=== PATIENT | male | born 1935 | race Caucasian/White ===

== ENCOUNTER → 2016-07-24 | Day surgery (SDC) | payer OTHER ==
[~2016-07-24] VITALS: Ht 182.9 cm; Wt 81.2 kg
[~2016-07-24] MED LIST: ALBU17IN INH; AMOX500C PO; ASPI81CH32 PO; ASPI81TA85 PO; ASPIRIN 81 MG CHEW TABLET PO ONE; B-12100010 PO; B-12500T2 PO; BABY81CH OR; BUPIVACAINE/EPIN 0.25% 30 ML VIAL As Ordered ONE; BUPIVACAINE/EPIN 0.25% 30 ML VIAL XX ONE; CLAR5CHW OR; CLOP75TA2 PO; COMBAER6 INH; DIOV160T5 OR; ESMOLOL INJ 100MG/10ML VIAL As Ordered ONE; FINA5TAB2 PO; FISH1000 PO; FLUD1TA PO; FLUO-144 TOP; FLUO20CA9 PO; FLUO40CA PO; FURO20TA2 OR; GABA-279 PO; GLUC1000 OR; GLYCOPYRROLATE INJ 0.2 MG/ML 2 ML VIAL As Ordered ONE; HYDR-3781 PO; IBUP200C PO; ICAP1CAP PO; K-TA10TA2 PO; LEVALBUTEROL 1.25 MG/0.5 ML CONCENTRATE NEB NEB ONE; LIDO1OIN2 TOP; LIDO5DIS36 TD; LIDOCAINE 2% INJ 100 MG/5 ML SDV (FOR ANES.) As Ordered ONE; LOPR50TA OR; LORA10TA2 PO; LORA1SOL PO; LOSA25TA8 PO; LR 1,000 ML IV SCH; LUBROIN4 OU; METF1000 PO; MULTCAP PO; MULTIVIT PO; NATUSOL OU; NEOSTIGMINE 1MG/ML 5 ML SYRINGE (J2710) As Ordered ONE; NIAC500T OR; NIAC500T5 PO; NITR0.4S SL; NITR4TASL SL; NORV5TAB PO; ONDANSETRON 4MG/2ML VIAL (J2405) As Ordered ONE; ONDANSETRON 4MG/2ML VIAL (J2405) IV PRN; PEPT262S PO; PERCOCET 5MG/325MG TAB PO PRN; PHENYLephrine HCL 500 MCG/5 ML (100MCG/ML) SYRINGE (J2370) As Ordered ONE; PLAV75TA2 OR; PLAV75TA38 PO; PREDOPD OD; PROPOFOL 200 MG/20 ML VIAL As Ordered ONE; RANI1TAB6 PO; ROCURONIUM BROMIDE 50 MG/5 ML VIAL As Ordered ONE; SENN8.6C PO; SENN8.6T14 OR; SENN8.6T63 PO; SIMV40TA2 PO; SIMV80TA PO; SUDAFED PE PO; TEARSPF OU; TRAM50TA2 PO; VIT D 2000 PO; VITA-122 PO; VITA100T OR; VITA1CAP2 PO; [UNRECOGNIZED DRUG - CODE] XX; dexameTHASONE 4 MG/ML 1ML VIAL (J1100) As Ordered ONE; fentaNYL 100 MCG/2 ML INJECTION (J3010) As Ordered ONE; fentaNYL 100 MCG/2 ML INJECTION (J3010) IV PRN
[2016-07-24 16:50] VITALS: BP 171/79
--- NOTE | 2016-07-25 09:49 | RO ---
DATE OF PROCEDURE: 07/24/2016 PREOPERATIVE DIAGNOSIS: Incarcerated recurrent left inguinal hernia. POSTOPERATIVE DIAGNOSIS: Incarcerated recurrent left inguinal hernia. PROCEDURE: Laparoscopic incarcerated recurrent left inguinal hernia repair with mesh. SURGEON: Dr. Rojas DIRECTOR GEOTHERMAL OPERATIONS: Dr. Andrew ANESTHESIA: General. ESTIMATED BLOOD LOSS: 5 mL. COMPLICATIONS: None. INDICATIONS FOR PROCEDURE: The patient is an 81-year-old male who has had three previous hernia repairs in the left groin, presents with an incarcerated recurrent hernia. Recommendation is to proceed with laparoscopic, possible open repair. Risks and benefits of the procedure, not limited, but including bleeding, infection, hernia recurrence, damage to surrounding structures, need for further surgery were discussed in detail with the patient. Informed consent was obtained and procedure was planned. DESCRIPTION OF PROCEDURE: The patient was brought back to operating room 8. After sufficient sedation, the abdomen sterilely prepped and draped. A Clinton catheter was placed. Next, a time-out was done to confirm proper patient and proper procedure. Following that, a 2 cm infraumbilical incision was made. Incision was carried down the level of fascia. Fascia was opened just to the right of midline. Preperitoneal space was entered and a balloon dissector was placed. After balloon dissection, that was removed and replaced with a 10 mm balloon port. The preperitoneal space was then insufflated to 50 mmHg. Two 5 mm ports were placed in the midline in between the umbilicus and the pubic symphysis. Using a combination of blunt sharp dissection, a large direct incarcerated hernia was carefully reduced on the left direct sub space. Adhesions were taken down using a combination of sharp dissection and some cautery. Once the hernia was able to be reduced then there was also an indirect hernia. This hernia sac was carefully dissected free from the cord structures, both posteriorly and laterally. Once all the peritoneum had been reduced back, the Bard 3-D Max large mesh was rolled up and placed inside the preperitoneal space on the left side. The mesh was laid flat, tacked to the pubic symphysis at the midline using a Pro Tacker, unrolled laterally. The hernia sac was then placed on top of the mesh and held in place as the preperitoneal space was desufflated. Next, the port sites were removed. The fascia at the umbilical port site was closed using a [id number] #0 Vicryl suture. Skin incisions were closed #4-0 Vicryl subcuticular sutures. The abdomen was cleaned and dried. Steri-Strips, 4x4 and tape were applied, thus ending procedure.
== END | disposition home or self-care (01) ==
LOC: M SDC 11:01
PROVIDERS: ATTEND Surgery
DX: K40.31 Unilateral inguinal hernia, with obstruction, without gangrene, recurrent (principal); I10 Essential (primary) hypertension; I48.91 Unspecified atrial fibrillation; I25.10 Atherosclerotic heart disease of native coronary artery without angina pectoris; E11.9 Type 2 diabetes mellitus without complications; J44.9 Chronic obstructive pulmonary disease, unspecified; G47.30 Sleep apnea, unspecified; N28.9 Disorder of kidney and ureter, unspecified; E78.00 Pure hypercholesterolemia, unspecified; I25.2 Old myocardial infarction; F41.9 Anxiety disorder, unspecified; F32.9 Major depressive disorder, single episode, unspecified; I50.9 Heart failure, unspecified; M51.9 Unspecified thoracic, thoracolumbar and lumbosacral intervertebral disc disorder; G62.9 Polyneuropathy, unspecified; Z95.0 Presence of cardiac pacemaker; Z79.899 Other long term (current) drug therapy; Z79.82 Long term (current) use of aspirin; Z79.02 Long term (current) use of antithrombotics/antiplatelets; Z79.84 Long term (current) use of oral hypoglycemic drugs; Z87.891 Personal history of nicotine dependence; Z95.5 Presence of coronary angioplasty implant and graft
CPT/HCPCS: 49651; C1781; J0690; J1100; J2370; J2405; J2710; J3010

== ENCOUNTER → 2016-09-28 | Outpatient (REF) | payer OTHER ==
[~2016-09-28] MED LIST changes: -ASPIRIN 81 MG CHEW TABLET PO ONE; -BUPIVACAINE/EPIN 0.25% 30 ML VIAL As Ordered ONE; -BUPIVACAINE/EPIN 0.25% 30 ML VIAL XX ONE; -ESMOLOL INJ 100MG/10ML VIAL As Ordered ONE; -GLYCOPYRROLATE INJ 0.2 MG/ML 2 ML VIAL As Ordered ONE; -LEVALBUTEROL 1.25 MG/0.5 ML CONCENTRATE NEB NEB ONE; -LIDOCAINE 2% INJ 100 MG/5 ML SDV (FOR ANES.) As Ordered ONE; -LR 1,000 ML IV SCH; -NEOSTIGMINE 1MG/ML 5 ML SYRINGE (J2710) As Ordered ONE; -ONDANSETRON 4MG/2ML VIAL (J2405) As Ordered ONE; -ONDANSETRON 4MG/2ML VIAL (J2405) IV PRN; -PERCOCET 5MG/325MG TAB PO PRN; -PHENYLephrine HCL 500 MCG/5 ML (100MCG/ML) SYRINGE (J2370) As Ordered ONE; -PROPOFOL 200 MG/20 ML VIAL As Ordered ONE; -ROCURONIUM BROMIDE 50 MG/5 ML VIAL As Ordered ONE; -dexameTHASONE 4 MG/ML 1ML VIAL (J1100) As Ordered ONE; -fentaNYL 100 MCG/2 ML INJECTION (J3010) As Ordered ONE; -fentaNYL 100 MCG/2 ML INJECTION (J3010) IV PRN
== END ==
LOC: M SFHCLERA 14:47
PROVIDERS: ATTEND Nurse Practitioner Family
DX: R30.0 Dysuria (principal)
CPT/HCPCS: 81002; 87086; G0463

== ENCOUNTER 2016-10-23 09:27 | Emergency (ER) | payer OTHER ==
[~2016-10-23] VITALS: Ht 182.9 cm; Wt 80.7 kg
[2016-10-23] MEDS ORDERED: ATEN25TA PO (09:42)
[2016-10-23] MEDS ORDERED: HYDR-3713 PO (09:42)
[2016-10-23] MEDS ORDERED: APAP325T PO (09:42)
[2016-10-23] MEDS ORDERED: PERCOCET 5MG/325MG TAB PO ONE (10:30)
--- NOTE | 2016-10-23 11:10 | REP ---
CT HEAD WITHOUT CONTRAST: HISTORY: Trauma. COMPARISON: 05/30/2014. Areas of decreased attenuation are present in the periventricular and subcortical white matter. This represents small vessel ischemic disease. There is no intraparenchymal hemorrhage, mass or midline shift. The ventricular system and cortical sulci are dilated consistent with mild volume loss. There is no extracerebral collection. There is no fracture. The visualized sinuses are clear. IMPRESSION: 1. Small vessel ischemic disease. 2. Mild volume loss. Signed by Javier Damian MD 10/23/2016 11:35 A
[2016-10-23 11:42] VITALS: BP 143/80
--- NOTE | 2016-10-23 11:52 | REP ---
CT CERVICAL SPINE WITHOUT CONTRAST: HISTORY: Trauma. There is no acute fracture or subluxation. Disc bulges are present at the C2-3 and C3-4 levels. Disc bulges with associated osteophyte formation are present at the C4-5 through C6-7 levels. There is minimal narrowing of the spinal canal. Uncinate process and/or facet hypertrophy are present at the C2-3 through C7-T1 levels. These findings produce minimal to moderate narrowing of the normal foramina. The C4-5 through C7-T1 intervertebral discs are decreased in height. Vacuum phenomenon is present at the C4-5 and C5-6 levels. These findings are consistent with disc degeneration. IMPRESSION: There is no acute fracture or subluxation. There is cervical spondylosis at the C2-3 through C7-T1 levels. Signed by Javier Damian MD 10/23/2016 11:57 A
== END 2016-10-23 11:43 | disposition home or self-care (01) ==
LOC: M ED 10:43
DX: S00.93XA Contusion of unspecified part of head, initial encounter (principal); S10.93XA Contusion of unspecified part of neck, initial encounter; W19.XXXA Unspecified fall, initial encounter; Y92.89 Other specified places as the place of occurrence of the external cause; Y93.89 Activity, other specified; Y99.8 Other external cause status; R51 Headache; I10 Essential (primary) hypertension; E11.9 Type 2 diabetes mellitus without complications; J44.9 Chronic obstructive pulmonary disease, unspecified; I25.2 Old myocardial infarction; F43.10 Post-traumatic stress disorder, unspecified; E78.9 Disorder of lipoprotein metabolism, unspecified; Z95.5 Presence of coronary angioplasty implant and graft; Z87.442 Personal history of urinary calculi; Z79.899 Other long term (current) drug therapy; Z79.01 Long term (current) use of anticoagulants; Z79.84 Long term (current) use of oral hypoglycemic drugs; Z79.82 Long term (current) use of aspirin; Z79.891 Long term (current) use of opiate analgesic; Z85.828 Personal history of other malignant neoplasm of skin

== ENCOUNTER 2017-02-05 20:06 | Emergency (ER) | payer OTHER ==
[~2017-02-05] VITALS: Ht 182.9 cm; Wt 84.1 kg
[~2017-02-05 20:06] MED LIST changes: +APAP325T4 PO; +ATEN25TA PO; +FLUD0.1T PO; -FLUD1TA PO; +FLUO20CA19 PO; -FLUO20CA9 PO; +HYDR-3713 PO; -IBUP200C PO; +IBUP200C10 PO; -LIDO5DIS36 TD; +LIDO5DIS41 TD; -METF1000 PO; +METF10004 PO; +PLAV1TAB2 PO; -PLAV75TA38 PO; +TEAR1SOL3 OU; -TEARSPF OU
[2017-02-05] MEDS ORDERED: NORC10TA21 PO (20:26)
[2017-02-05] MEDS ORDERED: MORPHINE 4 MG/ML 1ML SYRINGE IV PRN (21:00)
--- NOTE | 2017-02-05 21:40 | REPUSA ---
CT of the head Clinical history: trauma. Comparison: 10/23/2016. Protocol: Multiple axial CT images obtained with 5 mm slice thickness were obtained through the head without administration of contrast. Findings: The ventricles and sulci are symmetric but prominent in size bilaterally. There are periven tricular areas of low attenuation throughout the deep white matter. There is no evidence of acute hem orrhage or infarct. There is no midline shift, mass effect, or extra-axial fluid collection. The osse ous structures are unremarkable. The visualized paranasal sinuses and mastoid air cells are clear. Impression: No acute hemorrhage or infarct. Findings are consistent with age-related atrophy and obstetrics nurse janelle small vessel ischemic disease.
--- NOTE | 2017-02-05 21:40 | REPUSA ---
CT of the cervical spine Clinical history: Pain. Technique: Multiple axial CT images were obtained through the cervical spine without administration o f contrast. Coronal and sagittal 3-D reconstructed images were also obtained. Comparison: None. Findings: The cervical vertebral bodies are in satisfactory positioning and alignment. No fractures or dislocat ions are demonstrated. The odontoid process is intact. Intervertebral disc spaces are moderately narr owed at C4/C5, C5/C6, and C6/C7. There is no evidence of facet subluxation. Mild facet degenerative c hanges are seen bilaterally. The neural foramen appear grossly patent. The cervical cranial junction is intact. The cervical spinal canal demonstrates normal caliber and contour without evidence of spin al stenosis. The surrounding soft tissues are within normal limits. Impression: No acute fracture or traumatic injury. Mild bilateral facet arthropathy. Multilevel degen erative disc disease from C4 through C7.
[2017-02-05 21:43] LABS: BASO % 0.9 % (0.0-1.0); EOS # 0.8 K/mm3 (0.0-0.50); EOS % 13.4 % (0.0-3.0); LARGE UNSTAINED CELL # 0.2 K/mm3 (0.0-0.4); LARGE UNSTAINED CELL % 3.1 % (0.0-4.0); LYMPH % 18.6 % (24.0-44.0); MEAN CORPUSCULAR HEMOGLOBIN 29.6 pg (27.0-33.0); MEAN CORPUSCULAR HGB CONC 33.1 g/dl (32.0-36.5); MEAN CORPUSCULAR VOLUME 89.5 fl (80.0-96.0); MONO # 0.4 K/mm3 (0.0-0.8); MONO % 7.1 % (0.0-5.0); NEUTROPHILS # 3.2 K/mm3 (1.8-7.7); NEUTROPHILS % 56.9 % (36.0-66.0); PLATELET COUNT, AUTOMATED 213 k/mm3 (150-450); RED CELL DISTRIBUTION WIDTH 13.8 % (11.5-14.5); WHITE BLOOD COUNT 5.6 K/mm3 (4.0-10.0)
[2017-02-05 21:50] LABS: INR 0.95
[2017-02-05 22:14] LABS: ALBUMIN 3.4 GM/DL (3.2-5.2); ALBUMIN/GLOBULIN RATIO 1.06 (1.00-1.93); ALKALINE PHOSPHATASE 62 U/L (45-117); ALT/SGPT 18 U/L (12-78); ANION GAP 9 MEQ/L (8-16); AST/SGOT 13 U/L (15-37); BILIRUBIN,DIRECT < 0.1 MG/DL (0.0-0.2); BILIRUBIN,TOTAL 0.2 MG/DL (0.2-1.0); BLOOD UREA NITROGEN 13 MG/DL (7-18); CALCIUM LEVEL 8.8 MG/DL (8.8-10.2); CARBON DIOXIDE LEVEL 26 MEQ/L (21-32); CHLORIDE LEVEL 105 MEQ/L (98-107); CREATININE FOR GFR 0.72 MG/DL (0.70-1.30); GLOMERULAR FILTRATION RATE > 60.0 (>35); GLUCOSE, FASTING 121 MG/DL (83-110); POTASSIUM SERUM 4.4 MEQ/L (3.5-5.1); SODIUM LEVEL 140 MEQ/L (136-145); TOTAL PROTEIN 6.6 GM/DL (6.4-8.2)
[2017-02-05] MEDS ORDERED: LIDO1OIN2 TOP (22:42)
[2017-02-05 23:09] VITALS: BP 172/92
--- NOTE | 2017-02-06 08:15 | ECGEPIP ---
Stationary ECG Study [facility] - ED Test Date: 2017-02-05 Pat Name: BRANDT ADLER Department: Room: - Gender: M Controller Instructor: bianca FRANKLINB: 1935 Requested By: GOSIA Tapia Order Number: [id number] Reading MD: Eve Cortez Measurements Intervals [place] Rate: 61 P: 217 WV: 153 QRS: -70 QRSD: 167 T: 72 QT: 463 QTc: 469 Interpretive Statements ELECTRONIC ATRIAL PACEMAKER ELECTRONIC VENTRICULAR PACEMAKER ABNORMAL RHYTHM ECG Electronically Signed On 02-06-2017 8:15:37 EDT by Eve Cortez
== END 2017-02-05 23:11 | disposition home or self-care (01) ==
LOC: M ED 20:06
DX: S16.1XXA Strain of muscle, fascia and tendon at neck level, initial encounter (principal); S00.03XA Contusion of scalp, initial encounter; W19.XXXA Unspecified fall, initial encounter; Y92.89 Other specified places as the place of occurrence of the external cause; Y93.89 Activity, other specified; Y99.8 Other external cause status; M50.30 Other cervical disc degeneration, unspecified cervical region; I50.9 Heart failure, unspecified; Z91.81 History of falling; J44.9 Chronic obstructive pulmonary disease, unspecified; I11.0 Hypertensive heart disease with heart failure; E11.9 Type 2 diabetes mellitus without complications; G47.30 Sleep apnea, unspecified; F33.9 Major depressive disorder, recurrent, unspecified; F41.9 Anxiety disorder, unspecified; F43.10 Post-traumatic stress disorder, unspecified; Z79.899 Other long term (current) drug therapy; Z79.84 Long term (current) use of oral hypoglycemic drugs; Z79.82 Long term (current) use of aspirin; Z95.5 Presence of coronary angioplasty implant and graft; Z95.0 Presence of cardiac pacemaker; I25.2 Old myocardial infarction; Z87.442 Personal history of urinary calculi

== ENCOUNTER 2017-06-04 01:45 | Inpatient (IN) | payer OTHER ==
[2017-06-04] MEDS: NS 500 ML IV (02:15)
[2017-06-04 02:33] LABS: BASO # 0.1 10^3/uL (0.0-0.2); BASO % 0.9 % (0.0-1.0); EOS # 0.5 10^3/uL (0.0-0.50); EOS % 6.4 % (0.0-3.0); HEMATOCRIT 39.8 % (42.0-52.0); HEMOGLOBIN 13.1 g/dl (14.0-18.0); IMMATURE GRANULOCYTE % 0.4 % (0-0); LYMPH # 1.3 10^3/uL (1.5-4.5); LYMPH % 16.8 % (24.0-44.0); MEAN CORPUSCULAR HEMOGLOBIN 29.6 pg (27.0-33.0); MEAN CORPUSCULAR HGB CONC 32.9 g/dl (32.0-36.5); MONO # 0.9 10^3/uL (0.0-0.8); MONO % 11.2 % (0.0-5.0); NEUTROPHILS % 64.3 % (36.0-66.0); PLATELET COUNT, AUTOMATED 232 10^3/uL (150-450); RED BLOOD COUNT 4.42 10^6/uL (4.30-6.10); RED CELL DISTRIBUTION WIDTH 13.7 % (11.5-14.5); WHITE BLOOD COUNT 7.8 10^3/uL (4.0-10.0)
[2017-06-04 02:53] LABS: ANION GAP 5 MEQ/L (8-16); BLOOD UREA NITROGEN 18 MG/DL (7-18); CALCIUM LEVEL 9.1 MG/DL (8.8-10.2); CARBON DIOXIDE LEVEL 28 MEQ/L (21-32); CHLORIDE LEVEL 109 MEQ/L (98-107); CREATININE FOR GFR 0.85 MG/DL (0.70-1.30); GLOMERULAR FILTRATION RATE > 60.0 (>35); GLUCOSE, FASTING 109 MG/DL (83-110); POTASSIUM SERUM 3.7 MEQ/L (3.5-5.1); SODIUM LEVEL 142 MEQ/L (136-145)
[2017-06-04] MEDS: dexameTHASONE 20 MG/5 ML VIAL (J1100) IV (03:15)
[2017-06-04] MEDS: IPRATROPIUM 0.5MG/ALBUTEROL 2.5MG INH SOL UD 3ML (DUONEB)(J7620) NEB ×4 (03:15→15:51)
[2017-06-04 03:24] LABS: ABG BASE EXCESS -1.2 (-2.0-2.0); ABG HCO3 24.2 MEQ/L (22.0-26.0); ABG O2 SATURATION 99.2 % (95.0-99.0); ABG PARTIAL PRESSURE CO2 43.5 mmHg (35.0-45.0); ABG STANDARD HCO3 23.5 MEQ/L (22.0-26.0); ABG TOTAL CO2 25.6 MEQ/L (23.0-31.0); ABG pH (ARTERIAL) 7.364 UNITS (7.350-7.450)
[2017-06-04 03:43] LABS: LACTIC ACID SEPSIS PROTOCOL 1.5 MMOL/L (0.4-2.0)
[2017-06-04] MEDS ORDERED: IPRATROPIUM 0.5MG/ALBUTEROL 2.5MG INH SOL UD 3ML (DUONEB)(J7620) NEB (05:15)
[2017-06-04] MEDS: LevoFLOXacin 750 MG TABLET PO (05:51)
[2017-06-04] MEDS: methylPREDNISolone INJ 125 MG/2 ML VIAL (J2930) IV ×3 (05:51→21:08)
[2017-06-04 06:53] LABS: HEMATOCRIT 37.3 % (42.0-52.0); HEMOGLOBIN 12.1 g/dl (14.0-18.0); MEAN CORPUSCULAR HEMOGLOBIN 29.2 pg (27.0-33.0); MEAN CORPUSCULAR HGB CONC 32.4 g/dl (32.0-36.5); MEAN CORPUSCULAR VOLUME 89.9 fl (80.0-96.0); PLATELET COUNT, AUTOMATED 216 10^3/uL (150-450); RED BLOOD COUNT 4.15 10^6/uL (4.30-6.10); RED CELL DISTRIBUTION WIDTH 13.6 % (11.5-14.5); WHITE BLOOD COUNT 12.1 10^3/uL (4.0-10.0)
[2017-06-04 07:20] LABS: ANION GAP 7 MEQ/L (8-16); BLOOD UREA NITROGEN 15 MG/DL (7-18); CALCIUM LEVEL 8.4 MG/DL (8.8-10.2); CARBON DIOXIDE LEVEL 26 MEQ/L (21-32); CHLORIDE LEVEL 107 MEQ/L (98-107); CREATININE FOR GFR 0.67 MG/DL (0.70-1.30); GLOMERULAR FILTRATION RATE > 60.0 (>35); GLUCOSE, FASTING 147 MG/DL (83-110); POTASSIUM SERUM 3.8 MEQ/L (3.5-5.1); SODIUM LEVEL 140 MEQ/L (136-145)
[2017-06-04] MEDS: ACETAMINOPHEN TAB 650MG DOSE (2X325MG) PO (09:02)
[2017-06-04] MEDS: FAMOTIDINE 20 MG TAB PO ×2 (11:17→21:08)
[2017-06-04] MEDS: POTASSIUM CHLORIDE 10 MEQ SR TABLET PO (11:18)
[2017-06-04] MEDS: APIXABAN 2.5 MG TAB (ELIQUIS) PO ×2 (11:18→21:08)
[2017-06-04] MEDS: POLYVINYL ALCOHOL OPHTH SOLN 15 ML(LIQUITEARS) OU ×3 (14:38→21:09)
[2017-06-04] MEDS: SENNA 8.6 MG TAB (SENOKOT) PO ×2 (14:39→21:08)
[2017-06-04] MEDS: OMEPRAZOLE 20 MG CAP PO (21:08)
[2017-06-04] MEDS: SIMVASTATIN 40 MG TAB PO (21:08)
[2017-06-04] MEDS: GABAPENTIN 300 MG CAP PO (21:09)
[2017-06-05] MEDS: methylPREDNISolone INJ 125 MG/2 ML VIAL (J2930) IV (05:41)
[2017-06-05] MEDS: LevoFLOXacin 750 MG TABLET PO (05:41)
[2017-06-05 06:40] LABS: HEMATOCRIT 36.7 % (42.0-52.0); MEAN CORPUSCULAR HGB CONC 32.7 g/dl (32.0-36.5); MEAN CORPUSCULAR VOLUME 88.6 fl (80.0-96.0); PLATELET COUNT, AUTOMATED 241 10^3/uL (150-450); RED BLOOD COUNT 4.14 10^6/uL (4.30-6.10); RED CELL DISTRIBUTION WIDTH 13.5 % (11.5-14.5); WHITE BLOOD COUNT 15.5 10^3/uL (4.0-10.0)
[2017-06-05 07:06] LABS: ANION GAP 7 MEQ/L (8-16); BLOOD UREA NITROGEN 15 MG/DL (7-18); CALCIUM LEVEL 9.2 MG/DL (8.8-10.2); CARBON DIOXIDE LEVEL 27 MEQ/L (21-32); CHLORIDE LEVEL 104 MEQ/L (98-107); CREATININE FOR GFR 0.71 MG/DL (0.70-1.30); GLOMERULAR FILTRATION RATE > 60.0 (>35); GLUCOSE, FASTING 193 MG/DL (83-110); POTASSIUM SERUM 3.9 MEQ/L (3.5-5.1); SODIUM LEVEL 138 MEQ/L (136-145)
[2017-06-05] MEDS: ASPIRIN 81 MG ENTERIC TAB PO (08:57)
[2017-06-05] MEDS: APIXABAN 2.5 MG TAB (ELIQUIS) PO (08:57)
[2017-06-05] MEDS: FINASTERIDE 5 MG TAB PO (08:57)
[2017-06-05] MEDS: FAMOTIDINE 20 MG TAB PO (08:57)
[2017-06-05] MEDS: SENNA 8.6 MG TAB (SENOKOT) PO (08:57)
[2017-06-05] MEDS: OMEPRAZOLE 20 MG CAP PO (08:57)
[2017-06-05] MEDS: FLUDROCORTISONE ACETATE 0.1 MG TAB PO (08:57)
[2017-06-05] MEDS: FLUoxetine 20 MG CAP PO (08:57)
[2017-06-05] MEDS: POLYVINYL ALCOHOL OPHTH SOLN 15 ML(LIQUITEARS) OU (08:58)
[2017-06-05] MEDS: ACETAMINOPHEN TAB 650MG DOSE (2X325MG) PO (08:58)
[2017-06-05] MEDS: PREVNAR 13 VACCINE SYRINGE (CPT CODE:90670) IM (10:35)
[2017-06-05] MEDS ORDERED: IPRATROPIUM 0.5MG/ALBUTEROL 2.5MG INH SOL UD 3ML (DUONEB)(J7620) NEB (16:00)
[2017-06-05] MEDS ORDERED: ATENOLOL 25 MG TAB PO (21:00)
== END 2017-06-05 11:05 | disposition home or self-care (01) | DRG 392 ==
LOC: M ED 01:45 → M ED INP 04:48 → M MS5PR 12:20
DX: K29.00 Acute gastritis without bleeding (principal); J44.9 Chronic obstructive pulmonary disease, unspecified; K21.9 Gastro-esophageal reflux disease without esophagitis; J98.01 Acute bronchospasm; F03.90 Unspecified dementia, unspecified severity, without behavioral disturbance, psychotic disturbance, mood disturbance, and anxiety; I25.10 Atherosclerotic heart disease of native coronary artery without angina pectoris; F32.9 Major depressive disorder, single episode, unspecified; E11.9 Type 2 diabetes mellitus without complications; E78.5 Hyperlipidemia, unspecified; I10 Essential (primary) hypertension; L03.032 Cellulitis of left toe; Z87.442 Personal history of urinary calculi; Z96.641 Presence of right artificial hip joint; Z79.82 Long term (current) use of aspirin; Z79.84 Long term (current) use of oral hypoglycemic drugs; Z79.899 Other long term (current) drug therapy; Z87.891 Personal history of nicotine dependence

== ENCOUNTER 2017-06-13 16:24 | Emergency (ER) | payer OTHER ==
[2017-06-13] MEDS: IPRATROPIUM 0.5MG/ALBUTEROL 2.5MG INH SOL UD 3ML (DUONEB)(J7620) NEB (17:40)
== END 2017-06-13 18:16 | disposition home or self-care (01) ==
LOC: M ED 16:24
DX: J44.1 Chronic obstructive pulmonary disease with (acute) exacerbation (principal); M20.5X1 Other deformities of toe(s) (acquired), right foot; Z79.899 Other long term (current) drug therapy; Z79.84 Long term (current) use of oral hypoglycemic drugs; Z79.82 Long term (current) use of aspirin; Z87.891 Personal history of nicotine dependence; Z95.0 Presence of cardiac pacemaker; Z95.5 Presence of coronary angioplasty implant and graft; Z98.890 Other specified postprocedural states
CPT/HCPCS: 71046

== ENCOUNTER 2017-09-17 19:02 | Emergency (ER) | payer OTHER ==
[2017-09-17] MEDS: NS 500 ML IV (19:45)
[2017-09-17] MEDS: ONDANSETRON 4MG/2ML VIAL (J2405) IV (19:45)
[2017-09-17] MEDS: MORPHINE 4 MG/ML 1ML VIAL/SYRINGE (J2270) IV (19:58)
[2017-09-17 20:07] LABS: BASO # 0.1 10^3/uL (0.0-0.2); BASO % 0.9 % (0.0-1.0); EOS # 0.7 10^3/uL (0.0-0.50); EOS % 9.6 % (0.0-3.0); HEMATOCRIT 35.2 % (42.0-52.0); HEMOGLOBIN 11.5 g/dl (13.5-17.5); IMMATURE GRANULOCYTE % 0.4 % (0-3.0); LYMPH # 1.3 10^3/uL (1.5-4.5); LYMPH % 17.4 % (24.0-44.0); MEAN CORPUSCULAR HGB CONC 32.7 g/dl (32.0-36.5); MEAN CORPUSCULAR VOLUME 88.9 fl (80.0-96.0); MONO # 0.7 10^3/uL (0.0-0.8); MONO % 9.4 % (0.0-5.0); NEUTROPHILS # 4.6 10^3/uL (1.8-7.7); NEUTROPHILS % 62.3 % (36.0-66.0); PLATELET COUNT, AUTOMATED 207 10^3/uL (150-450); RED BLOOD COUNT 3.96 10^6/uL (4.30-6.10); WHITE BLOOD COUNT 7.4 10^3/uL (4.0-10.0)
[2017-09-17 20:32] LABS: ALBUMIN 3.5 GM/DL (3.2-5.2); ALBUMIN/GLOBULIN RATIO 1.17 (1.00-1.93); ALKALINE PHOSPHATASE 49 U/L (45-117); ALT/SGPT 13 U/L (12-78); ANION GAP 10 MEQ/L (8-16); AST/SGOT 10 U/L (7-37); BILIRUBIN,TOTAL 0.2 MG/DL (0.2-1.0); BLOOD UREA NITROGEN 14 MG/DL (7-18); CALCIUM LEVEL 8.6 MG/DL (8.8-10.2); CARBON DIOXIDE LEVEL 25 MEQ/L (21-32); CHLORIDE LEVEL 106 MEQ/L (98-107); CREATININE FOR GFR 0.78 MG/DL (0.70-1.30); GLOMERULAR FILTRATION RATE > 60.0 (>35); GLUCOSE, FASTING 174 MG/DL (70-100); LIPASE 88 U/L (73-393); SODIUM LEVEL 141 MEQ/L (136-145); TOTAL PROTEIN 6.5 GM/DL (6.4-8.2)
[2017-09-17] MEDS ORDERED: ISOVUE-370 76% 100ML VIAL (Q9967) As Ordered (20:43)
[2017-09-17 20:57] LABS: AMORPHOUS SEDIMENT RFX SMALL (NEGATIVE); CALCIUM OXALATE CRYSTALS RFX SMALL; KETONE, URINE AUTO RFX NEGATIVE (NEGATIVE); LEUKOCYTE ESTERASE UR AUTO RFX NEGATIVE (NEGATIVE); MUCUS, URINE RFX SMALL (NEGATIVE); NITRITE, URINE AUTO RFX NEGATIVE (NEGATIVE); RBC, URINE AUTO RFX TNTC /HPF (0-3); SPECIFIC GRAVITY UR AUTO RFX 1.026 (1.002-1.035); SQUAM EPITHELIAL CELL UR AURFX 0 /HPF (0-6)
[2017-09-17 21:02] LABS: WBC, URINE AUTO RFX 13 /HPF (0-3)
[2017-09-17] MEDS: OXYCODONE/APAP 5MG/325MG(BULK FOR ED) 1 TABLET PO (22:40)
== END 2017-09-17 22:41 | disposition home or self-care (01) ==
LOC: M ED 19:02
DX: N30.01 Acute cystitis with hematuria (principal); N20.1 Calculus of ureter; Z95.0 Presence of cardiac pacemaker; R94.31 Abnormal electrocardiogram [ECG] [EKG]; I48.91 Unspecified atrial fibrillation; E11.9 Type 2 diabetes mellitus without complications; I50.9 Heart failure, unspecified; I25.2 Old myocardial infarction; I10 Essential (primary) hypertension; N40.1 Benign prostatic hyperplasia with lower urinary tract symptoms; J44.9 Chronic obstructive pulmonary disease, unspecified; Z86.718 Personal history of other venous thrombosis and embolism; K57.90 Diverticulosis of intestine, part unspecified, without perforation or abscess without bleeding; Z95.5 Presence of coronary angioplasty implant and graft; Z98.61 Coronary angioplasty status; Z87.891 Personal history of nicotine dependence; Z79.82 Long term (current) use of aspirin; Z79.84 Long term (current) use of oral hypoglycemic drugs; Z79.899 Other long term (current) drug therapy
CPT/HCPCS: J2270

== ENCOUNTER 2017-09-29 13:48 | Emergency (ER) | payer OTHER ==
[2017-09-29] MEDS: TETRACAINE 0.5% OPHTH SOLN 4ML OD (15:37)
== END 2017-09-29 16:24 | disposition home or self-care (01) ==
LOC: M ED 13:48
DX: H11.31 Conjunctival hemorrhage, right eye (principal); E11.9 Type 2 diabetes mellitus without complications; I10 Essential (primary) hypertension; J44.9 Chronic obstructive pulmonary disease, unspecified; I25.10 Atherosclerotic heart disease of native coronary artery without angina pectoris; E78.00 Pure hypercholesterolemia, unspecified; F41.9 Anxiety disorder, unspecified; F33.9 Major depressive disorder, recurrent, unspecified; F43.10 Post-traumatic stress disorder, unspecified; M19.90 Unspecified osteoarthritis, unspecified site; I25.2 Old myocardial infarction; Z79.899 Other long term (current) drug therapy; Z79.82 Long term (current) use of aspirin
CPT/HCPCS: 99283

== ENCOUNTER 2017-11-22 08:51 | Inpatient (IN) | payer OTHER ==
[2017-11-22] MEDS: SENNA 8.6 MG TAB (SENOKOT) PO ×2 (09:00→20:34)
[2017-11-22] MEDS: FLUDROCORTISONE ACETATE 0.1 MG TAB PO (09:00)
[2017-11-22 09:46] LABS: BASO # 0.1 10^3/uL (0.0-0.2); BASO % 0.3 % (0.0-1.0); EOS % 0.2 % (0.0-3.0); HEMATOCRIT 32.7 % (42.0-52.0); HEMOGLOBIN 11.2 g/dl (13.5-17.5); IMMATURE GRANULOCYTE % 0.7 % (0-3.0); LYMPH # 0.4 10^3/uL (1.5-4.5); MEAN CORPUSCULAR HEMOGLOBIN 29.6 pg (27.0-33.0); MEAN CORPUSCULAR HGB CONC 34.3 g/dl (32.0-36.5); MEAN CORPUSCULAR VOLUME 86.5 fl (80.0-96.0); MONO # 1.1 10^3/uL (0.0-0.8); MONO % 5.7 % (0.0-5.0); NEUTROPHILS # 17.3 10^3/uL (1.8-7.7); NEUTROPHILS % 91.1 % (36.0-66.0); PLATELET COUNT, AUTOMATED 210 10^3/uL (150-450); RED BLOOD COUNT 3.78 10^6/uL (4.30-6.10); RED CELL DISTRIBUTION WIDTH 13.3 % (11.5-14.5)
[2017-11-22 09:56] LABS: PROTHROMBIN TIME 14.4 SECONDS (12.4-14.5)
[2017-11-22 09:57] LABS: PARTIAL THROMBOPLASTIN TIME 35.5 SECONDS (26.8-37.9)
[2017-11-22 10:16] LABS: ALBUMIN 3.4 GM/DL (3.2-5.2); ALKALINE PHOSPHATASE 42 U/L (45-117); ALT/SGPT 15 U/L (12-78); ANION GAP 8 MEQ/L (8-16); AST/SGOT 10 U/L (7-37); BILIRUBIN,DIRECT 0.2 MG/DL (0.0-0.2); BILIRUBIN,TOTAL 0.5 MG/DL (0.2-1.0); BLOOD UREA NITROGEN 15 MG/DL (7-18); CALCIUM LEVEL 8.3 MG/DL (8.8-10.2); CARBON DIOXIDE LEVEL 27 MEQ/L (21-32); CHLORIDE LEVEL 103 MEQ/L (98-107); CPK CREATINE PHOSPHOKINASE 56 U/L (39-308); GLOMERULAR FILTRATION RATE > 60.0 (>35); GLUCOSE, FASTING 131 MG/DL (70-100); POTASSIUM SERUM 3.1 MEQ/L (3.5-5.1); SODIUM LEVEL 138 MEQ/L (136-145); TOTAL PROTEIN 6.8 GM/DL (6.4-8.2); TROPONIN I < 0.02 NG/ML (< 0.10)
[2017-11-22 10:21] LABS: MB/CK RELATIVE INDEX 1.78 (< OR =4)
[2017-11-22 10:32] LABS: KETONE, URINE AUTO RFX 1+ mg/dL (NEGATIVE); LEUKOCYTE ESTERASE UR AUTO RFX 1+ (NEGATIVE); MUCUS, URINE RFX SMALL (NEGATIVE); NITRITE, URINE AUTO RFX NEGATIVE (NEGATIVE); RBC, URINE AUTO RFX 12 /HPF (0-3); SPECIFIC GRAVITY UR AUTO RFX 1.019 (1.002-1.035); SQUAM EPITHELIAL CELL UR AURFX 0 /HPF (0-6); WBC, URINE AUTO RFX 33 /HPF (0-3)
[2017-11-22 10:35] LABS: LIPASE 57 U/L (73-393)
[2017-11-22] MEDS ORDERED: ISOVUE-370 76% 100ML VIAL (Q9967) As Ordered (11:21)
[2017-11-22] MEDS: POTASSIUM CHLORIDE 10 MEQ SR TABLET PO (11:49)
[2017-11-22] MEDS: cefTRIAXone SOD 1 GM in D5W MINI-BAG PLUS 50 ML IV (13:06)
[2017-11-22] MEDS ORDERED: ONDANSETRON 4MG/2ML VIAL (J2405) IV (13:30)
[2017-11-22] MEDS ORDERED: BISACODYL 10 MG SUPP PR (13:30)
[2017-11-22] MEDS ORDERED: DEXTROSE 50% 50 ML SYRINGE IV (13:30)
[2017-11-22] MEDS ORDERED: NITROGLYCERIN 0.4 MG SUBL TABLET SL (13:30)
[2017-11-22] MEDS ORDERED: GLUCAGON FOR INJ 1 MG VIAL (J1610) SC (13:30)
[2017-11-22] MEDS ORDERED: IPRATROPIUM 0.5MG/ALBUTEROL 2.5MG INH SOL UD 3ML (DUONEB)(J7620) INH (13:30)
[2017-11-22] MEDS ORDERED: GLUCOSE 4 GM CHEW TABLET PO (13:30)
[2017-11-22] MEDS ORDERED: BISACODYL 5 MG TAB PO (13:30)
[2017-11-22 17:25] LABS: BEDSIDE GLUCOSE 184 MG/DL (83-110)
[2017-11-22] MEDS: POTASSIUM CHL PWD 20 MEQ PACKET PO (17:30)
[2017-11-22] MEDS: FLUoxetine 20 MG CAP PO (17:31)
[2017-11-22] MEDS: FAMOTIDINE 20 MG TAB PO ×2 (17:31→20:34)
[2017-11-22] MEDS: FINASTERIDE 5 MG TAB PO (17:31)
[2017-11-22] MEDS: HumaLOG INSULIN (NovoLOG) PER UNIT SC (17:31)
[2017-11-22] MEDS: CYANOCOBALAMIN 500 MCG TAB PO (17:32)
[2017-11-22] MEDS: ASPIRIN 81 MG ENTERIC TAB PO (17:32)
[2017-11-22] MEDS: APIXABAN 2.5 MG TAB (ELIQUIS) PO ×2 (17:32→20:34)
[2017-11-22] MEDS: MULTIVITAMINS/MINERALS THERAP 1 TAB PO (17:32)
[2017-11-22] MEDS: DONEPEZIL 5 MG TAB PO (20:34)
[2017-11-22] MEDS: VITAMIN D 1,000 INTERNATIONAL UNITS TABLET PO (20:34)
[2017-11-22] MEDS: SIMVASTATIN 40 MG TAB PO (20:34)
[2017-11-22] MEDS: ACETAMINOPHEN 500 MG TAB PO (20:34)
[2017-11-22] MEDS: LORATADINE 10 MG TAB PO (20:34)
[2017-11-22] MEDS: ATENOLOL 25 MG TAB PO (20:35)
[2017-11-22 20:45] LABS: BEDSIDE GLUCOSE 111 MG/DL (83-110)
[2017-11-23 04:40] LABS: BASO # 0.1 10^3/uL (0.0-0.2); BASO % 0.4 % (0.0-1.0); EOS # 0.1 10^3/uL (0.0-0.50); EOS % 0.5 % (0.0-3.0); HEMATOCRIT 33.9 % (42.0-52.0); HEMOGLOBIN 11.3 g/dl (13.5-17.5); IMMATURE GRANULOCYTE % 0.6 % (0-3.0); LYMPH # 0.9 10^3/uL (1.5-4.5); LYMPH % 5.2 % (24.0-44.0); MEAN CORPUSCULAR HEMOGLOBIN 29.3 pg (27.0-33.0); MEAN CORPUSCULAR HGB CONC 33.3 g/dl (32.0-36.5); MEAN CORPUSCULAR VOLUME 87.8 fl (80.0-96.0); MONO # 1.5 10^3/uL (0.0-0.8); MONO % 8.3 % (0.0-5.0); NEUTROPHILS # 15.1 10^3/uL (1.8-7.7); PLATELET COUNT, AUTOMATED 205 10^3/uL (150-450); RED BLOOD COUNT 3.86 10^6/uL (4.30-6.10); RED CELL DISTRIBUTION WIDTH 13.7 % (11.5-14.5); WHITE BLOOD COUNT 17.7 10^3/uL (4.0-10.0)
[2017-11-23 05:03] LABS: ALBUMIN 3.2 GM/DL (3.2-5.2); ALBUMIN/GLOBULIN RATIO 0.94 (1.00-1.93); ALKALINE PHOSPHATASE 42 U/L (45-117); ALT/SGPT 15 U/L (12-78); ANION GAP 8 MEQ/L (8-16); AST/SGOT 12 U/L (7-37); BILIRUBIN,TOTAL 0.5 MG/DL (0.2-1.0); BLOOD UREA NITROGEN 13 MG/DL (7-18); CALCIUM LEVEL 8.6 MG/DL (8.8-10.2); CARBON DIOXIDE LEVEL 29 MEQ/L (21-32); CHLORIDE LEVEL 105 MEQ/L (98-107); CREATININE FOR GFR 0.66 MG/DL (0.70-1.30); GLOMERULAR FILTRATION RATE > 60.0 (>35); GLUCOSE, FASTING 115 MG/DL (70-100); MAGNESIUM LEVEL 1.4 MG/DL (1.8-2.4); POTASSIUM SERUM 3.3 MEQ/L (3.5-5.1); SODIUM LEVEL 142 MEQ/L (136-145); TOTAL PROTEIN 6.6 GM/DL (6.4-8.2)
[2017-11-23] MEDS: MAG SULF 1GM/100ML (MAG RUN) 1 GM in APPROPRIATE DILUENT 1 EA IV ×2 (06:38→08:05)
[2017-11-23] MEDS: HumaLOG INSULIN (NovoLOG) PER UNIT SC ×3 (08:05→17:18)
[2017-11-23] MEDS: FLUoxetine 20 MG CAP PO (08:06)
[2017-11-23] MEDS: FLUDROCORTISONE ACETATE 0.1 MG TAB PO (08:06)
[2017-11-23] MEDS: ASPIRIN 81 MG ENTERIC TAB PO (08:06)
[2017-11-23] MEDS: CYANOCOBALAMIN 500 MCG TAB PO (08:06)
[2017-11-23] MEDS: MULTIVITAMINS/MINERALS THERAP 1 TAB PO (08:06)
[2017-11-23] MEDS: FAMOTIDINE 20 MG TAB PO ×2 (08:06→21:47)
[2017-11-23] MEDS: SENNA 8.6 MG TAB (SENOKOT) PO ×2 (08:07→21:47)
[2017-11-23] MEDS: APIXABAN 2.5 MG TAB (ELIQUIS) PO ×2 (08:07→21:47)
[2017-11-23] MEDS: FINASTERIDE 5 MG TAB PO (08:07)
[2017-11-23] MEDS: TAMSULOSIN 0.4 MG CAP PO (09:34)
[2017-11-23] MEDS: POTASSIUM CHLORIDE 10 MEQ SR TABLET PO (09:35)
[2017-11-23 11:22] LABS: BEDSIDE GLUCOSE 153 MG/DL (83-110)
[2017-11-23] MEDS: cefTRIAXone SOD 1 GM in D5W MINI-BAG PLUS 50 ML IV (12:37)
[2017-11-23 16:52] LABS: BEDSIDE GLUCOSE 123 MG/DL (83-110)
[2017-11-23] MEDS: SIMVASTATIN 40 MG TAB PO (21:47)
[2017-11-23] MEDS: VITAMIN D 1,000 INTERNATIONAL UNITS TABLET PO (21:47)
[2017-11-23] MEDS: LORATADINE 10 MG TAB PO (21:47)
[2017-11-23] MEDS: DONEPEZIL 5 MG TAB PO (21:48)
[2017-11-23] MEDS: ATENOLOL 25 MG TAB PO (21:48)
[2017-11-24 05:14] LABS: BASO # 0.1 10^3/uL (0.0-0.2); BASO % 0.5 % (0.0-1.0); EOS # 0.4 10^3/uL (0.0-0.50); EOS % 3.7 % (0.0-3.0); HEMATOCRIT 32.6 % (42.0-52.0); HEMOGLOBIN 10.9 g/dl (13.5-17.5); IMMATURE GRANULOCYTE % 0.4 % (0-3.0); LYMPH % 8.3 % (24.0-44.0); MEAN CORPUSCULAR HEMOGLOBIN 29.4 pg (27.0-33.0); MEAN CORPUSCULAR HGB CONC 33.4 g/dl (32.0-36.5); MEAN CORPUSCULAR VOLUME 87.9 fl (80.0-96.0); MONO # 0.9 10^3/uL (0.0-0.8); NEUTROPHILS # 9.1 10^3/uL (1.8-7.7); NEUTROPHILS % 79.1 % (36.0-66.0); PLATELET COUNT, AUTOMATED 218 10^3/uL (150-450); RED BLOOD COUNT 3.71 10^6/uL (4.30-6.10); RED CELL DISTRIBUTION WIDTH 13.6 % (11.5-14.5); WHITE BLOOD COUNT 11.5 10^3/uL (4.0-10.0)
[2017-11-24 05:42] LABS: ALBUMIN/GLOBULIN RATIO 0.88 (1.00-1.93); ALKALINE PHOSPHATASE 42 U/L (45-117); ALT/SGPT 16 U/L (12-78); ANION GAP 7 MEQ/L (8-16); AST/SGOT 14 U/L (7-37); BILIRUBIN,TOTAL 0.4 MG/DL (0.2-1.0); BLOOD UREA NITROGEN 13 MG/DL (7-18); CALCIUM LEVEL 8.4 MG/DL (8.8-10.2); CARBON DIOXIDE LEVEL 29 MEQ/L (21-32); CHLORIDE LEVEL 105 MEQ/L (98-107); CREATININE FOR GFR 0.67 MG/DL (0.70-1.30); GLOMERULAR FILTRATION RATE > 60.0 (>35); GLUCOSE, FASTING 149 MG/DL (70-100); MAGNESIUM LEVEL 1.7 MG/DL (1.8-2.4); POTASSIUM SERUM 3.8 MEQ/L (3.5-5.1); SODIUM LEVEL 141 MEQ/L (136-145); TOTAL PROTEIN 6.4 GM/DL (6.4-8.2)
[2017-11-24] MEDS: MAG SULF 1GM/100ML (MAG RUN) 1 GM in APPROPRIATE DILUENT 1 EA IV (07:24)
[2017-11-24] MEDS: HumaLOG INSULIN (NovoLOG) PER UNIT SC ×3 (08:11→17:34)
[2017-11-24] MEDS: FLUoxetine 20 MG CAP PO (08:12)
[2017-11-24] MEDS: FINASTERIDE 5 MG TAB PO (08:12)
[2017-11-24] MEDS: SENNA 8.6 MG TAB (SENOKOT) PO ×2 (08:12→21:23)
[2017-11-24] MEDS: FAMOTIDINE 20 MG TAB PO ×2 (08:12→21:22)
[2017-11-24] MEDS: APIXABAN 2.5 MG TAB (ELIQUIS) PO ×2 (08:12→21:23)
[2017-11-24] MEDS: FLUDROCORTISONE ACETATE 0.1 MG TAB PO (08:13)
[2017-11-24] MEDS: ASPIRIN 81 MG ENTERIC TAB PO (08:13)
[2017-11-24] MEDS: MULTIVITAMINS/MINERALS THERAP 1 TAB PO (08:13)
[2017-11-24] MEDS: TAMSULOSIN 0.4 MG CAP PO (08:13)
[2017-11-24] MEDS: CYANOCOBALAMIN 500 MCG TAB PO (08:13)
[2017-11-24] MEDS: CIPROFLOXACIN 500 MG TAB PO ×2 (10:58→17:33)
[2017-11-24 11:30] LABS: BEDSIDE GLUCOSE 168 MG/DL (83-110)
[2017-11-24 16:58] LABS: BEDSIDE GLUCOSE 114 MG/DL (83-110)
[2017-11-24 20:25] LABS: BEDSIDE GLUCOSE 170 MG/DL (83-110)
[2017-11-24] MEDS: SIMVASTATIN 40 MG TAB PO (21:23)
[2017-11-24] MEDS: ATENOLOL 25 MG TAB PO (21:23)
[2017-11-24] MEDS: DONEPEZIL 5 MG TAB PO (21:23)
[2017-11-24] MEDS: VITAMIN D 1,000 INTERNATIONAL UNITS TABLET PO (21:23)
[2017-11-24] MEDS: PERCOCET 5MG/325MG TAB PO (21:24)
[2017-11-24] MEDS: LORATADINE 10 MG TAB PO (21:24)
[2017-11-25] MEDS: ACETAMINOPHEN 500 MG TAB PO (01:49)
[2017-11-25] MEDS: CIPROFLOXACIN 500 MG TAB PO (05:11)
[2017-11-25 06:49] LABS: HEMATOCRIT 31.8 % (42.0-52.0); HEMOGLOBIN 10.7 g/dl (13.5-17.5); MEAN CORPUSCULAR HEMOGLOBIN 29.2 pg (27.0-33.0); MEAN CORPUSCULAR HGB CONC 33.6 g/dl (32.0-36.5); MEAN CORPUSCULAR VOLUME 86.9 fl (80.0-96.0); PLATELET COUNT, AUTOMATED 219 10^3/uL (150-450); RED BLOOD COUNT 3.66 10^6/uL (4.30-6.10); RED CELL DISTRIBUTION WIDTH 13.4 % (11.5-14.5); WHITE BLOOD COUNT 6.8 10^3/uL (4.0-10.0)
[2017-11-25 06:50] LABS: BASO # 0.1 10^3/uL (0.0-0.2); BASO % 0.7 % (0.0-1.0); EOS # 0.6 10^3/uL (0.0-0.50); EOS % 8.4 % (0.0-3.0); IMMATURE GRANULOCYTE % 0.4 % (0-3.0); LYMPH # 1.1 10^3/uL (1.5-4.5); MONO # 0.7 10^3/uL (0.0-0.8); MONO % 10.1 % (0.0-5.0); NEUTROPHILS # 4.4 10^3/uL (1.8-7.7); NEUTROPHILS % 64.4 % (36.0-66.0)
[2017-11-25 07:10] LABS: ALBUMIN 2.9 GM/DL (3.2-5.2); ALBUMIN/GLOBULIN RATIO 0.91 (1.00-1.93); ALKALINE PHOSPHATASE 38 U/L (45-117); ALT/SGPT 17 U/L (12-78); ANION GAP 8 MEQ/L (8-16); AST/SGOT 12 U/L (7-37); BILIRUBIN,TOTAL 0.3 MG/DL (0.2-1.0); BLOOD UREA NITROGEN 12 MG/DL (7-18); CALCIUM LEVEL 8.1 MG/DL (8.8-10.2); CARBON DIOXIDE LEVEL 27 MEQ/L (21-32); CHLORIDE LEVEL 106 MEQ/L (98-107); CREATININE FOR GFR 0.66 MG/DL (0.70-1.30); GLOMERULAR FILTRATION RATE > 60.0 (>35); GLUCOSE, FASTING 122 MG/DL (70-100); MAGNESIUM LEVEL 1.6 MG/DL (1.8-2.4); POTASSIUM SERUM 3.3 MEQ/L (3.5-5.1); SODIUM LEVEL 141 MEQ/L (136-145); TOTAL PROTEIN 6.1 GM/DL (6.4-8.2)
[2017-11-25] MEDS: MAG SULF 1GM/100ML (MAG RUN) 1 GM in APPROPRIATE DILUENT 1 EA IV ×2 (08:29→09:43)
[2017-11-25] MEDS: CYANOCOBALAMIN 500 MCG TAB PO (08:30)
[2017-11-25] MEDS: MULTIVITAMINS/MINERALS THERAP 1 TAB PO (08:30)
[2017-11-25] MEDS: TAMSULOSIN 0.4 MG CAP PO (08:30)
[2017-11-25] MEDS: ASPIRIN 81 MG ENTERIC TAB PO (08:30)
[2017-11-25] MEDS: FLUoxetine 20 MG CAP PO (08:30)
[2017-11-25] MEDS: FLUDROCORTISONE ACETATE 0.1 MG TAB PO (08:30)
[2017-11-25] MEDS: HumaLOG INSULIN (NovoLOG) PER UNIT SC (08:30)
[2017-11-25] MEDS: APIXABAN 2.5 MG TAB (ELIQUIS) PO (08:31)
[2017-11-25] MEDS: POTASSIUM CHLORIDE 10 MEQ SR TABLET PO (08:31)
[2017-11-25] MEDS: FINASTERIDE 5 MG TAB PO (08:31)
[2017-11-25] MEDS: SENNA 8.6 MG TAB (SENOKOT) PO (08:31)
[2017-11-25] MEDS: FAMOTIDINE 20 MG TAB PO (08:31)
== END 2017-11-25 12:30 | disposition home or self-care (01) | DRG 690 ==
LOC: M MS5PR 11-24 16:01 → M ED 08:51 → M ED INP 13:17 → M ICU 17:11
DX: N39.0 Urinary tract infection, site not specified (principal); E27.40 Unspecified adrenocortical insufficiency; N13.30 Unspecified hydronephrosis; I25.10 Atherosclerotic heart disease of native coronary artery without angina pectoris; E11.9 Type 2 diabetes mellitus without complications; R00.1 Bradycardia, unspecified; N20.0 Calculus of kidney; F03.90 Unspecified dementia, unspecified severity, without behavioral disturbance, psychotic disturbance, mood disturbance, and anxiety; B96.89 Other specified bacterial agents as the cause of diseases classified elsewhere; E53.8 Deficiency of other specified B group vitamins; E55.9 Vitamin D deficiency, unspecified; I48.91 Unspecified atrial fibrillation; E87.6 Hypokalemia; F32.9 Major depressive disorder, single episode, unspecified; E78.5 Hyperlipidemia, unspecified; I10 Essential (primary) hypertension; Z95.0 Presence of cardiac pacemaker; Z95.1 Presence of aortocoronary bypass graft; Z87.891 Personal history of nicotine dependence; Z77.090 Contact with and (suspected) exposure to asbestos; Z79.82 Long term (current) use of aspirin; Z79.01 Long term (current) use of anticoagulants; Z79.84 Long term (current) use of oral hypoglycemic drugs; Z79.899 Other long term (current) drug therapy

== ENCOUNTER 2017-12-29 20:08 | Emergency (ER) | payer OTHER ==
[2017-12-29] MEDS: NS 1,000 ML IV (21:45)
== END 2017-12-30 06:36 | disposition short-term general hospital (02) ==
LOC: M ED 12-30 06:36
DX: T83.022A Displacement of nephrostomy catheter, initial encounter (principal); Y92.9 Unspecified place or not applicable; Y93.9 Activity, unspecified; I25.2 Old myocardial infarction; E11.9 Type 2 diabetes mellitus without complications; I10 Essential (primary) hypertension; Z87.442 Personal history of urinary calculi; Z86.73 Personal history of transient ischemic attack (TIA), and cerebral infarction without residual deficits; Z86.718 Personal history of other venous thrombosis and embolism; J44.9 Chronic obstructive pulmonary disease, unspecified; K21.9 Gastro-esophageal reflux disease without esophagitis; K57.30 Diverticulosis of large intestine without perforation or abscess without bleeding; N40.0 Benign prostatic hyperplasia without lower urinary tract symptoms; M54.9 Dorsalgia, unspecified; D64.9 Anemia, unspecified; F41.9 Anxiety disorder, unspecified; F32.9 Major depressive disorder, single episode, unspecified; F03.90 Unspecified dementia, unspecified severity, without behavioral disturbance, psychotic disturbance, mood disturbance, and anxiety; H40.9 Unspecified glaucoma; Z95.5 Presence of coronary angioplasty implant and graft; Z95.0 Presence of cardiac pacemaker; Z95.1 Presence of aortocoronary bypass graft; Z87.891 Personal history of nicotine dependence; Z79.82 Long term (current) use of aspirin; Z79.84 Long term (current) use of oral hypoglycemic drugs; Z79.899 Other long term (current) drug therapy
CPT/HCPCS: 99284

== ENCOUNTER 2018-01-22 07:45 | Emergency (ER) | payer OTHER ==
[2018-01-22] MEDS: NORCO, ANEXSIA 5/325MG TABLET (HYDROcodone/ACETAMINOPHEN) PO (09:18)
== END 2018-01-22 09:19 | disposition home or self-care (01) ==
LOC: M ED 07:45
DX: N20.0 Calculus of kidney (principal); Z93.6 Other artificial openings of urinary tract status; K56.7 Ileus, unspecified; I25.10 Atherosclerotic heart disease of native coronary artery without angina pectoris; F03.90 Unspecified dementia, unspecified severity, without behavioral disturbance, psychotic disturbance, mood disturbance, and anxiety; E11.9 Type 2 diabetes mellitus without complications; I11.9 Hypertensive heart disease without heart failure; F32.9 Major depressive disorder, single episode, unspecified; E78.5 Hyperlipidemia, unspecified; K92.2 Gastrointestinal hemorrhage, unspecified; Z87.440 Personal history of urinary (tract) infections; Z87.442 Personal history of urinary calculi; Z95.1 Presence of aortocoronary bypass graft; Z87.891 Personal history of nicotine dependence; Z79.899 Other long term (current) drug therapy; Z79.82 Long term (current) use of aspirin; Z79.84 Long term (current) use of oral hypoglycemic drugs
CPT/HCPCS: 99284

== ENCOUNTER 2018-02-27 15:16 | Emergency (ER) | payer OTHER ==
[2018-02-27 16:45] LABS: ANION GAP 6 MEQ/L (8-16); BLOOD UREA NITROGEN 16 MG/DL (7-18); CALCIUM LEVEL 8.8 MG/DL (8.8-10.2); CARBON DIOXIDE LEVEL 26 MEQ/L (21-32); CHLORIDE LEVEL 106 MEQ/L (98-107); CREATININE FOR GFR 0.78 MG/DL (0.70-1.30); GLOMERULAR FILTRATION RATE > 60.0 (>35); GLUCOSE, FASTING 156 MG/DL (70-100); POTASSIUM SERUM 4.8 MEQ/L (3.5-5.1); SODIUM LEVEL 138 MEQ/L (136-145)
[2018-02-27 17:46] LABS: KETONE, URINE AUTO RFX NEGATIVE (NEGATIVE); LEUKOCYTE ESTERASE UR AUTO RFX 3+ (NEGATIVE); NITRITE, URINE AUTO RFX NEGATIVE (NEGATIVE); RBC, URINE AUTO RFX 138 /HPF (0-3); SQUAM EPITHELIAL CELL UR AURFX 0 /HPF (0-6); WBC, URINE AUTO RFX TNTC /HPF (0-3); YEAST LIKE CELL URINE AUTO RFX SMALL
[2018-02-27 18:00] LABS: BASO # 0.1 10^3/uL (0.0-0.2); BASO % 0.5 % (0.0-1.0); EOS # 0.6 10^3/uL (0.0-0.50); EOS % 5.9 % (0.0-3.0); HEMATOCRIT 32.1 % (42.0-52.0); HEMOGLOBIN 9.9 g/dl (13.5-17.5); IMMATURE GRANULOCYTE % 0.5 % (0-3.0); MEAN CORPUSCULAR HEMOGLOBIN 26.7 pg (27.0-33.0); MEAN CORPUSCULAR HGB CONC 30.8 g/dl (32.0-36.5); MEAN CORPUSCULAR VOLUME 86.5 fl (80.0-96.0); MONO # 0.7 10^3/uL (0.0-0.8); MONO % 7.2 % (0.0-5.0); NEUTROPHILS # 7.4 10^3/uL (1.8-7.7); NEUTROPHILS % 75.9 % (36.0-66.0); PLATELET COUNT, AUTOMATED 284 10^3/uL (150-450); RED BLOOD COUNT 3.71 10^6/uL (4.30-6.10); RED CELL DISTRIBUTION WIDTH 15.4 % (11.5-14.5); WHITE BLOOD COUNT 9.7 10^3/uL (4.0-10.0)
[2018-02-27] MEDS: NITROFURANTOIN (MACROBID) 100 MG CAP PO (18:49)
== END 2018-02-27 18:50 | disposition home or self-care (01) ==
LOC: M ED 15:16
DX: N12 Tubulo-interstitial nephritis, not specified as acute or chronic (principal); E11.9 Type 2 diabetes mellitus without complications; I25.10 Atherosclerotic heart disease of native coronary artery without angina pectoris; I25.2 Old myocardial infarction; Z87.442 Personal history of urinary calculi; J44.9 Chronic obstructive pulmonary disease, unspecified; K21.9 Gastro-esophageal reflux disease without esophagitis; N40.0 Benign prostatic hyperplasia without lower urinary tract symptoms; Z86.73 Personal history of transient ischemic attack (TIA), and cerebral infarction without residual deficits; K57.92 Diverticulitis of intestine, part unspecified, without perforation or abscess without bleeding; Z95.1 Presence of aortocoronary bypass graft; Z93.6 Other artificial openings of urinary tract status; Z96.0 Presence of urogenital implants; Z79.899 Other long term (current) drug therapy; Z79.82 Long term (current) use of aspirin; Z79.84 Long term (current) use of oral hypoglycemic drugs
CPT/HCPCS: 76775

== ENCOUNTER 2018-06-22 13:58 | Inpatient (IN) | payer MEDICARE, OTHER ==
[~2018-06-22] VITALS: Ht 182.9 cm; Wt 80.9 kg
[~2018-06-22 13:58] MED LIST changes: +ACET-683 PO; +ALL10TAB28 PO; +AMLO5TAB6 PO; +ASPI81TAEC PO; +BACT400T PO; +BUSP10TA PO; +CEPH500T PO; +CIPR-249 PO; +DONETAB5 PO; +DONETAB6 PO; +ELIQ2.5T PO; +FLOM0.4C39 PO; +FLUTISP NARES; +GABA-1171 PO; -GABA-279 PO; +GABA-843 PO; +HYDR-3719 PO; -HYDR-3781 PO; +HYDR2.5T34 PO; -IBUP200C10 PO; +IBUP200C25 PO; +KEFL500C17 PO; +LIDO1CRE2 TOP; +LORA-243 PO; -LORA10TA2 PO; +LOSA25TA14 PO; -LOSA25TA8 PO; +MACR100C43 PO; +METF-808 PO; +NALOXONE INH; +NEUR100C PO; +NORC10TA21 PO; +PATIENT COMMENT; +PERC5TAB12 PO; +PYRI1TAB5 PO; +ROPI0.253 PO; +ROSU40TA3 PO; -SIMV80TA PO; +SIMV80TA13 PO; +VITMTA PO
[2018-06-22] MEDS ORDERED: ELIQ5TAB PO (14:27)
[2018-06-22 14:49] LABS: BASO # 0.1 10^3/uL (0.0-0.2); BASO % 0.8 % (0.0-1.0); EOS # 0.5 10^3/uL (0.0-0.50); EOS % 8.4 % (0.0-3.0); HEMATOCRIT 31.5 % (42.0-52.0); HEMOGLOBIN 9.8 g/dl (13.5-17.5); LYMPH # 1.5 10^3/uL (1.5-4.5); LYMPH % 24.3 % (24.0-44.0); MEAN CORPUSCULAR HEMOGLOBIN 24.7 pg (27.0-33.0); MEAN CORPUSCULAR HGB CONC 31.1 g/dl (32.0-36.5); MEAN CORPUSCULAR VOLUME 79.5 fl (80.0-96.0); MONO # 0.8 10^3/uL (0.0-0.8); MONO % 12.3 % (0.0-5.0); NEUTROPHILS # 3.4 10^3/uL (1.8-7.7); NEUTROPHILS % 53.9 % (36.0-66.0); PLATELET COUNT, AUTOMATED 201 10^3/uL (150-450); RED BLOOD COUNT 3.96 10^6/uL (4.30-6.10); WHITE BLOOD COUNT 6.3 10^3/uL (4.0-10.0)
[2018-06-22 15:00] LABS: INR 1.17
[2018-06-22 15:02] LABS: PARTIAL THROMBOPLASTIN TIME 47.2 SECONDS (25.4-37.6)
[2018-06-22 15:14] LABS: ALBUMIN 3.3 GM/DL (3.2-5.2); ALT/SGPT 16 U/L (12-78); BILIRUBIN,DIRECT 0.1 MG/DL (0.0-0.2); BILIRUBIN,TOTAL 0.2 MG/DL (0.2-1.0); BLOOD UREA NITROGEN 19 MG/DL (7-18); C REACTIVE PROTEIN QUANTITATIV < 0.30 MG/DL (0.00-0.30); CALCIUM LEVEL 8.4 MG/DL (8.8-10.2); CARBON DIOXIDE LEVEL 24 MEQ/L (21-32); CHLORIDE LEVEL 105 MEQ/L (98-107); CPK CREATINE PHOSPHOKINASE 58 U/L (39-308); CREATININE FOR GFR 0.89 MG/DL (0.70-1.30); GLOMERULAR FILTRATION RATE > 60.0 (>35); GLUCOSE, FASTING 124 MG/DL (70-100); MB/CK RELATIVE INDEX 2.41 (< OR =4); POTASSIUM SERUM 3.7 MEQ/L (3.5-5.1); SODIUM LEVEL 138 MEQ/L (136-145); TOTAL PROTEIN 6.6 GM/DL (6.4-8.2); TROPONIN I < 0.02 NG/ML (< 0.10)
--- NOTE | 2018-06-22 15:40 | REP ---
Chest one-view HISTORY: Chest pain Comparison: 11/22/2017 Parenchymal density is present in the right lower lobe consistent with scarring. The left lung is clear. The heart is normal in size. The pulmonary vasculature is normal in appearance. A cardiac pacemaker is present. Impression: No acute disease. Electronically Signed by Javier Damian MD 06/22/2018 03:31 P
[2018-06-22] MEDS ORDERED: NS 1,000 ML IV ONE (16:45)
[2018-06-22] MEDS ORDERED: ISOVUE-370 76% 100ML VIAL (Q9967) As Ordered ONE (17:06)
--- NOTE | 2018-06-22 17:56 | ECGEPIP ---
Stationary ECG Study [facility] - ED Test Date: 2018-06-22 Pat Name: BRANDT ADLER Department: Room: - Gender: M [employer] Professor: ROSALIND FRANKLINB: 1935 Requested By: Ba Shukla Order Number: [id number] Reading MD: Eve Cortez Measurements Intervals [place] Rate: 70 P: 255 [place]: 149 QRS: -82 QRSD: 181 T: 87 QT: 461 QTc: 499 Interpretive Statements ELECTRONIC ATRIAL PACEMAKER ELECTRONIC VENTRICULAR PACEMAKER ABNORMAL RHYTHM ECG Electronically Signed On 06-22-2018 17:55:48 EST by Eve Cortez
--- NOTE | 2018-06-22 17:57 | REP ---
CT ANGIO CHEST: HISTORY: Chest pain. CONTRAST: Isovue-370, 75 mL COMPARISON: 11/15/2014 There are no filling defects in the main, right and left pulmonary arteries or their branches. Patchy density is present in the right upper and lower lobe consistent with infiltrates. The left lung is clear. There is no pleural effusion. The heart is normal in size. There is mild dilatation of the ascending thoracic aorta measuring 4.2 cm. Atherosclerotic calcification is present in the thoracic aorta. Degenerative change is present in the spine. IMPRESSION: 1. There is no pulmonary embolism. 2. Right upper and lower lobe infiltrates. Electronically Signed by Javier Damian MD 06/22/2018 06:02 P
[2018-06-22] MEDS ORDERED: cefTRIAXone SOD 1 GM in D5W MINI-BAG PLUS 50 ML IV ONE (18:45)
[2018-06-22] MEDS ORDERED: AZITHROMYCIN INJ 500 MG, VIAL MATE ADAPTER 1 EACH in D5W 250 ML IV ONE (18:45)
[2018-06-22] MEDS ORDERED: ACETAMINOPHEN TAB 650MG DOSE (2X325MG) PO PRN (19:15)
[2018-06-22] MEDS ORDERED: IPRATROPIUM 0.5MG/ALBUTEROL 2.5MG INH SOL UD 3ML (DUONEB)(J7620) INH PRN (19:30)
[2018-06-22] MEDS ORDERED: CETIRIZINE (ZyrTEC) 10 MG TAB PO PRN (19:30)
--- NOTE | 2018-06-22 20:16 | HPE ---
DATE OF ADMISSION: 06/22/2018 PRIMARY CARE PROVIDER: [facility] ATTENDING PHYSICIAN: Dr. Pope CHIEF COMPLAINT: Coughing with chest pain for a couple of days. HISTORY OF PRESENT ILLNESS: The is [id number]-lnw white male with several chronic medical conditions listed below, came to the ER for evaluation of above complaints. History is provided by himself, however, he is a poor historian. Per the patient, the last couple of days he said he has been coughing with whitish sputum and also he developed chest pain which is located in his front chest. The worst pain is about 5/10 and radiated to his both neck and arm. He also has felt cold and chills, but no fever at home. In the ER, he had a chest x-ray as well as CT angiogram of his chest which demonstrated he has some infiltrate in his right lung. Medicine service called for pneumonia. REVIEW OF SYSTEMS: Denies fever, but positive chills. No headache. No blurry vision. No shortness of breath. Positive cough with whitish sputum. No nausea, no vomiting. No abdominal pain. No diarrhea. No tingling, numbness, weakness arms, lower extremities. All other systems reviewed but negative. PAST MEDICAL HISTORY: 1. Coronary artery disease, status post coronary artery bypass graft (CABG). 2. Symptomatic bradycardia, status post pacemaker placement. 3. Depression. 4. Dementia. 5. Type 2 diabetes. 6. Hypertension. 7. Dyslipidemia. 8. Questionable proximal atrial fibrillation, on Eliquis. PAST SURGICAL HISTORY: 1. Pacemaker placement in 2010. 2. Multiple hernia repair. 3. Tonsillectomy. 4. Right hip replacement. FAMILY HISTORY: His father from heart attack at age 62 and his brother from sudden at age 62. Mother has brain cancer and also has family history of diabetes. SOCIAL HISTORY: Remote tobacco use, but quit many years. No alcohol abuse. No history of drug abuse. He is living with his and his two adult kids and he is FULL CODE. ALLERGIES: No known drug allergies. MEDICATIONS: - Eliquis 5 mg by mouth twice a day - atenolol 25 mg by mouth daily - Aricept 10 mg by mouth daily - fluoxetine 60 mg by mouth daily - Pepcid 20 mg by mouth twice a day - finasteride 5 mg by mouth daily - fluticasone 0.1 mg by mouth daily - Neurontin 100 mg by mouth three times a day - Crestor 20 mg by mouth daily - Flomax 0.4 mg by mouth daily - amlodipine 5 mg by mouth daily - BuSpar 10 mg by mouth daily - Requip 0.25 mg by mouth p.m. PHYSICAL EXAMINATION: VITAL SIGNS: Temperature 98.3, heart rate 68, respiratory rate 20, blood pressure 150/75, oxygen saturation 96% on room air. GENERAL: He is awake, alert, oriented times three. He is not in acute distress. HEENT: Atraumatic. Pupils equal, round and reactive to light. No jaundice. Extraocular muscles intact. Ears, nose, and throat normal. Mouth: Mucous not dry. Neck: No JVD. No bruits. LUNGS: Clear. No wheezing, no crackles. HEART: S1, S2, regular. No murmur. ABDOMEN: Soft, positive bowel sounds, nontender. LOWER EXTREMITIES: No edema in bilateral lower extremities. SKIN: No rash. NEUROLOGICAL: Nonfocal. PSYCHOLOGICAL: No acute psychosis. DIAGNOSTICS AND LABS STUDIES: Include the following: CBC and differential: WBC 6.3, hemoglobin and hematocrit 9.8/31.5, platelets 201. Sodium 138, potassium 3.7, chloride 105, bicarbonate 24, BUN 19, creatinine 0.9, glucose 124. Troponin negative. Chest x-ray as well as CT of chest reviewed. IMPRESSION: 1. Community acquired pneumonia. 2. Type 2 diabetes. 3. Hypertension. 4. Dyslipidemia. 5. History of coronary artery disease. 6. Paroxysmal atrial fibrillation. PLAN: Patient will be admitted to medical-surgical floor. Will continue his home medications. Will start him on azithromycin and ceftriaxone for covering community acquired pneumonia. Dr. Pope will followup tomorrow. CRISS
[2018-06-22 22:45] VITALS: BP 167/83
[2018-06-22] MEDS: APIXABAN 5 MG TAB (ELIQUIS) PO SCH (23:11)
[2018-06-22] MEDS: rOPINIRole 0.25 MG TAB(REQUIP) PO SCH (23:12)
[2018-06-22] MEDS: ATENOLOL 25 MG TAB PO SCH (23:12)
[2018-06-22] MEDS: VITAMIN D 1,000 INTERNATIONAL UNITS TABLET PO SCH (23:12)
[2018-06-22] MEDS: FAMOTIDINE 20 MG TAB PO SCH (23:12)
[2018-06-22] MEDS: SENNA 8.6 MG TAB (SENOKOT) PO SCH (23:12)
[2018-06-22] MEDS: POTASSIUM CHLORIDE 10 MEQ SR TABLET PO SCH (23:13)
[2018-06-22] MEDS: GABAPENTIN 100 MG CAP PO SCH (23:13)
[2018-06-23 06:00] VITALS: BP 157/75
[2018-06-23 06:07] LABS: BASO # 0.1 10^3/uL (0.0-0.2); BASO % 0.9 % (0.0-1.0); EOS # 0.6 10^3/uL (0.0-0.50); EOS % 8.3 % (0.0-3.0); HEMATOCRIT 33.1 % (42.0-52.0); HEMOGLOBIN 10.5 g/dl (13.5-17.5); LYMPH # 1.3 10^3/uL (1.5-4.5); LYMPH % 18.3 % (24.0-44.0); MEAN CORPUSCULAR HEMOGLOBIN 24.9 pg (27.0-33.0); MEAN CORPUSCULAR HGB CONC 31.7 g/dl (32.0-36.5); MEAN CORPUSCULAR VOLUME 78.6 fl (80.0-96.0); MONO # 0.9 10^3/uL (0.0-0.8); NEUTROPHILS # 4.1 10^3/uL (1.8-7.7); NEUTROPHILS % 59.2 % (36.0-66.0); PLATELET COUNT, AUTOMATED 204 10^3/uL (150-450); RED BLOOD COUNT 4.21 10^6/uL (4.30-6.10)
[2018-06-23 06:33] LABS: BLOOD UREA NITROGEN 11 MG/DL (7-18); CALCIUM LEVEL 8.1 MG/DL (8.8-10.2); CARBON DIOXIDE LEVEL 27 MEQ/L (21-32); CHLORIDE LEVEL 104 MEQ/L (98-107); CREATININE FOR GFR 0.62 MG/DL (0.70-1.30); GLOMERULAR FILTRATION RATE > 60.0 (>35); GLUCOSE, FASTING 81 MG/DL (70-100); POTASSIUM SERUM 3.2 MEQ/L (3.5-5.1); SODIUM LEVEL 140 MEQ/L (136-145)
[2018-06-23] MEDS ORDERED: GLUCOSE 4 GM CHEW TABLET PO PRN (08:00)
[2018-06-23] MEDS ORDERED: DEXTROSE 50% 50 ML SYRINGE IV PRN (08:00)
[2018-06-23] MEDS ORDERED: GLUCAGON FOR INJ 1 MG VIAL (J1610) SC PRN (08:00)
--- NOTE | 2018-06-23 08:11 | IPNPDOC ---
Date Seen The patient was seen on 06/23/18. Progress Note SUBJECTIVE: Patient is a 89-vjuxo-xtt white male who was seen and examined this morning at bedside. He has a hard of hearing. He states he has no complaints this morning is feeling relatively well. He denies any shortness of breath chest pain, nausea, vomiting, diarrhea. OBJECTIVE PHYSICAL EXAMINATION: VITAL SIGNS: Please see below. PHYSICAL EXAMINATION: GENERAL: He is awake, alert, oriented times three. He is not in acute distress. HEENT: Atraumatic. Pupils equal, round and reactive to light. No jaundice. Extraocular muscles intact. Ears, nose, and throat normal. Mouth: Mucous not dry. No JVD, No bruits. LUNGS: Clear to auscultate in the upper lobes. Diminished breath sounds in the l ower lobes bilaterally. No wheezing, no crackles. HEART: S1, S2, regular. No murmur. ABDOMEN: Soft, positive bowel sounds, nontender. LOWER EXTREMITIES: No edema in bilateral lower extremities. SKIN: No rash. NEUROLOGICAL: Nonfocal. LABORATORY DATA, IMAGING STUDIES, MICROBIOLOGY: Please see below. DVT prophylaxis ordered?: Lovenox 40 mg SC ASSESSMENT AND PLAN: Patient is a 71-ircwt-sss white male PROBLEMS: 1. Community acquired pneumonia -CURB 65: 3 points. For confusion(patient has an underlying dementia but unsure to truly assess the severity and what is baseline), BUN at 19, and age greater than 65. -CTA: Right upper and lower lobe infiltrates. -Respiratory panel negative -Blood cultures 2 negative -No leukocytosis and afebrile -c/w azithromycin and ceftriaxone 2. Type 2 diabetes with peripheral neuropathy -Held home metformin 850 mg by mouth twice a day Insulin sliding scale -[id number] ordered -c/w gabapentin 100 mg 3. Hypertension. -c/w Norvasc 5 mg 4. Dyslipidemia. -c/w Crestor 20 mg 5. History of coronary artery disease. -c/w atenolol 25 mg 6. Paroxysmal atrial fibrillation. -c/w Eliquis 5 mg -rate controlled with atenolol 25 mg 7. Alzheimer's dementia -c/w Aricept 10 mg qhs, Requip 0.25 mg, Prozac 60 mg 8. Seasonal allergies -c/w cetirizine PRN plus Flonase nasal spray 9. BPH -c/w Flomax 0.4 mg plus finasteride 20 mg 10. Adrenal insufficiency? -c/w home Florinef 5mg Diet: Consistent carbohydrates +2 g sodium + low-cholesterol DVT prophylaxis: Lovenox 40 mg SC Disposition pending clinical improvement possible discharge in 24-48 hrs. VS, I&O, 24H, Soraya Vital Signs/I&O Vital Signs Date Time Temp Pulse Resp B/P (MAP) Pulse Ox O2 Delivery O2 Flow Rate FiO2 06/23/18 06:00 97.8 64 17 157/75 (102) 93 Room Air I&O- Last 24 Hours up to 6 AM 06/23/18 06:00 Intake Total 290 ml Output Total 725 ml Balance -435 ml Laboratory Data 24H LABS Laboratory Tests 2 06/22/18 14:36: Immature Granulocyte % (Auto) 0.3, White Blood Count 6.3, Red Blood Count 3.96L, Hemoglobin 9.8L, Hematocrit 31.5L, Mean Corpuscular Volume 79.5L, Mean Corpuscular Hemoglobin 24.7L, Mean Corpuscular Hemoglobin Concent 31.1L, Red Cell Distribution Width 18.6H, Platelet Count 201, Neutrophils (%) (Auto) 53.9, Lymphocytes (%) (Auto) 24.3, Monocytes (%) (Auto) 12.3H, Eosinophils (%) (Auto) 8.4H, Basophils (%) (Auto) 0.8, Neutrophils # (Auto) 3.4, Lymphocytes # (Auto) 1.5, Monocytes # (Auto) 0.8, Eosinophils # (Auto) 0.5, Basophils # (Auto) 0.1, Nucleated Red Blood Cells % (auto) 0.0, Prothrombin Time 15.0H, Prothromb Time International Ratio 1.17, Activated Partial Thromboplast Time 47.2H, Anion Gap 9, Glomerular Filtration Rate > 60.0, Calcium Level 8.4L, Aspartate Amino Transf (AST/SGOT) 12, Alanine Aminotransferase (ALT/SGPT) 16, Alkaline Phosphatase 48, Total Bilirubin 0.2, Direct Bilirubin 0.1, Total Creatine Kinase 58, Creatine Kinase MB 1.0, Creatine Kinase MB Relative Index 2.41, Troponin I < 0.02, C- Reactive Protein, Quantitative < 0.30, Total Protein 6.6, Albumin 3.3, Albumin/Globulin Ratio 1.00, Thyroid Stimulating Hormone (TSH) 1.920 06/23/18 05:27: Immature Granulocyte % (Auto) 0.3, White Blood Count 7.0, Red Blood Count 4.21L, Hemoglobin 10.5L, Hematocrit 33.1L, Mean Corpuscular Volume 78.6L, Mean Corpuscular Hemoglobin 24.9L, Mean Corpuscular Hemoglobin Concent 31.7L, Red Cell Distribution Width 18.8H, Platelet Count 204, Neutrophils (%) (Auto) 59.2, Lymphocytes (%) (Auto) 18.3L, Monocytes (%) (Auto) 13.0H, Eosinophils (%) (Auto) 8.3H, Basophils (%) (Auto) 0.9, Neutrophils # (Auto) 4.1, Lymphocytes # (Auto) 1.3L, Monocytes # (Auto) 0.9H, Eosinophils # (Auto) 0.6H, Basophils # (Auto) 0.1, Nucleated Red Blood Cells % (auto) 0.0, Anion Gap 9, Glomerular Filtration Rate > 60.0, Calcium Level 8.1L, Blood Urea Nitrogen 11, Creatinine 0.62L, Sodium Level 140, Potassium Level 3.2L, Chloride Level 104, Carbon Dioxide Level 27 CBC/BMP Laboratory Tests 06/22/18 14:36 Red Blood Count 3.96 L, Mean Corpuscular Volume 79.5 L, Mean Corpuscular Hemoglobin 24.7 L, Mean Corpuscular Hemoglobin Concent 31.1 L, Red Cell Distribution Width 18.6 H, Neutrophils (%) (Auto) 53.9, Lymphocytes (%) (Auto) 24.3, Monocytes (%) (Auto) 12.3 H, Eosinophils (%) (Auto) 8.4 H, Basophils (%) (Auto) 0.8, Neutrophils # (Auto) 3.4, Lymphocytes # (Auto) 1.5, Monocytes # (Auto) 0.8, Eosinophils # (Auto) 0.5, Basophils # (Auto) 0.1 06/23/18 05:27 Red Blood Count 4.21 L, Mean Corpuscular Volume 78.6 L, Mean Corpuscular Hemoglobin 24.9 L, Mean Corpuscular Hemoglobin Concent 31.7 L, Red Cell Distribution Width 18.8 H, Neutrophils (%) (Auto) 59.2, Lymphocytes (%) (Auto) 18.3 L, Monocytes (%) (Auto) 13.0 H, Eosinophils (%) (Auto) 8.3 H, Basophils (%) (Auto) 0.9, Neutrophils # (Auto) 4.1, Lymphocytes # (Auto) 1.3 L, Monocytes # (Auto) 0.9 H, Eosinophils # (Auto) 0.6 H, Basophils # (Auto) 0.1, Calcium Level 8.1 L Microbiology Microbiology 06/22/18 Blood Culture, Received Pending 06/22/18 Blood Culture, Received Pending 06/22/18 Respiratory Virus Panel (PCR) ([facility]) - Final, Complete GME ATTESTATION GME ATTESTATION My faculty preceptor for this patient encounter was physically present during the encounter and was fully available. All aspects of the patient interview, examination, medical decision making process, and medical care plan development were reviewed and approved by the faculty preceptor. The faculty preceptor is aware and concurs with the plan as stated in the body of this note and will attest to such by his/her cosignature. NORBERT FIELDS DO Jun 23, 2018 08:11
[2018-06-23] MEDS ORDERED: ENOXAPARIN 40 MG/0.4 ML SYRINGE (J1650) SC SCH (09:00)
[2018-06-23] MEDS ORDERED: PREVNAR 13 VACCINE SYRINGE (CPT CODE:90670) IM ONE (09:00)
[2018-06-23] MEDS ORDERED: HYDR-3719 PO (09:09)
[2018-06-23] MEDS: FLUoxetine 20 MG CAP PO SCH (09:25)
[2018-06-23] MEDS: MULTIVITAMINS/MINERALS THERAP 1 TAB PO SCH (09:25)
[2018-06-23] MEDS: FLUTICASONE PROP 0.05% NASAL SPRAY 16 GM (FLONASE) NARES SCH (09:25)
[2018-06-23] MEDS: APIXABAN 5 MG TAB (ELIQUIS) PO SCH ×2 (09:25→20:58)
[2018-06-23] MEDS: busPIRone 10 MG TAB PO SCH (09:25)
[2018-06-23] MEDS: FINASTERIDE 5 MG TAB PO SCH (09:25)
[2018-06-23] MEDS: POTASSIUM CHLORIDE 10 MEQ SR TABLET PO SCH ×2 (09:25→20:59)
[2018-06-23] MEDS: FAMOTIDINE 20 MG TAB PO SCH ×2 (09:25→20:58)
[2018-06-23] MEDS: FLUDROCORTISONE ACETATE 0.1 MG TAB PO SCH (09:26)
[2018-06-23] MEDS: SENNA 8.6 MG TAB (SENOKOT) PO SCH ×2 (09:26→20:58)
[2018-06-23] MEDS: ROSUVASTATIN 10 MG TAB (CRESTOR) PO SCH (09:26)
[2018-06-23] MEDS: amLODIPine 5 MG TAB PO SCH (09:26)
[2018-06-23] MEDS: TAMSULOSIN 0.4 MG CAP PO SCH (09:26)
[2018-06-23] MEDS: CYANOCOBALAMIN 500 MCG TAB PO SCH (09:26)
[2018-06-23] MEDS: GABAPENTIN 100 MG CAP PO SCH ×3 (09:26→20:58)
[2018-06-23] MEDS: AZITHROMYCIN 250 MG TAB PO SCH (09:27)
[2018-06-23] MEDS: cefTRIAXone SOD 1 GM in D5W MINI-BAG PLUS 50 ML IV SCH (09:30)
[2018-06-23] MEDS: NORCO, ANEXSIA 5/325MG TABLET (HYDROcodone/ACETAMINOPHEN) PO PRN ×2 (09:31→21:03)
[2018-06-23] MEDS ORDERED: POTASSIUM CHLORIDE 10 MEQ SR TABLET PO ONE (10:00)
[2018-06-23] MEDS: HumaLOG INSULIN (NovoLOG) PER UNIT SC SCH ×2 (12:18→17:30)
[2018-06-23 14:00] VITALS: BP 122/64
[2018-06-23] MEDS: rOPINIRole 0.25 MG TAB(REQUIP) PO SCH (20:58)
[2018-06-23] MEDS: ATENOLOL 25 MG TAB PO SCH (20:59)
[2018-06-23] MEDS: VITAMIN D 1,000 INTERNATIONAL UNITS TABLET PO SCH (20:59)
[2018-06-23] MEDS ORDERED: HumaLOG INSULIN (NovoLOG) PER UNIT SC SCH (21:00)
[2018-06-23] MEDS ORDERED: DONEPEZIL 5 MG TAB PO SCH (21:00)
[2018-06-23 22:00] VITALS: BP 160/77
[2018-06-24 06:00] VITALS: BP 156/88
[2018-06-24] MEDS ORDERED: POTASSIUM CHLORIDE 10 MEQ SR TABLET PO ONE (08:00)
[2018-06-24] MEDS ORDERED: CEFD1CAP8 PO (08:05)
[2018-06-24] MEDS ORDERED: AZIT-12 PO (08:05)
[2018-06-24 08:50] LABS: BLOOD UREA NITROGEN 14 MG/DL (7-18); CALCIUM LEVEL 8.7 MG/DL (8.8-10.2); CARBON DIOXIDE LEVEL 26 MEQ/L (21-32); CHLORIDE LEVEL 105 MEQ/L (98-107); GLOMERULAR FILTRATION RATE > 60.0 (>35); GLUCOSE, FASTING 104 MG/DL (70-100); POTASSIUM SERUM 4.2 MEQ/L (3.5-5.1); SODIUM LEVEL 138 MEQ/L (136-145)
[2018-06-24] MEDS: POTASSIUM CHLORIDE 10 MEQ SR TABLET PO SCH (10:01)
[2018-06-24] MEDS: cefTRIAXone SOD 1 GM in D5W MINI-BAG PLUS 50 ML IV SCH (10:01)
[2018-06-24] MEDS: GABAPENTIN 100 MG CAP PO SCH (10:02)
[2018-06-24] MEDS: APIXABAN 5 MG TAB (ELIQUIS) PO SCH (10:02)
[2018-06-24] MEDS: MULTIVITAMINS/MINERALS THERAP 1 TAB PO SCH (10:02)
[2018-06-24] MEDS: ROSUVASTATIN 10 MG TAB (CRESTOR) PO SCH (10:02)
[2018-06-24] MEDS: FLUoxetine 20 MG CAP PO SCH (10:02)
[2018-06-24] MEDS: FAMOTIDINE 20 MG TAB PO SCH (10:02)
[2018-06-24] MEDS: CYANOCOBALAMIN 500 MCG TAB PO SCH (10:02)
[2018-06-24] MEDS: busPIRone 10 MG TAB PO SCH (10:03)
[2018-06-24] MEDS: FLUDROCORTISONE ACETATE 0.1 MG TAB PO SCH (10:03)
[2018-06-24] MEDS: FINASTERIDE 5 MG TAB PO SCH (10:03)
[2018-06-24] MEDS: AZITHROMYCIN 250 MG TAB PO SCH (10:03)
[2018-06-24] MEDS: TAMSULOSIN 0.4 MG CAP PO SCH (10:03)
[2018-06-24] MEDS: SENNA 8.6 MG TAB (SENOKOT) PO SCH (10:04)
[2018-06-24] MEDS: HumaLOG INSULIN (NovoLOG) PER UNIT SC SCH (10:05)
[2018-06-24 10:07] VITALS: BP 155/72
[2018-06-24] MEDS: amLODIPine 5 MG TAB PO SCH (10:07)
[2018-06-24] MEDS: FLUTICASONE PROP 0.05% NASAL SPRAY 16 GM (FLONASE) NARES SCH (10:08)
--- NOTE | 2018-06-24 11:00 | DS.PDOC ---
Discharge Summary General Date of Admission Jun 22, 2018 at 19:11 Date of Discharge 06/24/18 Discharge Summary PCP: Joel Campos MD PROCEDURES PERFORMED DURING STAY: None. ADMITTING DIAGNOSES/DISCHARGE DIAGNOSES: 1. Community acquired pneumonia. 2. Type 2 diabetes. 3. Hypertension. 4. Dyslipidemia. 5. History of coronary artery disease. 6. Paroxysmal atrial fibrillation. COMPLICATIONS/CHIEF COMPLAINT: Pneumonia. HISTORY OF PRESENT ILLNESS/HOSPITAL COURSE: The is 80-th[age] white male with several chronic medical conditions listed below, came to the ER for evaluation of above complaints. History is provided by himself, however, he is a poor historian. Per the patient, the last couple of days he said he has been coughing with whitish sputum and also he developed chest pain which is located in his front chest. The worst pain is about 5/10 and radiated to his both neck and arm. He also has felt cold and chills, but no fever at home. In the ER, he had a chest x-ray as well as CT angiogram of his chest which demonstrated he has some infiltrate in his right lung. Medicine service called for pneumonia for he had a CURB 65 score OF 2-3. While admitted he was started on IV antibiotics and his symptoms improved. There were no complication during his stay and on the day of discharge he was stable to go home. DISCHARGE MEDICATIONS: Please see below. ALLERGIES: Please see below. PHYSICAL EXAMINATION ON DISCHARGE: VITAL SIGNS: Please see below. GENERAL: He is awake, alert, oriented times three. He is not in acute distress. HEENT: Atraumatic. Pupils equal, round and reactive to light. No jaundice. Extraocular muscles intact. Ears, nose, and throat normal. Mouth: Mucous not dry. No JVD, No bruits. LUNGS: Clear to auscultate in the upper lobes. Improved aeration in the lower lobes. No wheezing, no crackles. HEART: S1, S2, regular. No murmur. ABDOMEN: Soft, positive bowel sounds, nontender. LOWER EXTREMITIES: No edema in bilateral lower extremities. SKIN: No rash. NEUROLOGICAL: Nonfocal. LABORATORY DATA: Please see below. IMAGIN06/22/18 CXR - Impression: No acute disease. CTA IMPRESSION: 1. There is no pulmonary embolism. 2. Right upper and lower lobe infiltrates. PROGNOSIS: Fair ACTIVITY: As tolerated DIET: 2 g sodium diet plus low cholesterol +Consistent Carbohydrate DISPOSITION: Home DISCHARGE INSTRUCTIONS: 1. F.U with pcp in 7-10 days. 2. complete antibiotics as proscribed. 3. If symptoms return or worsen please call your pcp or return to the ER. DISCHARGE CONDITION:Stable. TIME SPENT ON DISCHARGE: Greater than 35 minutes. Vital Signs/I&Os Vital Signs Date Time Temp Pulse Resp B/P (MAP) Pulse Ox O2 Delivery O2 Flow Rate FiO2 06/24/18 06:00 98.7 61 20 156/88 (110) 95 Room Air I&O- Last 24 Hours up to 6 AM 06/24/18 06:00 Intake Total 2670 ml Output Total 1425 ml Balance 1245 ml Laboratory Data Labs 24H Laboratory Tests 2 06/23/18 11:33: Bedside Glucose (Misc Panel) 144H 06/23/18 17:08: Bedside Glucose (Misc Panel) 112H 06/23/18 20:52: Bedside Glucose (Misc Panel) 198H 06/24/18 06:26: Bedside Glucose (Misc Panel) 113H FSBS Laboratory Tests Test 06/23/18 11:33 06/23/18 17:08 06/23/18 20:52 06/24/18 06:26 Range/Units Bedside Glucose (Misc Panel) 144 112 198 113 83-110 MG/DL Microbiology Microbiology 06/22/18 Blood Culture - Preliminary, Resulted No growth after 24 hours . All specim... 06/22/18 Blood Culture - Preliminary, Resulted No growth after 24 hours . All specim... 06/22/18 Respiratory Virus Panel (PCR) (LIDIA) - Final, Complete Discharge Medications Scheduled (Icaps Areds 2) 1 Cap Cap, 1 CAP PO BID, (Reported) Amlodipine Besylate (Amlodipine Besylate) 5 Mg Tab, 5 MG PO DAILY, (Reported) Apixaban Base (Eliquis) 5 Mg Tab, 5 MG PO BID, (Reported) Atenolol (Atenolol) 25 Mg Tab, 25 MG PO QHS, (Reported) Azithromycin (Azithromycin) 250 Mg Tab, 250 MG PO DAILY Buspirone HCl (Buspirone HCl) 10 Mg Tab, 10 MG PO DAILY, (Reported) Cefdinir (Cefdinir) 300 Mg Cap, 1 CAP PO BID Cholecalciferol (Vitamin D3) 1,000 Unit Tab, 2,000 UNIT PO QHS, (Reported) Cyanocobalamin (B-12) 500 Mcg Tab, 1,000 MCG PO DAILY, (Reported) Dextran/Hydrox.prop.meth.cell (Tears Naturale PF 0.1-0.3 %) 1 Drop/Bottle Soln, 1 DROP OU QID, (Reported) Donepezil Hcl (Donepezil HCl) 10 Mg Tab, 10 MG PO QHS, (Reported) Finasteride (Finasteride) 5 Mg Tab, 5 MG PO DAILY, (Reported) Fludrocortisone Acetate (Fludrocortisone Acetate) 0.1 Mg Tab, 0.1 MG PO DAILY, (Reported) Fluoxetine Hcl (Fluoxetine HCl) 20 Mg Cap, 60 MG PO DAILY, (Reported) Fluticasone Propionate (Fluticasone Propionate) 50 Mcg/Act Spr, 2 SPRAY NARES DAILY, (Reported) Gabapentin (Neurontin) 100 Mg Cap, 100 MG PO TID, (Reported) Metformin Hydrochloride (Metformin Hydrochloride) 850 Mg Tab, 850 MG PO BID, (Reported) Multivitamins *[facility] STOCK[facility]* (Thera M Plus *[facility] STOCKED*) 1 Tab Tab, 1 TAB PO DAILY, (Reported) Potassium Chloride (K-Tab) 10 Meq Tab, 20 MEQ PO BID, (Reported) Ranitidine HCl (Ranitidine [address]) 150 Mg Tab, 1 TAB PO BID, (Reported) Ropinirole Hydrochloride (Ropinirole HCl) 0.25 Mg Tab, 0.25 MG PO QPM, (Reported) Rosuvastatin Calcium (Rosuvastatin Calcium) 40 Mg Tab, 20 MG PO DAILY, (Reported) Senna (Sennosides) 8.6 Mg Tab, 2 TAB PO BID, (Reported) Tamsulosin Hydrochloride (Flomax) 0.4 Mg Cap, 0.4 MG PO DAILY, (Reported) Scheduled PRN Acetaminophen/Hydrocodone (Hydrocodone/Acetaminophen 10-325 mg) 1 Tab Tab, 1 TAB PO BIDP PRN for PAIN, (Reported) Albuterol/Ipratropium (Combivent Respimat 20-100 Mcg/Act) 1 Aer Aer, 1 PUFF INH QID PRN for SHORTNESS OF BREATH, (Reported) Cetirizine HCl (All Day Allergy) 10 Mg Tab, 10 MG PO DAILY PRN for ALLERGY SYMPTOMS, (Reported) Nitroglycerin (Nitrostat) 0.4 Mg Subl, 0.4 MG SL NITRO PRN for CHEST PAIN, (Reported) Allergies Coded Allergies: No Known Drug Allergy (Verified Allergy, Unknown, 12/29/17) GME ATTESTATION GME ATTESTATION My faculty preceptor for this patient encounter was physically present during the encounter and was fully available. All aspects of the patient interview, examination, medical decision making process, and medical care plan development were reviewed and approved by the faculty preceptor. The faculty preceptor is aware and concurs with the plan as stated in the body of this note and will attest to such by his/her cosignature. NOREBRT FIELDS DO Jun 24, 2018 08:10
== END 2018-06-24 11:14 | disposition home or self-care (01) | DRG 195 ==
LOC: M ED 13:58 → EDBEDREQSVC 18:42 → M ED INP 19:11 → M MSPAV 22:45
PROVIDERS: ADMIT Internal Medicine; ATTEND Internal Medicine
DX: J18.9 Pneumonia, unspecified organism (principal); E11.9 Type 2 diabetes mellitus without complications; I10 Essential (primary) hypertension; E78.5 Hyperlipidemia, unspecified; I25.10 Atherosclerotic heart disease of native coronary artery without angina pectoris; I48.0 Paroxysmal atrial fibrillation; F03.90 Unspecified dementia, unspecified severity, without behavioral disturbance, psychotic disturbance, mood disturbance, and anxiety; F32.9 Major depressive disorder, single episode, unspecified; Z79.01 Long term (current) use of anticoagulants; Z79.899 Other long term (current) drug therapy; Z95.0 Presence of cardiac pacemaker; Z96.641 Presence of right artificial hip joint; Z95.1 Presence of aortocoronary bypass graft

== ENCOUNTER 2019-07-03 15:33 | Inpatient (IN) | payer OTHER, MEDICARE ==
[~2019-07-03] VITALS: Ht 185.4 cm; Wt 78.8 kg
[~2019-07-03 15:33] MED LIST changes: -ALL10TAB28 PO; +ALL10TAB29 PO; -ASPI81CH32 PO; +ASPI81CH33 PO; +AZIT-12 PO; +CEFD1CAP8 PO; +ELIQ5TAB PO; -LORA1SOL PO; +LORA5SOL12 PO; -METF-808 PO; +METF-954 PO; -NORC10TA21 PO; +NORC1TAB5 PO; +RANI-397 PO; -RANI1TAB6 PO; -ROSU40TA3 PO; +ROSU40TA4 PO; -SIMV40TA2 PO; +SIMV40TA20 PO; +VITA-183 PO; -VITA1CAP2 PO
[2019-07-03 16:19] LABS: BASO # 0.1 10^3/uL (0.0-0.2); BASO % 0.8 % (0.0-1.0); EOS # 0.6 10^3/uL (0.0-0.5); HEMATOCRIT 41.2 % (42.0-52.0); HEMOGLOBIN 13.3 g/dl (13.5-17.5); LYMPH # 1.2 10^3/uL (1.5-5.0); LYMPH % 16.5 % (24.0-44.0); MEAN CORPUSCULAR HEMOGLOBIN 30.6 pg (27.0-33.0); MEAN CORPUSCULAR HGB CONC 32.3 g/dl (32.0-36.5); MEAN CORPUSCULAR VOLUME 94.7 fl (80.0-96.0); MONO # 0.8 10^3/uL (0.0-0.8); MONO % 11.2 % (0.0-5.0); NEUTROPHILS # 4.6 10^3/uL (1.5-8.5); NEUTROPHILS % 62.7 % (36.0-66.0); PLATELET COUNT, AUTOMATED 222 10^3/uL (150-450); RED BLOOD COUNT 4.35 10^6/uL (4.30-6.10); WHITE BLOOD COUNT 7.4 10^3/uL (4.0-10.0)
[2019-07-03 16:45] LABS: ALT/SGPT 20 U/L (12-78); BLOOD UREA NITROGEN 13 MG/DL (7-18); CALCIUM LEVEL 8.9 MG/DL (8.8-10.2); CARBON DIOXIDE LEVEL 30 MEQ/L (21-32); CHLORIDE LEVEL 104 MEQ/L (98-107); CK-MB VALUE MASS 1.5 NG/ML (<3.6); CPK CREATINE PHOSPHOKINASE 62 U/L (39-308); GLOMERULAR FILTRATION RATE > 60.0 (>35); GLUCOSE, FASTING 139 MG/DL (70-100); MB/CK RELATIVE INDEX 2.42 (< OR =4); POTASSIUM SERUM 3.8 MEQ/L (3.5-5.1); SODIUM LEVEL 140 MEQ/L (136-145)
[2019-07-03 16:46] LABS: ALBUMIN 3.5 GM/DL (3.2-5.2); BILIRUBIN,DIRECT 0.1 MG/DL (0.0-0.2); BILIRUBIN,TOTAL 0.3 MG/DL (0.2-1.0); TOTAL PROTEIN 6.7 GM/DL (6.4-8.2); TROPONIN I < 0.02 NG/ML (< 0.10)
[2019-07-03] MEDS ORDERED: ICAP1CAP PO (17:04)
[2019-07-03] MEDS ORDERED: ACET-907 PO (17:04)
[2019-07-03] MEDS ORDERED: VITA-172 PO (17:04)
[2019-07-03] MEDS ORDERED: AKWA1OIN OU (17:04)
[2019-07-03] MEDS ORDERED: FERR325T16 PO (17:04)
[2019-07-03] MEDS ORDERED: ROPI0.5T32 PO (17:04)
[2019-07-03] MEDS ORDERED: ARTIDRO2 OU (17:04)
[2019-07-03] MEDS ORDERED: RA S8.6T3 PO (17:04)
[2019-07-03] MEDS ORDERED: ENSULIQ9 PO (17:04)
[2019-07-03] MEDS ORDERED: MIRA3350 PO (17:04)
[2019-07-03] MEDS ORDERED: DULO60CA35 PO (17:04)
[2019-07-03] MEDS ORDERED: HYDR-3713 PO (17:04)
[2019-07-03] MEDS ORDERED: AMLO10TA5 PO (17:04)
[2019-07-03] MEDS ORDERED: AMMO12CR7 TOP (17:04)
[2019-07-03] MEDS ORDERED: VITA100054 PO (17:04)
--- NOTE | 2019-07-03 17:11 | REP ---
Portable chest, 04:56 p.m., single AP view with the patient upright: Comparison is 06/19, 12/31/2018. There is an infiltrate in the right upper lobe. Lung garrido otherwise clear. Cardiac size normal. The wil, mediastinum, skeletal structures are unremarkable except for orthopedic anchor screws in the right humeral head. There is a triple lead pacemaker, unchanged. Impression: Right upper lobe infiltrate. Electronically Signed by Gonsalo Hinojosa MD 07/03/2019 05:02 P
[2019-07-03 17:14] LABS: INR 1.2; PROTHROMBIN TIME 14.9 SECONDS (11.8-14.0)
[2019-07-03 17:15] LABS: PARTIAL THROMBOPLASTIN TIME 45.8 SECONDS (25.0-38.4)
[2019-07-03] MEDS ORDERED: cefTRIAXone SOD 1 GM in D5W MINI-BAG PLUS 50 ML IV ONE (17:15)
[2019-07-03] MEDS ORDERED: AZITHROMYCIN INJ 500 MG, VIAL MATE ADAPTER 1 EACH in D5W 250 ML IV ONE (17:15)
[2019-07-03] MEDS ORDERED: NITROGLYCERIN 0.4 MG SUBL TABLET SL PRN (17:30)
[2019-07-03] MEDS ORDERED: CETIRIZINE (ZyrTEC) 10 MG TAB PO PRN (17:30)
[2019-07-03] MEDS ORDERED: ACETAMINOPHEN TAB 650MG DOSE (2X325MG) PO PRN (17:30)
[2019-07-03] MEDS ORDERED: LACTIC ACID 12% LOTION 225 GM BTL TOP PRN (17:30)
[2019-07-03] MEDS ORDERED: MIRALAX *UNIT DOSE* 17GM PACKET PO PRN (17:30)
[2019-07-03] MEDS ORDERED: IPRATROPIUM 0.5MG/ALBUTEROL 2.5MG INH SOL UD 3ML (DUONEB)(J7620) INH PRN (17:30)
[2019-07-03] MEDS ORDERED: SENNA 8.6 MG TAB (SENOKOT) PO PRN (17:30)
[2019-07-03] MEDS ORDERED: FLUTICASONE PROP 0.05% NASAL SPRAY 16 GM (FLONASE) NARES PRN (17:30)
[2019-07-03] MEDS ORDERED: POLYVINYL ALCOHOL OPHTH SOLN 15 ML(LIQUITEARS) OU PRN (17:30)
--- NOTE | 2019-07-03 17:30 | REP ---
CT brain without contrast: History: CVA. Comparison CT brain study November 22, 2017. CT findings: Preliminary digital supervisor finishing radiograph is unremarkable. Bone window settings demonstrate an intact bony calvarium. There is vascular calcification in the carotid siphons bilaterally and in the distal vertebral arteries. Visualized paranasal sinuses are clear. No intraorbital abnormalities appreciated. On soft tissue window settings, there is physiologic calcification of the basal ganglia bilaterally. Moderate generalized atrophy is present unchanged. There are moderate and periventricular white matter low density changes consistent with small vessel atherosclerotic disease. There is no change in these findings when compared with the prior study from November 22, 2017. There is no evidence of intracranial hemorrhage. No acute infarction is seen. No mass, extra-axial fluid collection, or midline shift is observed. Impression: Generalized atrophy and small vessel changes. Vascular calcification. No acute intracranial abnormality seen. Electronically Signed by Tushar Mckeon MD 07/03/2019 06:11 P
[2019-07-03] MEDS ORDERED: ISOVUE-370 76% 100ML VIAL (Q9967) As Ordered ONE (17:34)
--- NOTE | 2019-07-03 18:13 | REPVR ---
PROCEDURE INFORMATION: Exam: CT Angiography Neck With Contrast Exam date and time: 07/03/2019 5:23 PM Age: 84 years old Clinical indication: Weakness and other: Facial droop; Additional info: Facial droop weakness TECHNIQUE: Imaging protocol: Computed tomography angiography of the neck with intravenous contrast. 3D rendering: MIP and/or 3D reconstructed images were created by the technologist. Radiation optimization: All CT scans at this facility use at least one of these dose optimization techniques: automated exposure control; mA and/or kV adjustment per patient size (includes targeted exams where dose is matched to clinical indication); or iterative reconstruction. Contrast material: ISOVUE 370; Contrast volume: 100 ml; Contrast route: IV; COMPARISON: No relevant prior studies available. FINDINGS: VASCULATURE: Right common carotid artery: No significant stenosis. No dissection or occlusion. Right internal carotid artery: Atherosclerotic plaques involving the proximal extracranial right internal carotid artery without evidence of hemodynamically significant stenosis (0% stenosis by NASCET criteria). Right external carotid artery: No occlusion or significant stenosis. Right vertebral artery: No significant stenosis. No dissection or occlusion. Left common carotid artery: Mild stenosis of the mid left common carotid artery. Left internal carotid artery: Atherosclerotic plaques involving the proximal extracranial left internal carotid artery without evidence of hemodynamically significant stenosis (0% stenosis by NASCET criteria). Left external carotid artery: No occlusion or significant stenosis. Left vertebral artery: No significant stenosis. No dissection or occlusion. NECK: Bones/joints: Degenerative changes of the cervical spine. No acute fracture. Soft tissues: Unremarkable. IMPRESSION: 1. No occlusion or significant stenosis in the arteries of the neck. 2. Other chronic findings, as above. COMMENT: Reference per NASCET criteria for degree of stenosis: Mild: less than 50% stenosis. Moderate: 50-69% stenosis. Severe: 70-94% stenosis. Near occlusion: 95-99% stenosis. Electronically signed by: Bill Colin On 07/03/2019 18:12:34 PM
--- NOTE | 2019-07-03 18:16 | REPVR ---
PROCEDURE INFORMATION: Exam: CT Angiography Head With Contrast Exam date and time: 07/03/2019 5:21 PM Age: 84 years old Clinical indication: Weakness and other: Facial droop; Additional info: Facial droop R/O CVA TECHNIQUE: Imaging protocol: Computed tomography angiography of the head with intravenous contrast. 3D rendering: MIP and/or 3D reconstructed images were created by the technologist. Radiation optimization: All CT scans at this facility use at least one of these dose optimization techniques: automated exposure control; mA and/or kV adjustment per patient size (includes targeted exams where dose is matched to clinical indication); or iterative reconstruction. Contrast material: ISOVUE 370; Contrast volume: 100 ml; Contrast route: IV; COMPARISON: CT Head without contrast 07/03/2019 4:09 PM FINDINGS: Right internal carotid artery: Calcific atherosclerotic changes of the intracranial right internal carotid artery without evidence of hemodynamically significant stenosis. Right anterior cerebral artery: No occlusion or significant stenosis. No aneurysm. Right middle cerebral artery: Short segment mild to moderate stenosis of the origin of an anterior inferior right M2 division. Right MCA branches are otherwise patent. Right posterior cerebral artery: No occlusion or significant stenosis. No aneurysm. Right vertebral artery: No occlusion or significant stenosis. No aneurysm. Left internal carotid artery: Calcific atherosclerotic changes of the intracranial left internal carotid artery without evidence of hemodynamically significant stenosis. Left anterior cerebral artery: No occlusion or significant stenosis. No aneurysm. Left middle cerebral artery: No occlusion or significant stenosis. No aneurysm. Left posterior cerebral artery: No occlusion or significant stenosis. No aneurysm. Left vertebral artery: No occlusion or significant stenosis. No aneurysm. Basilar artery: No occlusion or significant stenosis. No aneurysm. IMPRESSION: 1. No intracranial arterial occlusion or severe stenosis. 2. Short segment mild to moderate stenosis of the origin of an anterior inferior right M2 division. Electronically signed by: Bill Colin On 07/03/2019 18:16:09 PM
--- NOTE | 2019-07-03 19:18 | ECGEPIP ---
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
[2019-07-03] MEDS: LACTOBACILLUS ACIDOPHILUS CAP (BACID) PO SCH ×2 (20:29→23:41)
[2019-07-03] MEDS: POTASSIUM CHLORIDE 10 MEQ SR TABLET PO SCH (20:30)
[2019-07-03] MEDS: APIXABAN 5 MG TAB (ELIQUIS) PO SCH (20:30)
--- NOTE | 2019-07-03 20:34 | HPE ---
DATE OF ADMISSION: 07/03/2019 PRIMARY CARE PHYSICIAN: [facility] in [place], [place] CHIEF COMPLAINT: Left-sided weakness, facial droop noticed by family around 1:00 to 1:25 p.m. HISTORY OF PRESENTING ILLNESS: This is an 84-year-old male with a history of sick sinus syndrome with atrial fibrillation (a fib) and symptomatic bradycardia, status post pacemaker placement, coronary artery disease, coronary artery bypass graft (CABG), history of gastrointestinal (GI) bleed, diabetes, hypertension, restless legs, hyperlipidemia, remote history of nephrolithiasis, presented to the emergency room with a several day history of decreased appetite, on and off dizziness from time to time, worse when he gets up immediately, with a nonproductive cough without fever but with chills and increasing shortness of breath. The patient was found to be normal this morning at 9:00 a.m. when he had some breakfast. Around 1:00 to 1:25 p.m. when the daughter came home, she noticed a slight facial droop on the right side, which resolved on arrival to the emergency room around 1:30. CT of the head was negative. Per the daughter, patient is compliant with his medications that he takes for atrial fibrillation and is on chronic Eliquis 5 mg twice a day. No bleeding noted on CT of the head. CT angio of the head NO ACUTE CVA_ since the MRI could not be performed due to pacemaker, was also negative for acute stroke. CTA of the neck was negative for severe stenosis. The patient was found to have a right upper lobe infiltrate on chest x-ray, given intravenous ceftriaxone and azithromycin by the emergency room. He did not have a documented fever and no white count. Hospitalist was called to admit for acute encephalopathy secondary to pneumonia, questionable facial droop at home which resolved in the hospital and confusion that has been going on for a few days. According to the daughter, who is providing most of the history, patient was incoherent. He was also complaining of feeling very tired and has been grabbing on to furniture as he walks along with his walker. He had one fall that he told his [place] nurse about, but has been okay since without any head trauma. According to the daughter, the patient does get dizzy at times. He does have a tube in the right ear and sees an Ear, Nose and Throat surgeon and complains of some nasal congestion and increasing serous drainage. No fever or any pain in the right ear. The patient had trouble getting up today and felt very dizzy and sleepy, wanted to lie down most of the day with decreased appetite for the past one week, according to the daughter, but has had no decrease in weight. Patient says, "I'll be fine" once he starts going to sleep. Today, the patient was noted to be gasping for air as he walked from his bedroom to the bathroom. He was laying on the couch most of the day. He was exposed to his who was treated for sinus infection a week ago with antibiotics. Patient otherwise denies any chest pain, pressure, tightness, palpitations, lightheadedness. He denies any nausea, vomiting, epigastric pain. Denies bright red blood per rectum, melena, or black tarry stools. Hospitalist was called to admit for community-acquired pneumonia in the right upper lobe. PAST MEDICAL HISTORY: Coronary artery disease, CABG, pneumonia, symptomatic bradycardia, atrial fibrillation, status post pacer placement, history of GI bleed, on chronic Eliquis for ?Afib, depression, type 2 diabetes, hyperlipidemia, hypertension, nephrolithiasis. PAST SURGICAL HISTORY: Pacemaker approximately 2010, right hip arthroplasty, right shoulder surgery, multiple hernia repairs, umbilical hernia about 7-8, most recent in 2016, right shoulder surgery, shrapnel in the left flank in 1950s in the [place]. FAMILY HISTORY: Father of coronary artery disease, myocardial infarction ([place]) at the age of 62. Brother of sudden age 62, unknown cause. Mother had a brain tumor. SOCIAL HISTORY: The patient lives at home with his . Two supportive daughters, one is a retired RN. Patient is a previous smoker, quit many years ago. No alcohol abuse. No history of drug abuse. He is a FULL CODE. ALLERGIES: No known drug allergies. HOME MEDICATIONS: - metformin 850 mg twice a day - donepezil 10 mg daily - duloxetine 60 mg daily - Ensure Plus one liquid by mouth twice a day - ropinirole 0.5 mg nightly - Icaps Areds one capsule by mouth twice a day - acetaminophen 650 mg four times a day as needed - Norvasc 5 mg daily - ammonium lactate topically twice a day for dry skin - Eliquis 5 mg twice a day - atenolol 25 mg daily - cetirizine 10 mg as needed - vitamin D3 1000 units nightly - B12 1000 mcg daily - ferrous gluconate 324 mg twice a day - finasteride 5 mg daily - fludrocortisone 0.1 mg by mouth daily - fluticasone two sprays nares daily as needed for allergies - hydrocodone-acetaminophen one tablet four times a day as needed - Combivent Respimat one puff four times a day as needed for shortness of breath. - artificial tears ointment 3.5 ointment one dose both eyes (OU) nightly - multivitamin one tablet daily - nitroglycerin 0.4 mg as needed every 5 minutes for chest pain - MiraLAX 17 grams three times a day as needed - artificial tears 15 mL one drop both eyes four times a day as needed - potassium 20 mEq twice a day - rosuvastatin 20 mg nightly - Senokot 8.6 mg by mouth three times a day as needed - Flomax 0.4 mg nightly REVIEW OF SYSTEMS: Per history of the present illness. Twelve-point system otherwise negative. PHYSICAL EXAMINATION: Temperature 98.1, pulse 64, respiratory rate 22, blood pressure 158/51, 96% on room air. Generally, patient is disoriented to time and states that it is 9. He says that he is at the [facility], says that it is wintertime. He is able to state his full name. The patient answers questions appropriately, very hard of hearing. No jugular venous distention (JVD), thyromegaly. Pupils are round and reactive, following commands. Face is symmetric. No residual facial drooping. Tongue is midline. No tongue fasciculations. No horizontal or vertical nystagmus. Extraocular muscles are intact. No pronator drift. Patient has motor function of 4/5 bilateral lower extremities, which the patient's daughter says is chronic. He has decreased sensation lower extremities, which she also says is chronic. Patient's penology teacher is 5/5 times two upper extremities. Gait was not tested. His speech is fluent. Lungs are clear to auscultation with fine crackles at the right upper lobe. Air entry is diminished in the right upper lobe, otherwise no wheezing or rales. Heart: S1, S2, sinus. Pacer noted left anterior chest. Abdomen is soft, nontender, nondistended. Extremities have no pitting edema, no cyanosis and no clubbing. LABORATORY DATA: White count 7.4, hemoglobin 13, hematocrit 41, platelet count 222. Sodium 140, potassium 3.8, chloride 104, bicarbonate 30, BUN 13, creatinine 0.7, glucose 139, calcium 8.9, total bilirubin 0.3, direct bilirubin 0.1, AST 13, ALT 20, alkaline phosphatase 54, total CK 62, MB fraction 1.5, troponin less than 0.02, total protein 6.7, albumin 3.5. TSH 1.92 in May 2018. Respiratory panel 07/03/2019 is negative. Chest x-ray: No acute disease. CT angio 06/22/2018: Right upper and lower lobe infiltrates. CT of the head 07/03/2019: Generalized atrophy, small vessel disease, vascular calcification. No acute intracranial abnormality. CT angio of the head and neck: No severe stenosis of the neck vessels. CTA shows no intracranial arterial occlusion or severe stenosis on the head. ASSESSMENT AND PLAN: This is an 84-year-old male with a history of pacer, symptomatic bradycardia, questionable paroxysmal atrial fibrillation, on chronic Eliquis, coronary artery disease, CABG, depression, dementia, type 2 diabetes, hypertension and dyslipidemia. Lives at home with his . Presents to the emergency room with several day history of increasing weakness, especially on the left side, as well as shortness of breath noted today. He complained of dizziness on and off from time to time. He has a dry cough and was found to have right upper and lower lobe infiltrate on CT of the chest, admitted for community-acquired pneumonia with some worsening disorientation. The patient initially was thought to have had a facial droop. CTA of the head, however, was negative and there was no facial drooping or focal neurologic findings on arrival to the emergency room. IMPRESSION: Acute metabolic encephalopathy, most likely secondary to pneumonia in the right upper and lower lobes. Patient will be treated for pneumonia with IV ceftriaxone and azithromycin 250 mg daily for 5 days and 7 days of IV ceftriaxone. Obtain urine Legionella, strep pneumonia antigen, obtain blood culture, sputum culture, if possible; however, the patient says that he has had a dry cough. UA is unremarkable. CT of the head shows no acute CVA. Facial drooping has resolved. ARU has been consulted. Community Acquired pneumonia in the right upper and lower lobes. Patient will be treated for pneumonia with IV ceftriaxone and azithromycin 250 mg daily for 5 days and 7 days of IV ceftriaxone obtain blood culture,urine strep ag, urine legionella ag, respiratory panel, mrsa pcr screen, sputum culture, if possible; however, the patient says that he has had a dry cough History of symptomatic bradycardia and questionable atrial fibrillation, on chronic Eliquis. Patient is compliant. INR is 1.2. CT angio of the head and neck have no significant stenosis, no intracranial occlusion noted, no CVA. At this time, the patient's dizziness is attributed to possible orthostasis chronic Florinef. He is also on Flomax, which could cause orthostatic hypotension. Therefore, we are obtaining orthostatics on arrival. Hypertension, uncontrolled. Patient may be resumed on his home medications of Norvasc and atenolol. May need to hold the Florinef if blood pressure remains uncontrolled. BPH. On Flomax, which can cause orthostasis. Monitor on this. Assisted ambulation only. Vitamin D deficiency contributing to patient's gait imbalance. Continue with supplementation 1000 units nightly. Chronic anemia. On Fergon 324 mg twice a day and bowel regimen to prevent constipation. B12 deficiency. Most likely contributing to his unsteady gait. Continue with supplementation. Dry eyes. Continue with ointment and artificial tears. Chronic pain and restless legs with chronic neuropathy. Continue home pain medications. DISPOSITION: Pending clinical improvement, 2-3 days, ARU screen. MTDD
[2019-07-03] MEDS: NORCO, ANEXSIA 5/325MG TABLET (HYDROcodone/ACETAMINOPHEN) PO PRN ×2 (20:35→21:32)
[2019-07-03] MEDS ORDERED: VITAMIN D 1,000 INTERNATIONAL UNITS TABLET PO SCH (21:00)
[2019-07-03] MEDS ORDERED: TAMSULOSIN 0.4 MG CAP PO SCH (21:00)
[2019-07-03] MEDS ORDERED: ROSUVASTATIN 10 MG TAB (CRESTOR) PO SCH (21:00)
[2019-07-03] MEDS ORDERED: LACRILUBE (AKWA TEARS) OPHTH OINT 3.5 GM OU SCH (21:00)
[2019-07-03 21:25] VITALS: BP 153/75
[2019-07-03] MEDS: FERROUS GLUCONATE 324 MG TAB PO SCH (23:41)
[2019-07-04 00:23] LABS: CK-MB VALUE MASS 1.5 NG/ML (<3.6); CPK CREATINE PHOSPHOKINASE 81 U/L (39-308); MB/CK RELATIVE INDEX 1.85 (< OR =4); TROPONIN I < 0.02 NG/ML (< 0.10)
[2019-07-04] MEDS: NORCO, ANEXSIA 5/325MG TABLET (HYDROcodone/ACETAMINOPHEN) PO PRN ×2 (03:18→11:01)
[2019-07-04 05:57] VITALS: BP_SYST 134; BP_SYST 142; BP_SYST 154; BP_DIAS 70; BP_DIAS 76; BP_DIAS 78
[2019-07-04 06:00] VITALS: BP 153/76
--- NOTE | 2019-07-04 08:20 | REP ---
Bilateral carotid artery duplex ultrasound: Peak flow velocity analysis: RIGHT LEFT ICA Peak flow velocity cm/sec the 87.5 cm/sec 569.7 cm/sec ICA Diastolic flow velocity cm/sec 16.5 cm/sec 12 point see cm/sec ICA/CCA Ratio 1.2 cm/sec 0.6 cm/sec ECA Peak flow velocity cm/sec 97.9 cm/sec 103 cm/sec CCA Peak flow velocity cm/sec 73.3 cm/sec 109. cm/sec There is mild atheromatous plaque in the common carotid artery extending into the bulb on the right. There is moderate atheromatous plaque in the common carotid artery extending into the bulb on the left. The peak flow velocities are normal. There is no stenosis on the right or the left. There is antegrade flow in the vertebral arteries bilaterally. Electronically Signed by Gonsalo Hinojosa MD 07/04/2019 08:11 A
[2019-07-04 08:51] VITALS: BP 161/79
[2019-07-04] MEDS: FERROUS GLUCONATE 324 MG TAB PO SCH (08:51)
[2019-07-04] MEDS: APIXABAN 5 MG TAB (ELIQUIS) PO SCH (08:51)
[2019-07-04] MEDS: POTASSIUM CHLORIDE 10 MEQ SR TABLET PO SCH (08:52)
[2019-07-04] MEDS: LACTOBACILLUS ACIDOPHILUS CAP (BACID) PO SCH ×2 (08:52→13:11)
[2019-07-04] MEDS ORDERED: atenoloL 25 MG TAB PO SCH (09:00)
[2019-07-04] MEDS ORDERED: amLODIPine 5 MG TAB PO SCH (09:00)
[2019-07-04] MEDS ORDERED: FINASTERIDE 5 MG TAB PO SCH (09:00)
[2019-07-04] MEDS ORDERED: FLUDROCORTISONE ACETATE 0.1 MG TAB PO SCH (09:00)
[2019-07-04] MEDS ORDERED: cefTRIAXone SOD 2 GM in D5W MINI-BAG PLUS 50 ML IV SCH (09:00)
[2019-07-04] MEDS ORDERED: AZITHROMYCIN 250 MG TAB PO SCH (09:00)
[2019-07-04] MEDS ORDERED: CYANOCOBALAMIN 500 MCG TAB PO SCH (09:00)
[2019-07-04] MEDS ORDERED: MULTIVITAMINS/MINERALS THERAP 1 TAB PO SCH (09:00)
[2019-07-04 09:15] LABS: BASO # 0.1 10^3/uL (0.0-0.2); EOS # 0.5 10^3/uL (0.0-0.5); EOS % 7.6 % (0.0-3.0); HEMATOCRIT 38.9 % (42.0-52.0); HEMOGLOBIN 12.9 g/dl (13.5-17.5); LYMPH # 1.1 10^3/uL (1.5-5.0); LYMPH % 16.1 % (24.0-44.0); MEAN CORPUSCULAR HEMOGLOBIN 31.3 pg (27.0-33.0); MEAN CORPUSCULAR HGB CONC 33.2 g/dl (32.0-36.5); MEAN CORPUSCULAR VOLUME 94.4 fl (80.0-96.0); MONO # 0.6 10^3/uL (0.0-0.8); MONO % 8.9 % (0.0-5.0); NEUTROPHILS # 4.7 10^3/uL (1.5-8.5); PLATELET COUNT, AUTOMATED 212 10^3/uL (150-450); RED BLOOD COUNT 4.12 10^6/uL (4.30-6.10); WHITE BLOOD COUNT 7.1 10^3/uL (4.0-10.0)
[2019-07-04 09:53] LABS: BLOOD UREA NITROGEN 13 MG/DL (7-18); CALCIUM LEVEL 8.8 MG/DL (8.8-10.2); CARBON DIOXIDE LEVEL 29 MEQ/L (21-32); CHLORIDE LEVEL 103 MEQ/L (98-107); CK-MB VALUE MASS 1.3 NG/ML (<3.6); CPK CREATINE PHOSPHOKINASE 66 U/L (39-308); CREATININE FOR GFR 0.73 MG/DL (0.70-1.30); GLOMERULAR FILTRATION RATE > 60.0 (>35); GLUCOSE, FASTING 260 MG/DL (70-100); MB/CK RELATIVE INDEX 1.97 (< OR =4); SODIUM LEVEL 139 MEQ/L (136-145); TROPONIN I 0.02 NG/ML (< 0.10)
[2019-07-04 10:00] VITALS: BP 168/68
[2019-07-04] MEDS ORDERED: CEFD300CAP PO (11:16)
[2019-07-04] MEDS ORDERED: AZIT-12 PO ×2 (11:16→14:53)
--- NOTE | 2019-07-04 12:05 | DSES ---
DATE OF ADMISSION: 07/03/2019 DATE OF DISCHARGE: PRIMARY DISCHARGE DIAGNOSES: 1. Right upper and lower lobe community acquired pneumonia. 2. Gait imbalance. 3. Chronic vertigo. 4. Atrial fibrillation with sick sinus syndrome and symptomatic bradycardia status post pacer placement. 5. Coronary artery disease (CAD), coronary artery bypass graft (CABG). 6. History of gastrointestinal (GI) bleed. 7. Diabetes. 8. Hypertension. 9.. Hypertension. 10. Restless legs. 11. Diabetic neuropathy. 12. Anemia of chronic disease. 13. Benign prostatic hypertrophy. 14. 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 15. Dyslipidemia. DISCHARGE MEDICATIONS: - cefdinir 300 mg twice a day - azithromycin 250 mg daily - acetaminophen 650 four times a day as needed - Norvasc 5 mg daily - ammonium lactate topically twice a day as needed for dry skin - Eliquis 5 mg twice a day - atenolol 25 mg daily - cetirizine 10 mg as needed - vitamin D 3000 units nightly - B12 1000 mcg daily - donepezil 10 mg daily - duloxetine 60 mg daily - ferrous gluconate 324 twice a day - finasteride 5 mg daily - fluticasone two sprays nares daily as needed - hydrocodone/ acetaminophen one tablet four times a day as needed - Combivent inhaled four times a day as needed - Ensure + 1 liquid twice a day - artifical tear ointment one dose OU nightly. - multivitamin one tablet daily - nitroglycerine 0.4 sublingually as needed for chest pain. - MiraLAX 17 gm three times a day as needed - artifical tears one drop OU four times a day as needed for dry eyes. - potassium chloride 20 mEq twice a day - ropinirole 0.5 nightly - rosuvastatin 20 mg nightly - Senokot 8.6 mg three times a day as needed - FloMag 0.4 nightly - ICaps one capsule twice a day HOSPITAL COURSE: This is an 84-year-old male who lives at home with his usually walks with a walker but for the past week has been increasingly weak, holding onto furniture as he gets around. He has also been noted to have increasing shortness of breath and a dry cough without documented fever but with some chills. Patient has been exposed to his who was treated for sinus infection about a week ago. Per the daughter, who checks up on him and his three times a day, patient had breakfast at 9:00 a.m. and looked normal. Then at noontime, when the daughter came, patient was complaining of feeling very sleepy and wanting to go back to bed and sleep some more. He was noted to have gait instability, and what the daughter thought, was a facial droop. Due to history of atrial fibrillation, patient had been on Eliquis before. Pacemaker placed for sick sinus syndrome and had been compliant with is Eliquis. Family brought him in due to concerns of a stroke. CT of the head was negative. CTA of the head and neck were negative for acute cerebrovascular accident (CVA). No significant stenosis of the vessels in the neck. Patient was found to have a community acquired pneumonia and was started on IV ceftriaxone and azithromycin. He did not have a fever on admission and had a normal white count. Blood cultures were obtained, still pending. Respiratory panel was negative. Patient was 96% on room air. Had significant improvement overnight with antibiotics and transitioned over to cefdinir and azithromycin. EKG was unremarkable. Patient was accepted by acute rehabilitation unit to continue antibiotics and physical therapy. PHYSICAL EXAMINATION: On discharge Temperature 97.8, pulse 66, respiratory rate 18, blood pressure 168/68, 96% on room air. Patient is awake, alert, oriented answering questions appropriately. He is able to speak in full sentences. No conversational dyspnea. No cyanosis. Trachea is midline. No jugular venous distention (JVD), thyromegaly, or cervical lymphadenopathy. Lungs diminished on the right with some crackles. Heart: S1, S2. Sinus rhythm.. Abdomen is soft, nontender, nondistended. Positive bowel sounds. Extremities: Trace edema. LABORATORY DATA: White count 7.1, hemoglobin 12, hematocrit 38, platelet count 212. Sodium 139, potassium 4, chloride 102, bicarbonate 29, BUN 13, creatinine 0.73, glucose 260, calcium 8.8. Troponin 0.02, total CK 66, MB fraction 1.3. Microbiology: Respiratory pane negative. Blood cultures pending. Chest x-ray 07/03/2019: Left lung is clear. Infiltrate on the right upper lobe. Triple-lead pacemaker. CTA of the head: No acute CVA. No intracranial, arterial occlusion or severe stenosis. Short segment mild to moderate stenosis of the origin of an anterior/inferior right M2 division. CTA of the neck: No occlusion or significant stenosis small arteries of the neck. Other chronic findings. Vascular ultrasound: Mild atheromatous plaque in the common carotid extending into the bowel on the right. Moderate atheromatous plaque in the common carotid extending into the bulb on the left. No stenosis on the right or left. Antegrade flow in the vertebral arteries bilaterally. Time spent on discharge 30 minutes. MTDD
[2019-07-04 14:15] VITALS: BP 125/68
[2019-07-04] MEDS ORDERED: CEFD1CAP8 PO (14:53)
== END 2019-07-04 15:50 | disposition home health service (06) | DRG 193 ==
LOC: EDBD 15:33 → M ED 15:33 → M ED INP 17:21 → ENRESERV 20:48 → M MSPAV 21:25
PROVIDERS: ADMIT General Practice; ATTEND General Practice
DX: J18.9 Pneumonia, unspecified organism (principal); G93.41 Metabolic encephalopathy; I49.5 Sick sinus syndrome; I25.10 Atherosclerotic heart disease of native coronary artery without angina pectoris; E11.40 Type 2 diabetes mellitus with diabetic neuropathy, unspecified; I10 Essential (primary) hypertension; D63.8 Anemia in other chronic diseases classified elsewhere; G25.81 Restless legs syndrome; E53.8 Deficiency of other specified B group vitamins; R26.81 Unsteadiness on feet; R42 Dizziness and giddiness; I48.91 Unspecified atrial fibrillation; I95.89 Other hypotension; H04.123 Dry eye syndrome of bilateral lacrimal glands; N40.0 Benign prostatic hyperplasia without lower urinary tract symptoms; E78.5 Hyperlipidemia, unspecified; H91.93 Unspecified hearing loss, bilateral; Z87.442 Personal history of urinary calculi; Z95.1 Presence of aortocoronary bypass graft; Z95.0 Presence of cardiac pacemaker; Z79.01 Long term (current) use of anticoagulants; Z96.641 Presence of right artificial hip joint; Z87.891 Personal history of nicotine dependence; Z79.84 Long term (current) use of oral hypoglycemic drugs; Z79.891 Long term (current) use of opiate analgesic; Z79.899 Other long term (current) drug therapy

== ENCOUNTER 2019-10-19 10:40 | Emergency (ER) | payer MEDICARE ==
[~2019-10-19] VITALS: Ht 182.9 cm; Wt 79.5 kg
[~2019-10-19 10:40] MED LIST changes: +ACET-907 PO; +AKWA1OIN OU; +AMLO10TA5 PO; +AMMO12CR7 TOP; +CEFD300CAP PO; +DULO60CA35 PO; +ENSULIQ9 PO; +FERR325T16 PO; -FLUO20CA19 PO; +FLUO20CA22 PO; +MIRA3350 PO; +POLYOPD OU; +RA S8.6T3 PO; +ROPI0.5T32 PO; +VITA-172 PO; +VITA100054 PO
[2019-10-19] MEDS ORDERED: ALFU10TA3 PO (11:14)
[2019-10-19] MEDS ORDERED: DICL1GEL3 TOP (11:14)
[2019-10-19] MEDS ORDERED: DULO1CAP6 PO (11:14)
[2019-10-19] MEDS ORDERED: METF500T13 PO (11:14)
[2019-10-19 13:22] VITALS: BP 148/88
--- NOTE | 2019-10-19 13:45 | REP ---
There is grade 3 Superior endplate compression deformity involving L1. There is no plain radiographic evidence of a retropulsed fragment. There is chronic degenerative disc space narrowing seen at every level with anterior lipping. Vertebral body alignment is within normal limits. Pedicles are intact bilaterally. There is no evidence of spondylolysis or spondylolisthesis. Degenerative facet joint changes are present at every level bilaterally, particularly of L4-5 and L5-S1. IMPRESSION: There is a grade 3 superior endplate compression fracture involving L1. There are no prior plain film examinations for comparison, however, review of an abdomen and pelvis CT, which was obtained 01/05/2018 did show the same type of fracture involving L1 described above. Acute injury upon chronic change cannot be ruled out by this plain film exam. If clinically relevant consider MRI for further evaluation. Other findings and chronic changes as described above. Electronically Signed by Jama Rodriguez DO 10/19/2019 04:49 P
--- NOTE | 2019-10-19 13:48 | REP ---
REASON: Trauma: There are no prior thoracic spine plain film examinations to review. Chronic changes are seen throughout the thoracic spine with disc space narrowing and anterior lipping at every level. Vertebral body height and alignment is within normal limits involving the thoracic spine. There is no plain radiographic evidence of acute thoracic spine fracture. The pedicles appear to be intact bilaterally. Partial syndesmophyte and syndesmophyte formation is seen along the right side of the thoracic spine. IMPRESSION: Chronic changes as described above. Electronically Signed by Jama Rodriguez DO 10/19/2019 04:50 P
--- NOTE | 2019-10-20 06:46 | ED PDOC ---
Post-Departure Follow-Up dr villanueva faxed formal report of ls spine film for fu Jamel Tran MD October 20, 2019 06:46
== END 2019-10-19 13:46 | disposition home or self-care (01) ==
LOC: M ED 10:40 → EDBD 10:40 → M ED 13:46
DX: S29.012A Strain of muscle and tendon of back wall of thorax, initial encounter (principal); Z91.81 History of falling; I25.10 Atherosclerotic heart disease of native coronary artery without angina pectoris; I48.91 Unspecified atrial fibrillation; I10 Essential (primary) hypertension; E11.9 Type 2 diabetes mellitus without complications; Z87.891 Personal history of nicotine dependence; Z79.01 Long term (current) use of anticoagulants; Y92.89 Other specified places as the place of occurrence of the external cause; Y93.9 Activity, unspecified

== ENCOUNTER → 2020-03-21 | Outpatient (REF) | payer OTHER ==
[~2020-03-21] MED LIST changes: +ALFU10TA3 PO; -ALL10TAB29 PO; -AMLO10TA5 PO; +AMLO1TAB24 PO; +AMLO1TAB25 PO; -AMLO5TAB6 PO; -ASPI81TA85 PO; +ASPI81TA86 PO; +CETI-24 PO; +DICL1GEL3 TOP; +DULO1CAP6 PO; +METF500T13 PO
[2020-03-21 18:19] LABS: APPEARANCE, URINE CLEAR (CLEAR); BACTERIA, URINE AUTO NEGATIVE (NEGATIVE); BILIRUBIN, URINE AUTO NEGATIVE (NEGATIVE); BLOOD, URINE BLOOD NEGATIVE (NEGATIVE); COLOR, URINE YELLOW (YELLOW); GLUCOSE, URINE (UA) AUTO 3+ mg/dL (NEGATIVE); KETONE, URINE AUTO TRACE mg/dL (NEGATIVE); LEUKOCYTE ESTERASE, URINE AUTO NEGATIVE (NEGATIVE); NITRITE, URINE AUTO NEGATIVE (NEGATIVE); PROTEIN, URINE AUTO NEGATIVE (NEGATIVE); RBC, URINE AUTO 0 /HPF (0-3); SPECIFIC GRAVITY URINE AUTO 1.024 (1.002-1.035); SQUAMOUS EPITHELIAL CELL UR AU 0 /HPF (0-6); UROBILINOGEN, URINE AUTO 0.2 mg/dL (0.0-2.0); WBC, URINE AUTO 1 /HPF (0-3)
== END ==
LOC: M SMT 17:20
PROVIDERS: ATTEND Nurse Practitioner Women's Health
DX: N40.0 Benign prostatic hyperplasia without lower urinary tract symptoms (principal)

== ENCOUNTER → 2020-05-29 | Outpatient (CLI) | payer SELFPAY | LOC: M LABSMTC 13:56 | PROVIDERS: ATTEND Pediatrics | DX: Z20.828 Contact with and (suspected) exposure to other viral communicable diseases (principal) ==

== ENCOUNTER 2020-07-24 16:53 | Inpatient (IN) | payer OTHER, MEDICARE ==
[~2020-07-24] VITALS: Ht 182.9 cm; Wt 82.7 kg
[~2020-07-24 16:53] MED LIST changes: +GABA-282 PO; -GABA-843 PO; -LORA5SOL12 PO; +LORA5SOL44 PO
--- NOTE | 2020-07-24 17:52 | REPVR ---
PROCEDURE INFORMATION: Exam: CT Head Without Contrast Exam date and time: 07/24/2020 5:21 PM Age: 85 years old Clinical indication: Injury or trauma; Fall; Blunt trauma (contusions or hematomas); Additional info: Trauma/fall TECHNIQUE: Imaging protocol: Computed tomography of the head without contrast. Radiation optimization: All CT scans at this facility use at least one of these dose optimization techniques: automated exposure control; mA and/or kV adjustment per patient size (includes targeted exams where dose is matched to clinical indication); or iterative reconstruction. COMPARISON: CT Head without contrast 07/03/2019 4:09 PM FINDINGS: Brain: Moderately advanced generalized cerebral atrophy. Moderately advanced patchy low-density within the periventricular white matter extending into the resendiz radiata and the centrum semiovale bilaterally. Calcifications within the basal ganglia bilaterally. No hemorrhage. No mass effect. Midline structures intact. Cerebral ventricles: No ventriculomegaly. Bones/joints: Unremarkable. No acute fracture. Paranasal sinuses: Visualized sinuses are unremarkable. No fluid levels. Mastoid air cells: Visualized mastoid air cells are well aerated. Soft tissues: Unremarkable. IMPRESSION: 1. No acute findings. 2. Moderately advanced cerebral atrophy and chronic microvascular ischemic change within the deep white matter Electronically signed by: Varsha Gage On 07/24/2020 17:52:50 PM
--- NOTE | 2020-07-24 17:59 | REPVR ---
PROCEDURE INFORMATION: Exam: CT Cervical Spine Without Contrast Exam date and time: 07/24/2020 5:21 PM Age: 85 years old Clinical indication: Injury or trauma; Fall; Blunt trauma; Additional info: Fall on thinners TECHNIQUE: Imaging protocol: Computed tomography images of the cervical spine without contrast. Radiation optimization: All CT scans at this facility use at least one of these dose optimization techniques: automated exposure control; mA and/or kV adjustment per patient size (includes targeted exams where dose is matched to clinical indication); or iterative reconstruction. COMPARISON: CT Spine,cervical w/o contrast 11/22/2017 9:28 AM FINDINGS: Tubes, catheters and devices: Pacemaker wires noted on the left. Vertebrae: No acute fracture. Reversal of normal cervical lordosis. Grade 1 spondylolisthesis at C3-C4 with 3.3 mm retrolisthesis C4 with respect to C3.. C2-C3: Small posterior disc bulge. No severe spinal canal stenosis. No significant neural foraminal narrowing. C3-C4: No significant disc protrusion. Mild uncovertebral hypertrophy. No severe spinal canal stenosis. No significant neural foraminal narrowing. C4-C5: Posterior disc osteophyte ridge.. Moderately advanced uncovertebral hypertrophy. No severe spinal canal stenosis. Mild neural foraminal narrowing. C5-C6: Posterior disc osteophyte ridge.. No severe spinal canal stenosis. Mild neural foraminal narrowing. C6-C7: Posterior disc osteophyte ridge.. No severe spinal canal stenosis. Mild neural foraminal narrowing. C7-T1: No significant disc protrusion. No severe spinal canal stenosis. No significant neural foraminal narrowing. Soft tissues: Unremarkable. Lungs: Lung apices are normal. IMPRESSION: 1. No acute findings. 2. Moderately advanced degenerative disc disease. Multilevel mild foraminal stenosis. No central stenosis. Electronically signed by: Varsha Gage On 07/24/2020 18:00:07 PM
[2020-07-24 18:01] LABS: BASO % 0.7 % (0.0-1.0); EOS # 0.3 10^3/uL (0.0-0.5); EOS % 5.5 % (0.0-3.0); HEMOGLOBIN 13.8 g/dl (13.5-17.5); LYMPH # 1.1 10^3/uL (1.5-5.0); MEAN CORPUSCULAR HEMOGLOBIN 30.6 pg (27.0-33.0); MEAN CORPUSCULAR HGB CONC 32.9 g/dl (32.0-36.5); MEAN CORPUSCULAR VOLUME 93.1 fl (80.0-96.0); MONO # 0.5 10^3/uL (0.0-0.8); MONO % 8.5 % (2.0-8.0); PLATELET COUNT, AUTOMATED 167 10^3/uL (150-450); RED BLOOD COUNT 4.51 10^6/uL (4.30-6.10)
[2020-07-24 18:26] LABS: BLOOD UREA NITROGEN 14 MG/DL (7-18); CALCIUM LEVEL 8.9 MG/DL (8.8-10.2); CARBON DIOXIDE LEVEL 30 MEQ/L (21-32); CHLORIDE LEVEL 103 MEQ/L (98-107); CREATININE FOR GFR 0.77 MG/DL (0.70-1.30); GLOMERULAR FILTRATION RATE > 60.0 (>35); GLUCOSE, FASTING 193 MG/DL (70-100); POTASSIUM SERUM 3.8 MEQ/L (3.5-5.1); SODIUM LEVEL 139 MEQ/L (136-145)
[2020-07-24] MEDS ORDERED: NS 1,000 ML IV SCH (18:45)
[2020-07-24] MEDS ORDERED: MECLIZINE 25 MG TABLET PO ONE (18:45)
--- NOTE | 2020-07-24 19:16 | REP ---
INDICATION: dizzy. COMPARISON: AP 07/03/2019, CT angio 06/22/2018. TECHNIQUE: AP portable chest FINDINGS: Multilead pacer again seen with 2 leads to the right ventricle and 1 to the right atrium the battery unit overlying the left upper chest unchanged. Some volume loss with the in the right hemithorax and elevation of the right diaphragm. There is some chronic atelectasis or patchy infiltrate along the superior aspect of the minor fissure with a very similar appearance to study from a year ago. Some basilar fibrotic changes are noted on the left. I do not see definite effusion or dense consolidation with air bronchograms. Left atrium is enlarged. The aorta is calcified and tortuous. Airway displaced towards the right by the ectatic calcified tortuous aorta. Bones show degenerative changes in the spine with 2 surgical anchors in the right humeral head. No free air under the diaphragm. IMPRESSION: 1. Some left atrial enlargement with borderline heart size. No gross effusion or noel edema. Tortuous calcified aorta as before with some ectasia. This displaces the trachea towards the right 2. Chronic patchy density above the right minor fissure in the right upper lobe suggesting some chronic atelectasis or infiltrate. This was seen on the previous chest x-ray and CT, 1 and 2 years ago respectively. No masslike characteristics on that previous CT, appearance quite similar today. Underlying fibrosis and COPD. Elevated diaphragm on the right side. <Electronically signed by Chavez Jackson > 07/24/201911
[2020-07-24] MEDS ORDERED: COMBAER6 INH (20:47)
[2020-07-24] MEDS ORDERED: D31000TA2 PO (20:47)
[2020-07-24] MEDS ORDERED: IPRA6SP NARES (20:47)
[2020-07-24] MEDS ORDERED: PX S0.65 NARES (20:47)
[2020-07-24] MEDS ORDERED: HYDR-3713 PO ×2 (20:47)
[2020-07-24] MEDS ORDERED: FLUD0.1T PO (20:47)
[2020-07-24] MEDS ORDERED: DONE10TA90 PO (20:47)
[2020-07-24] MEDS ORDERED: METF-838 PO (20:47)
[2020-07-24] MEDS ORDERED: DULO30CA47 PO (20:47)
[2020-07-24] MEDS ORDERED: FEXO-4 PO (20:47)
[2020-07-24] MEDS: LACRILUBE (AKWA TEARS) OPHTH OINT 3.5 GM OU SCH (21:00)
[2020-07-24] MEDS ORDERED: MAALOX 30 ML SUSP *UDC PO PRN (21:05)
[2020-07-24] MEDS ORDERED: MOM 30ML SUSPENSION UDC PO PRN (21:05)
[2020-07-24] MEDS ORDERED: ACETAMINOPHEN TAB 650MG DOSE (2X325MG) PO PRN (21:05)
[2020-07-24] MEDS ORDERED: ISOVUE-370 76% 100ML VIAL As Ordered ONE (21:07)
--- OUTSIDE RECORDS SUMMARY | 2020-07-24 21:13 | CCD ---
Author Author [facility] Organization [facility] Address Unknown Phone Unavailable Care Team Providers [facility] Specialist Name Role Phone Brennon Galindo MD Unavailable Unavailable Brennon Galindo MD Unavailable Unavailable Brennon Galindo MD Unavailable Unavailable Brennon Galindo MD Unavailable Unavailable Brennon Galindo MD Unavailable Unavailable Brennon Galindo MD Unavailable Unavailable Brennon Galindo MD Unavailable Unavailable Brennon Galindo MD Unavailable Unavailable Brennon Galindo MD Unavailable Unavailable Brennon Galindo MD Unavailable Unavailable Brennon Galindo MD Unavailable Unavailable Prospect, Brennon MD Unavailable Unavailable Prospect, Brennon MD Unavailable Unavailable Prospect, Brennon MD Unavailable Unavailable Prospect, Brennon MD Unavailable Unavailable Prospect, Brennon MD Unavailable Unavailable Prospect, Brennon MD Unavailable Unavailable Prospect, Brennon MD Unavailable Unavailable Prospect, Brennon MD Unavailable Unavailable Prospect, Brennon MD Unavailable Unavailable Prospect, Brennon MD Unavailable Unavailable Prospect, Brennon MD Unavailable Unavailable Prospect, Brennon MD Unavailable Unavailable Prospect, Brennon MD Unavailable Unavailable Prospect, Brennon MD Unavailable Unavailable Prospect, Brennon MD Unavailable Unavailable Prospect, Brennon MD Unavailable Unavailable Prospect, Brennon MD Unavailable Unavailable PEETS, K RADAMES MD Unavailable Unavailable PEETS, K RADAMES MD Unavailable Unavailable PEETS, K RADAMES MD Unavailable Unavailable PEETS, K RADAMES MD Unavailable Unavailable PEETS, K RADAMES MD Unavailable Unavailable PEETS, K RADAMES MD Unavailable Unavailable PEETS, K RADAMES MD Unavailable Unavailable PEETS, K RADAMES MD Unavailable Unavailable PEETS, K RADAMES MD Unavailable Unavailable PEETS, K RADAMES MD Unavailable Unavailable PEETS, K RADAMES MD Unavailable Unavailable PEETS, K RADAMES MD Unavailable Unavailable PEETS, K RADAMES MD Unavailable Unavailable PEETS, K RADAMES MD Unavailable Unavailable PEETS, K RADAMES MD Unavailable Unavailable PEETS, K RADAMES MD Unavailable Unavailable PEETS, K RADAMES MD Unavailable Unavailable PEETS, K RADAMES MD Unavailable Unavailable PEETS, K RADAMES MD Unavailable Unavailable PEETS, K RADAMES MD Unavailable Unavailable PEETS, K RADAMES MD Unavailable Unavailable PEETS, K RADAMES MD Unavailable Unavailable PEETS, K RADAMES MD Unavailable Unavailable PEETS, K RADAMES MD Unavailable Unavailable PEETS, K RADAMES MD Unavailable Unavailable PEETS, K RADAMES MD Unavailable Unavailable PEETS, K RADAMES MD Unavailable Unavailable PEETS, K RADAMES MD Unavailable Unavailable PEETS, K RADAMES MD Unavailable Unavailable Re-disclosure Warning The records that you are about to access may contain information from federally-assisted alcohol or drug abuse programs. If such information is present, then the following federally mandated warning applies: This information has been disclosed to you from records protected by federal confidentiality rules (42 CFR part 2). The federal rules prohibit you from making any further disclosure of this information unless further disclosure is expressly permitted by the written consent of the person to whom it pertains or as otherwise permitted by 42 CFR part 2. A general authorization for the release of medical or other information is NOT sufficient for this purpose. The Federal rules restrict any use of the information to criminally investigate or prosecute any alcohol or drug abuse patient.The records that you are about to access may contain highly sensitive health information, the redisclosure of which is protected by Article 27-F of the [facility] Public Health law. If you continue you may have access to information: Regarding HIV / AIDS; Provided by facilities licensed or operated by the [facility] Office of Mental Health; or Provided by the [facility] Office for People With Developmental Disabilities. If such information is present, then the following [facility] mandated warning applies: This information has been disclosed to you from confidential records which are protected by state law. State law prohibits you from making any further disclosure of this information without the specific written consent of the person to whom it pertains, or as otherwise permitted by law. Any unauthorized further disclosure in violation of state law may result in a fine or longterm sentence or both. A general authorization for the release of medical or other information is NOT sufficient authorization for further disc losure. Family History Family Member Name Family Member Gender Family Member Status Date o f Status Description Data Source(s) Unknown Female Problem MEDENT ([facility]) Encounters Encounter Providers Location Date Indications Data Source(s ) [place] [address] [facility] [address] 03/29/2020 12:00:00 AM EDT eCW1 ([facility]) [place] [address] [facility] [address] 03/21/2020 12:00:00 AM EDT eCW1 ([facility]) Outpatient Attender: Brennon Rudolph/Josie/James/Luz Elena hummel 02/26/2020 09:55:00 AM EDT MEDENT ([facility]) Outpatient Referrer: RADAMES DONALDSON MD 11/01/2019 05:12:00 AM EDT [facility] Outpatient Referrer: RADAMES DONALDSON MD 09/21/2019 11:55:00 AM EDT [facility] Outpatient Referrer: RADAMES DONALDSON MD 09/21/2019 11:54:00 AM EDT [facility] Outpatient Referrer: RADAMES DONALDSON MD 07/12/2019 01:08:00 PM EST [facility] Medications Medication Brand Name Start Date Product Form Dose Route Admi nistrative Instructions Pharmacy Instructions Status Indications Reaction Description Data Source(s) Sulfamethoxazole 800 MG / Trimethoprim 1 60 MG Oral Tablet [Bactrim] Bactrim DS 800-160 MG Bactrim DS 800-160 MG 03/21/2020 12:00:00 AM EDT 1.0 {table t} active Bactrim DS 800-160 MG eCW1 ( [facility]) Sulfamethoxazole 800 MG / Trimethoprim 1 60 MG Oral Tablet [Bactrim] Bactrim DS 800-160 MG Bactrim DS 800-160 MG 03/21/2020 12:00:00 AM EDT 1.0 {table t} active Bactrim DS 800-160 MG eCW1 ( [facility]) Insurance Providers Payer name Policy type / Coverage type Policy ID Covered libertarian ID Covered libertarian's relationship to bur[place]on Policy [place] Plan Information WELLCARE [id number] SP [id number] 'S ADMINISTRATION [id number] SP [id number] MEDICARE [id number] SP [id number] OPTUM [place] CCN [id number] SP [id number] SELF PAY ONLY [id number] SP [id number] MEDICARE [id number] SP [id number] VA CCN OPTUM [id number] SP [id number] OPTUM VA O [id number] S [id number] WELLCARE O [id number] S [id number] [facility] [id number] SP [id number] MEDICARE [id number] SP [id number] MEDICARE C [id number] S [id number] [place]/136E O [id number] S [id number] WELLCARE [id number] SP [id number] TODAYS OPTIONS [id number] SP [id number] TODAYS OPTIONS/FIJIAN O [id number] S [id number] [place] Choice Prog Vacaa Medigap Part B [id number] Self [id number] Today's Options Medicare Commercial [id number] Self [id number] 's Choice Prog Vacaa Medigap Part B Self Today's Options Medicare Commercial Self MEDICARE [id number] SP [id number] A MEDICARE BLUE PPO 306 [id number] SP [id number] [place]ET[place]ANS CHOICE PROGRAM - O/P [id number] 18 [id number] OTHER B [id number] Self [id number] AMER PROG TODAYS OPTIONS G [id number] Self [id number] 'S ADMINISTRATION [id number] SP [id number] EXCELLUS BCBS P [id number] S [id number] [place] [facility] P [id number] S [id number] MEDICARE BLUE PPO S [id number] S [id number] EXCELLUS BCBS MEDICARE [id number] Julieta [id number] [facility]/136E [id number] SP [id number] VETERANS ADMINISTRATION 2 [id number] 1 [id number] MEDICARE 4 [id number] 1 [id number] A MEDICARE [id number] SP [id number] A [id number] A Problems, Conditions, and Diagnoses Code Display Name Description Problem Type Effective Dates Data Source(s) N40.0 Lower urinary tract symptoms due to ramses gn prostatic hypertrophy BPH w/o urinary obs/LUTS Problem 03/21/2020 12:00:00 AM EDT eCW ([facility]) Surgeries/Procedures Procedure Description Date Indications Data Source(s) uro PVR (Post Voiding Residual) Bladder Scan 0 12:00:00 AM EDT eCW1 ([facility]) Tympanostomy, Local/Topical Anesthesia 03/04/2020 12:0 0:00 AM EDT MEDENT ([facility] ) Results ID Date Data Source [id number] 05/29/2020 12:00:00 AM EST [facility] Name Value Range Interpretation Code Description Data [place] rce(s) Supporting Document(s) SARS-CoV-2 (COVID-19) RNA [Presence] in Respiratory specimen by SELVIN with probe detection [facility] This lab was ordered by [facility] and reported by [employer] ID Date Data Source UA URINALYSIS 03/22/2020 07:21:14 AM EDT eCW1 ([facility]) Name Value Range Interpretation Code Description Data [place] rce(s) Supporting Document(s) UA URINALYSIS eCW1 ([facility]) ID Date Data Source URINE CULTURE 03/22/2020 02:15:35 AM EDT eCW1 ([facility]) Name Value Range Interpretation Code Description Data [place] rce(s) Supporting Document(s) Laboratory studies (set) URINE CULTU RE eCW1 ([facility]) Procedure Vital Signs ID Date Data Source UNK Name Value Range Interpretation Code Description Data Source(s) Body weight 81.648 kg 81.648 kg [facility] ([facility]) [place] body weight 178 [lb_av] 178 [lb_av] [facility] ([facility]) Body mass index (BMI) [Ratio] 24.4 kg/m2 24.4 k g/m2 [facility] ([facility]) Body weight 180.00 [lb_av] 180.00 [lb_av] [facility] ([facility]) Body height 72 [in_i] 72 [in_i] [facility] ([facility]) 6'0" Diastolic blood pressure 64 mm[Hg] 64 mm[Hg] eCW1 ([facility]) Systolic blood pressure 128 mm[Hg] 128 mm[Hg] e CW1 ([facility]) Body temperature 96.2 [degF] 96.2 [degF] W1 ( [facility]) Respiratory rate 18 /min 18 /min eCW1 ([facility]) Heart rate 62 /min 62 /min eCW1 ([facility]) Body mass index (BMI) [Ratio] 24.41 kg/m2 24.41 kg/m2 W1 ([facility]) Body height 72 [in_i] 72 [in_i] eCW1 ([facility]) Body weight 180 [lb_av] 180 [lb_av] eCW1 ([facility]) Diastolic blood pressure 70 mm[Hg] 70 mm[Hg] eCW1 ([facility]) Systolic blood pressure 136 mm[Hg] 136 mm[Hg] e CW1 ([facility]) Body temperature 96.3 [degF] 96.3 [degF] eCW1 ( [facility]) Respiratory rate 18 /min 18 /min eCW1 ([facility]) Heart rate 65 /min 65 /min eCW1 ([facility]) Body mass index (BMI) [Ratio] 24.41 kg/m2 24.41 kg/m2 eCW1 ([facility]) Body height 72 [in_i] 72 [in_i] eCW1 ([facility]) Body weight 180 [lb_av] 180 [lb_av] eCW1 ([facility]) Body weight 81.648 kg 81.648 kg MEDENT ([facility]) [place] body weight 178 [lb_av] 178 [lb_av] [facility] T ([facility]) Body mass index (BMI) [Ratio] 24.4 kg/m2 24.4 k g/m2 MEDENT ([facility]) Body weight 180.00 [lb_av] 180.00 [lb_av] [facility] T ([facility]) Body height 72 [in_i] 72 [in_i] MEDENT ([facility]) 6'0" Body weight 81.648 kg 81.648 kg [facility] ([facility]) [place] body weight 178 [lb_av] 178 [lb_av] MEDEN T ([facility]) Body mass index (BMI) [Ratio] 24.4 kg/m2 24.4 k g/m2 [facility] ([facility]) Body weight 180.00 [lb_av] 180.00 [lb_av] MEDEN T ([facility]) Body height 72 [in_i] 72 [in_i] MEDENT ([facility]) 6'0"
--- OUTSIDE RECORDS SUMMARY | 2020-07-24 21:13 | CCD ---
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 Name Role Phone Anna Jaime Unavailable PROBLEMS Type Condition ICD9-CM Code QIL26-NP Code Onset Dates Condition S tatus SNOMED Code Notes Problem Carbuncle and furuncle of trunk 680.2 Active 58854266 Problem BPH w/o urinary obs/LUTS N40.0 Active 0772555 [id number] ALLERGIES No Known Allergies ENCOUNTERS from 1935 to 2020-05-09 Encounter Location Date Provider Diagnosis [facility] [address] [facility] [address] [place] [address] Feb Anna Addison Enlarged prostate with lower urinary tra ct symptoms (LUTS) N40.1 and Frequency of micturition R35.0 IMMUNIZATIONS Vaccine Route Administration Date Status Influenza (6mo & up) Fluzone Unknown Jan 30, 2016 Adm inistered Influenza (6mo & up) Fluzone Unknown August 22, 2015 Oth ers SOCIAL HISTORY Sex Assigned At : Social History Observation Description Sex Assigned At Unknown Language: Question Answer Notes Languages spoken: [place] [facility]: Question Answer Notes [facility] No scientologist beliefs that would impact health care. Alcohol Screening: Question Answer Notes Did you have a drink containing alcohol in the past year? No Points 0 Interpretation Negative REASON FOR REFERRAL No Information VITAL SIGNS Weight 180 lbs Feb, Height 72 in Feb, BMI 24.41 kg/m2 Feb, Heart Rate 62 /min Feb, Respiratory Rate 18 /min Feb, Temperature 96.2 degrees Fahrenheit Feb, Oximetry 95 Feb, Blood pressure systolic 128 mm Hg Feb, Blood pressure diastolic 64 mm Hg Feb, MEDICATIONS Medication SIG (Take, Route, Frequency, Duration) Notes Start Da te End Date Status Multivitamin Men - Orally Not-Ta aleksandar Protonix 40 MG 1 tablet Orally Once a day for 30 day(s) Not-Taking Nitroglycerin 0.4 MG as directed Sublingual Active Potassium Chloride Active Diovan 160 MG 1 tablet Orally Once a day for 30 day(s) Not-Taking Finasteride 5 MG 1 tablet Orally Once a day for 30 day(s) Active Metformin HCl 500 MG 1 tablet with meals Orally Twice a day Not-Taking Lopressor HCT 50-25 MG 1 tablet Orally Once a day for 30 day(s) Not-Taking Ipratropium Garrett 0.06 % 2 sprays in each nostril Na shelly Three times a day for 4 day(s) Active Multivitamin Men - as directed Orally Active Nitrostat 0.4 MG 1 tablet under the tongue an d allow to dissolve as needed Sublingual every 0 hrs Not-Takjulio isidro Rosuvastatin Calcium 40 MG 1 tablet Orally Once a day for 30 day(s) Active Hydrocodone-Acetaminophen 5-325 MG 1 tablet as needed Orally every 6 hrs Active Aspirin 81MG 1 tablet Orally Once a day for 30 day(s) Not-Taking Bactrim DS 800-160 MG 1 tablet Orally _-1 hour prior to cystosoc py Feb, Active Diclofenac Sodium 1 % as directed Transdermal Not-Taking MiraLax 17 GM 1 packet mixed with 8 ounces of fluid Orally Once a day for 30 day(s) Active Fexofenadine HCl 180 MG 1 tablet Orally Once a day for 30 day(s) Active Ciprofloxacin HCl 500 MG 1 tablet Orally Twice a day for 7 day(s ) September, Not-Taking Senna 8.6 MG 2 tablets at bedtime as needed Orally Once a day for 3 0 day(s) Active Donepezil HCl 10 MG 1 tablet at bedtime Orally Once a day for 30 day( s) Active Ropinirole HCl 0.5 MG 1 tablet 1 to 3 hours before bedtime Orally Once a day for 30 day(s) Active Fludrocortisone Acetate 0.1 MG 1 tablet Orally Three times a Week for 30 day(s) Active Liners Active Eliquis 5 MG as directed Orally bid Active Alfuzosin HCl ER 10 MG 1 tablet immediately after t he same meal Orally Once a day for 30 day(s) Active Acetaminophen 325 MG 2 tablet as needed Orally bid PRN Active Ensure - as directed Orally Active Duloxetine HCl 30 MG 1 capsule Orally Once a day for 30 day(s) Active Cyanocobalamin 500 MCG 1 tablet Orally Once a day for 30 day(s) Active Atenolol 25 MG 1 tablet Orally Once a day for 30 day(s) Active Vitamin D3 25 MCG (1000 UT) 1 capsule Orally Once a day for 30 day(s) Active PROCEDURES No Information RESULTS No Results REASON FOR VISIT incontinence MEDICAL (GENERAL) HISTORY Type Description Date Medical History anemia Medical History heart disease Medical History BPH Medical History CHF Medical History Coronary angioplasty status Medical History Dementia Medical History low back pain Medical History mixed hyperlipidemia Medical History OLD SD Medical History A-Fib Medical History Pacemaker Medical History DM TYPE 2 Surgical History pacemaker placement Surgical History cysto 03/29/20 Hospitalization History neck issues Hospitalization History shoulder issues Goals Section No Information Health Concerns No Information MEDICAL EQUIPMENT No Information MENTAL STATUS No Information FUNCTIONAL STATUS No Information ASSESSMENTS Encounter Date Diagnosis Assessment Notes Treatment Notes Treatm ent Clinical Notes Feb, Enlarged prostate with lower urinary tract symptoms (LUTS) (ICD-10 - N40.1) Feb, Frequency of micturition (ICD-10 - R35.0) PLAN OF TREATMENT No Information Insurance Providers Payer Name Payer Address Payer Phone Insured Name Patient Relati onship to Insured Coverage Start Date Coverage End Date 'S ADMINSTRATION ([place]) NON VA CARE [address] [address] [facility] [id number] [place] [employer] self
--- NOTE | 2020-07-24 21:23 | HPEPDOC ---
[facility] Medical History & Physical Date of Admission Jul 24, 2020 Date of Service: Jul 24, 2020 Other Provider Alexa Landis Attending Physician: LIS BECKER MD History and Physical CHIEF COMPLAINT: Dizziness HISTORY OF PRESENT ILLNESS: Patient presented to the emergency department with a chief complaint of dizziness, nausea and a headache that began yesterday. He reports that he fell in the shower yesterday as well, unsure whether or not he lost consciousness. Patient is an 85-year-old man with a past medical history significant for CAD, S/P CABG and stent placement, due to fibrillation, S/P pacemaker, depression/PTSD, NIDDM, HLD, HTN, dementia, presented to the emergency department the evening of 07/24/20 complaining of approximately 24-hour history of left-sided head pain, dizziness and generalized weakness. Patient reports fadi t yesterday, while attempting to get into the shower, he hit the left side of his head on his shower door. Patient denies losing consciousness or falling. Reports since the incident, that he has been dizzy and somewhat unsteady on his feet. He states that this has improved somewhat throughout today remains present. Denies any emesis but does report being slightly nauseous. Upon presentation, patient was found to be afebrile, pulse of 68, respirations of 16, hypertensive a blood pressure 181/87 maintaining an oxygen saturation of 99%. CBC was within normal limits, H/H of 13.8/42. Chemistry was negative for any significant findings, BUN/creatinine of 14/0.77, GFR greater than 60. COVID- 19 negative. Chronic changes noted on head CT, no fracture or dislocation on CT scan of the patient's cervical spine. Chronic atelectasis on chest x-ray. Hospitalist closed team was contacted to admit the patient for further monitoring and evaluation. PAST MEDICAL HISTORY: Coronary artery disease, S/P CABG, stents 3 Symptomatic bradycardia Atrial fibrillation, S/P pacemaker History of GI bleed Depression/PTSD NIDDM Hyperlipidemia Hypertension History of Nephrolithiasis ALICE, noncompliant with CPAP BPH PAST SURGICAL HISTORY: Pacemaker, 2010 Primary arthroplasty Right shoulder surgery Multiple hernia repairs Umbilical hernia, last in 2017 Shrapnel in left flank in 1950s secondary to [place] SOCIAL HISTORY: Marital status: Resides in: Own home Children: 2 daughters, one of which is a retired RN Employment: Retired Tobacco use: Former smoker ETOH: Denies any alcohol use Illicit drug use: Denies any illicit drug use FAMILY HISTORY: Father: , coronary artery disease, [place] Mother: , Unknown brain tumor Siblings: Brother past of sudden at age 62 unknown cause ALLERGIES: Please see below. REVIEW OF SYSTEMS: Review of systems limited by patient's underlying dementia and difficulty hearing. CONSTITUTIONAL: Denies any recent fevers or chills, no changes in appetite or difficulty sleeping HEENT: Reports left sided head pain, particularly with palpation or patient hit his head on the shower door yesterday, 07/23/20. Denies any headache or vision changes. No ringing in his ears, changes in smell or taste. No difficulty swallowing. CARDIOVASCULAR: Patient reports intermittent chest pain, chronic and long- standing. He currently denies chest pain or pressure. Palpitations RESPIRATORY: Reports long-standing shortness of breath particularly with activity, denies any change in his respiratory status. No coughing or wheezing GASTROINTESTINAL: Patient tells me that he has not vomited, he has been slightly nauseous but that is improved today. Has any blood in his stool. GENITOURINARY: Reports history of difficulty urinating secondary to BPH. Denies any change SKIN: Denies any new skin rashes or lesions, no bruising MUSCULOSKELETAL: Chronic bilateral leg pain, chronic NEUROLOGICAL: Patient denies any numbness or tingling in his face, hands and arms feet or legs. Reports generalized, but denies focal weakness. Reports baseline memory trouble. HOME MEDICATIONS: Please see below. PHYSICAL EXAMINATION: VITAL SIGNS: Please see below GENERAL APPEARANCE: Patient was interviewed and examined in the emergency department. He was found to be resting comfortably in bed, easily arousable and in no acute distress. Patient is quite hard of hearing and requires rectal focalization into his ear. HEENT: Normocephalic, atraumatic, slight pain with palpation of the left side of patient's face. No overlying skin changes including [place], bruising or e rythema. EOMI, PERRLA, sclera nonicteric, nares are patent, he ears with cerumen bilaterally, TMs visualized without any notable dysfunction. Poor oral hygiene. No mouth lesions or sores. No cervical lymphadenopathy or cervical neck tenderness. CARDIOVASCULAR: Irregular rate and rhythm, 2 out of 4 systolic murmur appreciated radiating to the carotids LUNGS: Layer to auscultation bilaterally, fair movement throughout. No conversational dyspnea ABDOMEN: Off, nontender, nondistended, no guarding or rigidity MUSCULOSKELETAL: Patient is able to move his neck, upper extremities and lower extremities without any difficulty. Strength measured at 5 out of 5 and symmetric. EXTREMITIES: Lower extremity swelling or edema. NEUROLOGICAL: Cranial nerves II through XII are intact, no dysphasia or dysarthr ia appreciated. Sensation intact bilaterally in upper and lower extremities. Patient is able to properly follow commands. He is alert and oriented to person and place but not time. DTRs are 4 out of 5 in both upper and lower extremities bilaterally. PSYCHIATRIC: Mood and affect are appropriate given patient's current clinical condition LABORATORY DATA: See below. IMAGING: Head CT (07/24/20): No acute findings, moderately advanced triple atrophy with chronic microvascular ischemic change within the deep white matter Cervical spine CT (07/24/20): No acute findings, moderately advanced degenerative disc disease. Multilevel mild foraminal stenosis. No central stenosis. Chest x-ray (07/24/20): Some left atrial enlargement borderline heart size. No gross effusions or noel edema. Tortuous calcified aorta as before some ectasia. Displaces trachea towards the right. Chronic patchy density above the right minor fissure in the right upper lobe suggestive of chronic atelectasis or infiltrate. Seen on previous chest x-ray and CT one and 2 years ago respectively. No masslike characteristics on previous CT, appearance is similar today. Underlying fibrosis and COPD. Elevated diaphragm on the right. MICROBIOLOGY: Please see below. ASSESSMENT/PLAN: #Dizziness, unsteady gait -Pt reports hitting his head on his shower door, mid-day on 07/23/20. Denies fall, LOC. Reports persistent dizziness from then on. Improvement with meclizine, IVF in ED. -Given history, CVA must remain on the differential. -No definitive finding on CT imaging. Slight tenderness to lateral head on palpation. No focal neurological deficits on exam. -CTA patient's head and neck, troponin, orthostats -Telemetry monitoring, Q4H Neuro checks #Coronary artery disease, S/P CABG -Atenolol, rosuvastatin #Atrial fibrillation, S/P pacemaker -Neg head CT, CTA pending as above. Denies bleeding. -c/w Eliquis #Hypertension -Hypertensive at presentation, giving a dose of amlodipine in ED -c/w home atenolol #History of GI bleed -H/H stable, denies hematemesis, melena or hematochezia #Depression -c/w duloxetine #NIDDM -Hold metformin -SSI #Dry eyes -Atrificial tears Hyperlipidemia -c/w home statin #Chronic pain -c/w home pain medication -Bowel regimen for constipation #Restless legs -c/w home ropinirole #Dementia -c/w home aricept #BPH -c/w home finasteride DVT PROPHYLAXIS: Eliquis CODE STATUS: FULL CODE, confirmed with patient at time of admission DISPOSITION: Anticipate > 2 night stay Vital Signs Vital Signs Date Time Temp Pulse Resp B/P (MAP) Pulse Ox O2 Delivery O2 Flow Rate FiO2 07/24/20 20:53 70 94 07/24/20 20:45 157/84 (108) 07/24/20 18:15 97.7 07/24/20 16:54 16 Laboratory Data Labs 24H Laboratory Tests 2 07/24/20 17:44: Immature Granulocyte % (Auto) 0.3, Neutrophils (%) (Auto) 66.0, Lymphocytes (%) (Auto) 19.0L, Monocytes (%) (Auto) 8.5H, Eosinophils (%) (Auto) 5.5H, Basophils (%) (Auto) 0.7, Neutrophils # (Auto) 4.0, Lymphocytes # (Auto) 1.1L, Monocytes # (Auto) 0.5, Eosinophils # (Auto) 0.3, Basophils # (Auto) 0.0, Nucleated Red Blood Cells % (auto) 0.0, Anion Gap 6L, Glomerular Filtration Rate > 60.0, Calcium Level 8.9 CBC/BMP Laboratory Tests 07/24/20 17:44 Microbiology Microbiology 07/24/20 Respiratory Virus Panel (PCR) ([facility]), Received Pending Home Medications Scheduled Acetaminophen (Tylenol) 325 Mg Tablet, 650 MG PO TID Alfuzosin HCl (Alfuzosin HCl ER) 10 Mg Tab.er.24h, 10 MG PO QPM Apixaban (Eliquis) 5 Mg Tab, 5 MG PO BID Atenolol (Atenolol) 25 Mg Tab, 25 MG PO DAILY Cholecalciferol (Vitamin D3) (Vitamin D3) 1,000 Unit Tablet, 1,000 UNITS PO DAILY Cyanocobalamin (Vitamin B-12) (Vitamin B-12) 500 Mcg Tablet, 1,000 MCG PO DAILY Diclofenac Sodium (Diclofenac Sodium) 1% 100GM Gel..gram., 2 GRAM TOP TID Donepezil HCl (Donepezil HCl) 10 Mg Tablet, 10 MG PO QPM Duloxetine HCl (Duloxetine HCl) 30 Mg Capsule.dr, 90 MG PO QPM Fexofenadine HCl (Fexofenadine HCl) 180 Mg Tablet, 180 MG PO DAILY Finasteride (Finasteride) 5 Mg Tab, 5 MG PO DAILY Fludrocortisone Acetate (Fludrocortisone Acetate) 0.1 Mg Tablet, 0.1 MG PO DAILY Hydrocodone/Acetaminophen (Hydrocodone-Acetamin 5-325 mg) 1 Each Tablet, 1 TAB PO BID 0800/1800 Ipratropium [place] (Ipratropium [place]) 15 Ml Cement, 2 SPRAY NARES BID Ipratropium/Albuterol Sulfate (Combivent Respimat 20-100 Mcg) 4 Gm Mist.inhal, 1 PUFF INH QID Lactose-Reduced Food (Ensure Plus) 237 Ml Liquid, 1 LIQ PO BID Metformin HCl (Metformin HCl ER) 500 Mg Tab.er.24h, 500 MG PO QPM Mineral Oil/Petrolatum,White (Artificial Tears Eye Ointment) 3.5 Gm Oint...g., 1 DOSE OU QHS Multivitamins (Thera M Plus Tablet) 1 Tab Tab, 1 TAB PO DAILY Potassium Chloride (K-Tab ER) 10 Meq Tab, 20 MEQ PO BID Ropinirole HCl (Ropinirole HCl) 0.5 Mg Tablet, 0.5 MG PO QPM Rosuvastatin Calcium (Rosuvastatin Calcium) 40 Mg Tab, 20 MG PO QPM Sennosides (Senna Lax) 8.6 Mg Tablet, 17.2 MG PO BID Vitc/E/Zn/Copper/Lutein/Zeaxan (Icaps Areds2 Softgel) 1 Each Capsule, 1 CAP PO BID Scheduled PRN Ammonium Lactate (Ammonium Lactate) 12% Cream..g., 1 DOSE TOP BID PRN for DRY SKIN APPLY TO FEET Hydrocodone/Acetaminophen (Hydrocodone-Acetamin 5-325 mg) 1 Each Tablet, 1 TAB PO QHS PRN for PAIN MDD 4 Nitroglycerin (Nitrostat) 0.4 Mg Subl, 0.4 MG SL NITRO PRN for CHEST PAIN Polyethylene Glycol 3350 (Miralax) 119 Gm Powder, 17 GM PO TID PRN for CONSTIPATION Polyvinyl Alcohol (Artificial Tears) 15 Ml Drops, 1 DROP OU QID PRN for DRY EYES Sodium Chloride (Saline Nasal Cement) 88 Ml Cement, 2 SPRAYS NARES TID PRN for NASAL DRYNESS Allergies Coded Allergies: No Known Allergies (Unverified , 07/03/19) A-FIB/CHADSVASC A-FIB History Current/History of A-Fib/PAF?: No Current PO Anticoag Therapy: No GME ATTESTATION GME ATTESTATION My faculty preceptor for this patient encounter was physically present during the encounter and was fully available. All aspects of the patient interview, examination, medical decision making process, and medical care plan development were reviewed and approved by the faculty preceptor. The faculty preceptor is aware and concurs with the plan as stated in the body of this note and will attest to such by his/her cosignature. ATTENDING NOTE time of service 930pm is an 85 yr old M w a hx of chronic microvascular ischemic disease, CAD, CABG, A fib, NIDDM, DVT, HTN, pacemaker, BPH & impaired hearing who was brought in by family members for evaluation of dizziness and unsteady gait ; he will be admitted for evaluation of dizziness and unsteady gait possibly 2/2 posterior CVA & uncontrolled HTN- Plan: admit to medical floor / telemetry / check orthostats /f/u frequent neurochecks / f/u CTA head and neck / he is unable to get an MRI bc of his pacemaker / check lipids and A1C / the day time team may consider a Neurology consult vs out-pt Neuro eval rest per 's H&P DAYDAY BRYAN DO Jul 24, 2020 21:23 LIS BECKER MD Jul 24, 2020 23:50
[2020-07-24] MEDS ORDERED: NORCO, ANEXSIA 5/325MG TABLET (HYDROcodone/ACETAMINOPHEN) PO PRN (21:25)
[2020-07-24] MEDS ORDERED: SODIUM CHLORIDE NASAL 0.65% SPRAY BTL (OCEAN) PRN (21:25)
[2020-07-24] MEDS ORDERED: LACTIC ACID 12% LOTION 225 GM BTL TOP PRN (21:25)
[2020-07-24] MEDS ORDERED: MIRALAX *UNIT DOSE* 17GM PACKET PO PRN (21:25)
[2020-07-24] MEDS ORDERED: POLYVINYL ALCOHOL OPHTH SOLN 15 ML(LIQUITEARS) OU PRN (21:25)
--- NOTE | 2020-07-24 21:58 | REPVR ---
PROCEDURE INFORMATION: Exam: CT Angiography Head With Contrast Exam date and time: 07/24/2020 9:15 PM Age: 85 years old Clinical indication: Dizziness and giddiness; Additional info: Dizziness suspect posterior CVA TECHNIQUE: Imaging protocol: Computed tomography angiography of the head with intravenous contrast. 3D rendering (Not supervised by radiologist): MIP and/or 3D reconstructed images were created by the technologist. Radiation optimization: All CT scans at this facility use at least one of these dose optimization techniques: automated exposure control; mA and/or kV adjustment per patient size (includes targeted exams where dose is matched to clinical indication); or iterative reconstruction. Contrast material: ISOVUE 370; Contrast volume: 100 ml; Contrast route: INTRAVENOUS (IV); COMPARISON: CT ANGIO HEAD 07/03/2019 5:38 PM FINDINGS: ANTERIOR CIRCULATION: Right internal carotid artery: Atherosclerotic change of the cavernous and supraclinoid right internal carotid arteries. Intracranial segment is patent with no significant stenosis. No aneurysm. Right middle cerebral artery: Unremarkable. No occlusion or significant stenosis. No aneurysm. Right anterior cerebral artery: Atherosclerotic change.. No occlusion or significant stenosis. No aneurysm. Left internal carotid artery: Atherosclerotic change of the cavernous and supraclinoid left internal carotid artery. Intracranial segment is patent with no significant stenosis. No aneurysm. Left middle cerebral artery: Unremarkable. No occlusion or significant stenosis. No aneurysm. Left anterior cerebral artery: Atherosclerotic change noted of the A1 segment of the left anterior cerebral artery. No significant stenosis. POSTERIOR CIRCULATION: Right vertebral artery: Unremarkable. No occlusion or significant stenosis. No aneurysm. Left vertebral artery: Unremarkable. No occlusion or significant stenosis. No aneurysm. Basilar artery: Unremarkable. No occlusion or significant stenosis. No aneurysm. Right posterior cerebral artery: Scattered mild Atherosclerotic narrowing of the P1 and P2 segments of the right posterior cerebral artery. Left posterior cerebral artery: Scattered mild Atherosclerotic narrowing of the P1 and P2 segments of the left posterior cerebral artery. Brain: Advanced Patchy low-density in the periventricular white matter extending into resendiz radiata and centrum semiovale bilaterally. Moderate cerebral atrophy.. Basal ganglia calcifications. Cerebral ventricles: No ventriculomegaly. Bones/joints: Unremarkable. No acute fracture. Soft tissues: Unremarkable. IMPRESSION: 1. No acute findings. 2. Atherosclerotic change noted in the pnhmiq-he-Qdxisf. 3. Moderately advanced chronic microvascular ischemic change in the deep white matter. Cerebral atrophy. No significant change from previous. Electronically signed by: Varsha Gage On 07/24/2020 21:58:13 PM
--- NOTE | 2020-07-24 22:02 | REPVR ---
PROCEDURE INFORMATION: Exam: CT Angiography Neck With Contrast Exam date and time: 07/24/2020 9:15 PM Age: 85 years old Clinical indication: Dizziness and giddiness; Additional info: Dizziness suspect posterior CVA TECHNIQUE: Imaging protocol: Computed tomography angiography of the neck with intravenous contrast. 3D rendering (Not supervised by radiologist): MIP and/or 3D reconstructed images were created by the technologist. Radiation optimization: All CT scans at this facility use at least one of these dose optimization techniques: automated exposure control; mA and/or kV adjustment per patient size (includes targeted exams where dose is matched to clinical indication); or iterative reconstruction. Contrast material: ISOVUE 370; Contrast volume: 100 ml; Contrast route: INTRAVENOUS (IV); COMPARISON: CT ANGIO NECK 07/03/2019 5:38 PM FINDINGS: Right common carotid artery: Calcified and soft plaque in the right common carotid artery. Right internal carotid artery: Calcified and soft plaque in the right carotid bulb and right proximal ICA. No ICA stenosis on the right.. Right external carotid artery: No occlusion or stenosis of the origin. Right vertebral artery: No stenosis. No dissection or occlusion. Left common carotid artery: Calcified and soft plaque noted within the left common carotid artery. Left internal carotid artery: Calcified plaque in the left carotid bulb. Calcified plaque in the left proximal ICA with approximate 40% stenosis. Left external carotid artery: No occlusion or stenosis of the origin. Left vertebral artery: Atherosclerotic change. No stenosis. No dissection or occlusion. Bones/joints: No acute fracture. Soft tissues: Pacemaker implanted within the soft tissues of the left anterior chest wall. Pacemaker wires are evident.. No significant soft tissue swelling. IMPRESSION: 1. Mild stenosis right proximal internal carotid artery 2. Mild stenosis left proximal internal carotid artery. 3. Atherosclerotic change of the vertebral arteries bilaterally. No stenosis. REFERENCES: NASCET CRITERIA. The degree of internal carotid artery stenosis is based on NASCET criteria. Normal is no stenosis. Mild is less than 50% stenosis. Moderate is 50-69% stenosis. Severe is 70% to 99% stenosis. Total occlusion is no detectable patent lumen. Electronically signed by: Varsha Gage On 07/24/2020 22:03:06 PM
[2020-07-24 22:34] VITALS: BP 177/95
[2020-07-24 22:44] VITALS: BP 177/86
[2020-07-24 22:45] VITALS: BP 133/74
[2020-07-24] MEDS ORDERED: MECLIZINE 25 MG TABLET PO PRN (22:55)
[2020-07-24] MEDS ORDERED: amLODIPine 5 MG TAB PO STA (22:59)
[2020-07-24] MEDS: ROSUVASTATIN 10 MG TAB (CRESTOR) PO SCH (23:13)
[2020-07-24] MEDS: POTASSIUM CHLORIDE 10 MEQ SR TABLET PO SCH (23:14)
[2020-07-24] MEDS: DULoxetine 30 MG CAP (CYMBALTA) PO SCH (23:16)
[2020-07-24] MEDS: NORCO, ANEXSIA 5/325MG TABLET (HYDROcodone/ACETAMINOPHEN) PO SCH (23:16)
[2020-07-24] MEDS: DONEPEZIL 5 MG TAB PO SCH (23:17)
[2020-07-24] MEDS: APIXABAN 5 MG TAB (ELIQUIS) PO SCH (23:17)
[2020-07-24] MEDS: SENNA 8.6 MG TAB (SENOKOT) PO SCH (23:17)
[2020-07-24 23:29] VITALS: BP 181/86
[2020-07-25] VITALS (12 sets, daily range): BP systolic 109–172; BP diastolic 59–83
[2020-07-25] MEDS: TAMSULOSIN 0.4 MG CAP PO SCH ×2 (02:18→20:12)
[2020-07-25] MEDS: rOPINIRole 0.25 MG TAB(REQUIP) PO SCH ×2 (02:18→17:36)
[2020-07-25] MEDS: COMBIVENT RESPIMAT 100-20MCG INHALER 4GM INH SCH ×5 (03:09→20:15)
[2020-07-25 05:10] LABS: HEMATOCRIT 40.4 % (42.0-52.0); HEMOGLOBIN 13.1 g/dl (13.5-17.5); MEAN CORPUSCULAR HEMOGLOBIN 30.1 pg (27.0-33.0); MEAN CORPUSCULAR HGB CONC 32.4 g/dl (32.0-36.5); MEAN CORPUSCULAR VOLUME 92.9 fl (80.0-96.0); PLATELET COUNT, AUTOMATED 168 10^3/uL (150-450); RED BLOOD COUNT 4.35 10^6/uL (4.30-6.10); WHITE BLOOD COUNT 6.3 10^3/uL (4.0-10.0)
[2020-07-25 05:28] LABS: ALBUMIN 3.2 GM/DL (3.2-5.2); ALT/SGPT 16 U/L (12-78); BILIRUBIN,TOTAL 0.4 MG/DL (0.2-1.0); BLOOD UREA NITROGEN 11 MG/DL (7-18); CALCIUM LEVEL 8.4 MG/DL (8.8-10.2); CARBON DIOXIDE LEVEL 31 MEQ/L (21-32); CHLORIDE LEVEL 103 MEQ/L (98-107); CHOLESTEROL LEVEL 86 MG/DL (<200); CREATININE FOR GFR 0.67 MG/DL (0.70-1.30); GLOMERULAR FILTRATION RATE > 60.0 (>35); GLUCOSE, FASTING 152 MG/DL (70-100); HDL CHOLESTEROL 40 MG/DL (>40); LDL CHOLESTEROL 28 MG/DL (<100); MAGNESIUM LEVEL 1.4 MG/DL (1.8-2.4); NON-HDL-C 46 MG/DL; POTASSIUM SERUM 3.5 MEQ/L (3.5-5.1); SODIUM LEVEL 136 MEQ/L (136-145); TOTAL PROTEIN 6.4 GM/DL (6.4-8.2); TRIGLYCERIDES LEVEL 89 MG/DL (<150)
[2020-07-25 05:32] LABS: HEMOGLOBIN A1c 8.1 %
[2020-07-25] MEDS: atenoloL 25 MG TAB PO SCH (09:00)
[2020-07-25] MEDS: VITAMIN D 1,000 INTERNATIONAL UNITS TABLET PO SCH (09:04)
[2020-07-25] MEDS: MULTIVITAMINS/MINERALS THERAP 1 TAB PO SCH (09:04)
[2020-07-25] MEDS: POTASSIUM CHLORIDE 10 MEQ SR TABLET PO SCH ×2 (09:04→20:12)
[2020-07-25] MEDS: SENNA 8.6 MG TAB (SENOKOT) PO SCH ×2 (09:04→20:13)
[2020-07-25] MEDS: APIXABAN 5 MG TAB (ELIQUIS) PO SCH ×2 (09:05→20:12)
[2020-07-25] MEDS: NORCO, ANEXSIA 5/325MG TABLET (HYDROcodone/ACETAMINOPHEN) PO SCH ×2 (09:05→17:37)
[2020-07-25] MEDS: FLUDROCORTISONE ACETATE 0.1 MG TAB PO SCH (09:05)
[2020-07-25] MEDS: CYANOCOBALAMIN 500 MCG TAB PO SCH (09:06)
[2020-07-25] MEDS: FINASTERIDE 5 MG TAB PO SCH (09:06)
[2020-07-25] MEDS: DOCUSATE SODIUM 100MG CAPSULE PO SCH ×2 (09:06→20:12)
--- NOTE | 2020-07-25 09:37 | ECGEPIP ---
[facility] - ED Test Date: 2020-07-24 Pat Name: BRANDT ADLER Department: Room: [place] [address] Gender: Male Swift Tender: matteo FRANKLINB: 1935 Requested By: IZABELLA OTT Order Number: [id number] Reading MD: Eve Cortez Measurements Intervals [place] Rate: 60 P: NC: QRS: -87 QRSD: 186 T: 83 QT: 496 QTc: 496 Interpretive Statements Ventricular-paced rhythm similar 07/03/19 Electronically Signed on 07-25-2020 9:36:42 EST by Eve Cortez
--- NOTE | 2020-07-25 15:25 | IPNPDOC ---
Subjective Date Seen The patient was seen on 07/25/20. Subjective Chief Complaint/HPI Mr. Delgado is an 85-year-old male with atrial fibrillation on anticoagulation, dmd-mesgngb-bhdpgxtzt diabetes mellitus, hypertension, and pacemaker placement who presents with persistent vertigo after head trauma. This morning, he reports having vertigo while in bed. Reports a rocking sensation. He was seen again this afternoon, reports that his vertigo was improving. Denies any headache, chest pain, or dyspnea. Touched base with neurology. Recommended physical therapy and repeat CT head. If vertigo persists, patient can see outpatient audiology prior to seeing neurology. Objective Physical Examination General Exam: Positive: Alert, Cooperative Eye Exam: Positive: EOMI; Negative: Sclera icteric ENT Exam: Positive: Atraumatic Neck Exam: Positive: Supple Chest Exam: Positive: Clear to auscultation; Negative: Rales, Rhonchi, Wheezing Heart Exam: Positive: Rate Normal, Regular Rhythm Abdomen Exam: Positive: Normal bowel sounds, Soft; Negative: Tenderness Extremity Exam: Negative: Edema Neuro Exam: Positive: Cranial Nerves 3-12 NL Psych Exam: Positive: Mental status NL, Mood NL Assessment /Plan Assessment Mr. Delgado is an 85-year-old male with atrial fibrillation on anticoagulation, gwt-fqfvapq-luieeitud diabetes mellitus, hypertension, and pacemaker placement who presents with persistent vertigo after head trauma. Unable to do MRI due to pacemaker placement. CT angiogram of neck demonstrates mild stenosis bilaterally. CT angiogram of head demonstrates atherosclerotic changes in [place]. Reached out to neurology, and neurology is suspecting BPPV from trauma. Recommending repeat CT head and physical therapy. If patient's vertigo p ersists, recommends outpatient audiology. Plan/VTE VTE Prophylaxis Ordered?: Yes Plan 1. Vertigo CVA versus BPPV Occurred after trauma which makes it more suspicious for BPPV CT head negative. CT angiogram demonstrates arthrosclerosis but patent Touched base with neurology. Recommended repeat CT head and physical therapy. If vertigo persists, recommends outpatient audiology On meclizine 2. Atrial fibrillation status post pacemaker Continue apixaban Continue atenolol 3. CAD status post CABG Stable, no chest pain Continue atenolol and rosuvastatin 4. Hypertension Continue atenolol and amlodipine 5. History of GI bleed H&H stable Transient CBCs 6. Depression Continue duloxetine 7. Ntd-lkigela-sigkdekma diabetes mellitus Sliding scale insulin Carbohydrate consistent diet 8. Restless leg syndrome Continue ropinirole 9. Dementia Continue Aricept 10. BPH Continue tamsulosin and finasteride 11. DVT prophylaxis On apixaban Disposition: Pending repeat CT head and recommendations from PT and OT VS, I&O, 24H, Fishbone Vital Signs/I&O Vital Signs Date Time Temp Pulse Resp B/P (MAP) Pulse Ox O2 Delivery O2 Flow Rate FiO2 07/25/20 14:00 97.8 60 18 150/74 (99) 93 Room Air 07/25/20 06:00 2.0 I&O- Last 24 Hours up to 6 AM 07/25/20 06:00 Intake Total 1100 ml Output Total 850 ml Balance 250 ml Laboratory Data 24H LABS Laboratory Tests 2 07/24/20 17:44: Immature Granulocyte % (Auto) 0.3, Neutrophils (%) (Auto) 66.0, Lymphocytes (%) (Auto) 19.0L, Monocytes (%) (Auto) 8.5H, Eosinophils (%) (Auto) 5.5H, Basophils (%) (Auto) 0.7, Neutrophils # (Auto) 4.0, Lymphocytes # (Auto) 1.1L, Monocytes # (Auto) 0.5, Eosinophils # (Auto) 0.3, Basophils # (Auto) 0.0, Nucleated Red Blood Cells % (auto) 0.0, Anion Gap 6L, Glomerular Filtration Rate > 60.0, Calcium Level 8.9 07/24/20 22:31: Troponin I 0.02 07/25/20 04:50: Nucleated Red Blood Cells % (auto) 0.0, Anion Gap 2L, Glomerular Filtration Rate > 60.0, Calcium Level 8.4L, Estimated Mean Plasma Glucose 186H, Hemoglobin A1c 8.1, Magnesium Level 1.4L, Total Bilirubin 0.4, Aspartate Amino Transf (AST/SGOT) 10, Alanine Aminotransferase (ALT/SGPT) 16, Alkaline Phosphatase 53, Total Protein 6.4, Albumin 3.2, Albumin/Globulin Ratio 1.0, Triglycerides Level 89, Total Cholesterol 86, LDL Cholesterol 28, Non-HDL Cholesterol (LDL + VLDL) 46, Total HDL Cholesterol 40, Cholesterol/HDL Ratio 2.150 CBC/BMP Laboratory Tests 07/24/20 17:44 07/25/20 04:50 Microbiology Microbiology 07/24/20 Respiratory Virus Panel (PCR) ([facility]) - Final, Complete HARSH LOYOLA DO Jul 25, 2020 15:25
--- NOTE | 2020-07-25 15:30 | REPVR ---
PROCEDURE INFORMATION: Exam: CT Head Without Contrast Exam date and time: 07/25/2020 2:45 PM Age: 85 years old Clinical indication: Injury or trauma; Fall; Blunt trauma (contusions or hematomas); Other: Vertigo; Additional info: Re-eval for head trauma on eliquis with persistent vertigo TECHNIQUE: Imaging protocol: Computed tomography of the head without contrast. Radiation optimization: All CT scans at this facility use at least one of these dose optimization techniques: automated exposure control; mA and/or kV adjustment per patient size (includes targeted exams where dose is matched to clinical indication); or iterative reconstruction. COMPARISON: CT Head without contrast 07/24/2020 5:19 PM FINDINGS: Brain: The brain demonstrates diffuse volume loss. There is marked deep white matter hypodensity most consistent with chronic small vessel ischemic change. No visible evolving territorial infarct. No hemorrhage. Cerebral ventricles: The ventricles are enlarged in keeping with volume loss. Bones/joints: Severe degenerative changes of the left temporomandibular joint. Paranasal sinuses: Visualized sinuses are unremarkable. No fluid levels. Mastoid air cells: Visualized mastoid air cells are well aerated. Orbital cavity: Thinning of the lenses of the globes consistent with prior lens surgery. Soft tissues: Unremarkable. IMPRESSION: No acute intracranial abnormality seen. Electronically signed by: Yen Glover On 07/25/2020 15:30:33 PM
[2020-07-25] MEDS: DONEPEZIL 5 MG TAB PO SCH (17:36)
[2020-07-25] MEDS: DULoxetine 30 MG CAP (CYMBALTA) PO SCH (17:36)
[2020-07-25] MEDS: ROSUVASTATIN 10 MG TAB (CRESTOR) PO SCH (17:36)
[2020-07-25] MEDS: LACRILUBE (AKWA TEARS) OPHTH OINT 3.5 GM OU SCH (20:12)
[2020-07-26 06:00] VITALS: BP 150/86
[2020-07-26 06:31] LABS: HEMOGLOBIN 13.7 g/dl (13.5-17.5); MEAN CORPUSCULAR HEMOGLOBIN 30.4 pg (27.0-33.0); MEAN CORPUSCULAR HGB CONC 32.6 g/dl (32.0-36.5); MEAN CORPUSCULAR VOLUME 93.1 fl (80.0-96.0); PLATELET COUNT, AUTOMATED 182 10^3/uL (150-450); RED BLOOD COUNT 4.51 10^6/uL (4.30-6.10); WHITE BLOOD COUNT 7.1 10^3/uL (4.0-10.0)
[2020-07-26 07:02] LABS: ALBUMIN 3.5 GM/DL (3.2-5.2); ALT/SGPT 16 U/L (12-78); BILIRUBIN,TOTAL 0.4 MG/DL (0.2-1.0); BLOOD UREA NITROGEN 11 MG/DL (7-18); CALCIUM LEVEL 8.7 MG/DL (8.8-10.2); CARBON DIOXIDE LEVEL 28 MEQ/L (21-32); CHLORIDE LEVEL 104 MEQ/L (98-107); GLOMERULAR FILTRATION RATE > 60.0 (>35); GLUCOSE, FASTING 179 MG/DL (70-100); POTASSIUM SERUM 4.1 MEQ/L (3.5-5.1); SODIUM LEVEL 138 MEQ/L (136-145); TOTAL PROTEIN 6.2 GM/DL (6.4-8.2)
[2020-07-26] MEDS: COMBIVENT RESPIMAT 100-20MCG INHALER 4GM INH SCH ×3 (07:24→15:29)
[2020-07-26] MEDS: NORCO, ANEXSIA 5/325MG TABLET (HYDROcodone/ACETAMINOPHEN) PO SCH ×3 (08:20→17:53)
[2020-07-26] MEDS: CYANOCOBALAMIN 500 MCG TAB PO SCH (08:21)
[2020-07-26] MEDS: FINASTERIDE 5 MG TAB PO SCH (08:21)
[2020-07-26] MEDS: VITAMIN D 1,000 INTERNATIONAL UNITS TABLET PO SCH (08:21)
[2020-07-26] MEDS: SENNA 8.6 MG TAB (SENOKOT) PO SCH (08:21)
[2020-07-26] MEDS: DOCUSATE SODIUM 100MG CAPSULE PO SCH (08:21)
[2020-07-26] MEDS: POTASSIUM CHLORIDE 10 MEQ SR TABLET PO SCH (08:21)
[2020-07-26] MEDS: APIXABAN 5 MG TAB (ELIQUIS) PO SCH (08:21)
[2020-07-26] MEDS: MULTIVITAMINS/MINERALS THERAP 1 TAB PO SCH (08:21)
[2020-07-26] MEDS: FLUDROCORTISONE ACETATE 0.1 MG TAB PO SCH (08:21)
[2020-07-26 08:22] VITALS: BP 143/65
[2020-07-26] MEDS: atenoloL 25 MG TAB PO SCH (08:22)
[2020-07-26 10:00] VITALS: BP 156/73
--- NOTE | 2020-07-26 13:14 | IPNPDOC ---
Subjective Date Seen The patient was seen on 07/26/20. Subjective Chief Complaint/HPI Mr. Delgado is an 85-year-old male with atrial fibrillation on anticoagulation, rws-pkshdzf-ejgpgzzcg diabetes mellitus, hypertension, and pacemaker placement who presents with persistent vertigo after head trauma. Patient still has vertigo. Tells me that it is worse when he standing. Otherwise denies any chest pain. Has chronic dyspnea unchanged from prior. Objective Physical Examination General Exam: Positive: Alert, Cooperative Eye Exam: Positive: EOMI; Negative: Sclera icteric ENT Exam: Positive: Atraumatic Neck Exam: Positive: Supple Chest Exam: Positive: Clear to auscultation; Negative: Rales, Rhonchi, Wheezing Heart Exam: Positive: Rate Normal, Regular Rhythm Abdomen Exam: Positive: Normal bowel sounds, Soft; Negative: Tenderness Extremity Exam: Negative: Edema Neuro Exam: Positive: Cranial Nerves 3-12 NL Psych Exam: Positive: Mental status NL, Mood NL Assessment /Plan Assessment Mr. Delgado is an 85-year-old male with atrial fibrillation on anticoagulation, wdb-mwfiyof-dffiydrfy diabetes mellitus, hypertension, and pacemaker placement who presents with persistent vertigo after head trauma. Unable to do MRI due to pacemaker placement. CT angiogram of neck demonstrates mild stenosis bilaterally. CT angiogram of head demonstrates atherosclerotic changes in [place]. Reached out to neurology, and neurology is suspecting BPPV from trauma. Recommending repeat CT head and physical therapy. If patient's vertigo persists, recommends outpatient audiology. Repeat of CT head is negative Plan/VTE VTE Prophylaxis Ordered?: Yes Plan 1. Vertigo CVA versus BPPV Occurred after trauma which makes it more suspicious for BPPV Unable to obtain MRI due to pacemaker CT head negative. CT angiogram demonstrates arthrosclerosis but patent Touched base with neurology. Recommended repeat CT head and physical therapy. If vertigo persists, recommends outpatient audiology Repeat CT head is negative On meclizine 2. Atrial fibrillation status post pacemaker Continue apixaban Continue atenolol 3. CAD status post CABG Stable, no chest pain Continue atenolol and rosuvastatin 4. Hypertension Continue atenolol and amlodipine 5. History of GI bleed H&H stable Trend CBCs 6. Depression Continue duloxetine 7. Rqn-bkcuxuh-rcztfoxxm diabetes mellitus Sliding scale insulin Carbohydrate consistent diet 8. Restless leg syndrome Continue ropinirole 9. Dementia Continue Aricept 10. BPH Continue tamsulosin and finasteride 11. DVT prophylaxis On apixaban Disposition: Pending PT, OT, and ARU screening. Rehab versus correction versus home VS, I&O, 24H, Fishbone Vital Signs/I&O Vital Signs Date Time Temp Pulse Resp B/P (MAP) Pulse Ox O2 Delivery O2 Flow Rate FiO2 07/26/20 10:00 96.7 60 18 156/73 (100) 97 Room Air 07/25/20 06:00 2.0 I&O- Last 24 Hours up to 6 AM 07/26/20 05:59 Intake Total 1170 ml Output Total 1075 ml Balance 95 ml Laboratory Data 24H LABS Laboratory Tests 2 07/26/20 06:15: Nucleated Red Blood Cells % (auto) 0.0, Anion Gap 6L, Glomerular Filtration Rate > 60.0, Calcium Level 8.7L, Total Bilirubin 0.4, Aspartate Amino Transf (AST/SGOT) 9, Alanine Aminotransferase (ALT/SGPT) 16, Alkaline Phosphatase 57, Total Protein 6.2L, Albumin 3.5, Albumin/Globulin Ratio 1.3 CBC/BMP Laboratory Tests 07/26/20 06:15 Microbiology Microbiology 07/24/20 Respiratory Virus Panel (PCR) ([facility]) - Final, Complete HARSH LOYOLA DO Jul 26, 2020 12:43
[2020-07-26] MEDS ORDERED: AMLO25TA PO (16:23)
[2020-07-26] MEDS ORDERED: MECL-86 PO (16:23)
[2020-07-26] MEDS: DONEPEZIL 5 MG TAB PO SCH (17:53)
[2020-07-26] MEDS: DULoxetine 30 MG CAP (CYMBALTA) PO SCH (17:53)
[2020-07-26] MEDS: ROSUVASTATIN 10 MG TAB (CRESTOR) PO SCH (17:53)
[2020-07-26] MEDS: rOPINIRole 0.25 MG TAB(REQUIP) PO SCH (17:53)
--- NOTE | 2020-07-26 19:26 | DS.PDOC ---
Discharge Summary General Date of Admission Jul 24, 2020 at 20:56 Date of Discharge Jul 26, 2020 Attending Physician: HARSH LOYOLA DO Discharge Summary PROCEDURES PERFORMED DURING STAY: None ADMITTING DIAGNOSES: 1. Vertigo 2. Unstable gait 3. CAD status post CABG 4. Atrial fibrillation status post pacemaker 5. Hypertension 6. History of GI bleed 7. Rwz-xlhjppz-xfzhnewsx diabetes mellitus 8. Depression 9. Hyperlipidemia 10. Restless leg syndrome 11. Dementia 12. BPH DISCHARGE DIAGNOSES: 1. BPPV 2. Unstable gait 3. CAD status post CABG 4. Atrial fibrillation status post pacemaker 5. Hypertension 6. History of GI bleed 7. Rpe-xqicwrt-cswegupsw diabetes mellitus 8. Depression 9. Hyperlipidemia 10. Restless leg syndrome 11. Dementia 12. BPH COMPLICATIONS/CHIEF COMPLAINT: Dizzinesses, Unsteady Gait. HISTORY OF PRESENT ILLNESS: Mr. De La Garza is a 85-year-old male with diabetes mellitus, hypertension, and atrial fibrillation on apixaban who presents for vertigo that started the day prior to admission. He slipped in the shower and fell. He had the left-sided of his head. Denies loss of consciousness. Afterwards he's been having vertigo and was unsteady on his feet. This had made him nauseous. Patient was admitted for workup for vertigo. HOSPITAL COURSE: He was worked up for stroke. CT head was negative. Unable to obtain MRI due to pacemaker. CT angiogram of head and neck demonstrated mild stenosis of the internal carotid arteries bilaterally and atherosclerotic wray es of the [place] of [place]. There was moderately advanced chronic microvascular ischemic change within the deep white matter. Of note, echocardiogram with bubble study was obtained on 07/26/2020. On 07/25/2020, I reached out to neurology. Since we cannot get the MRI, neurology recommended repeating the CT head. Repeat CT head was negative. Otherwise, since the vertigo happened after head strike, neurology suspects patient has loosened otoliths which caused vertigo. Recommended physical therapy. If vertigo did not improve patient could see cardiology before going to see neurology. Physical therapy worked with the patient and could not reproduce vertigo. Patient already had home PT and OT and 17/12 care at home. Patient feels well today and was subsequently discharged home. DISCHARGE MEDICATIONS: Please see below. ALLERGIES: Please see below. PHYSICAL EXAMINATION ON DISCHARGE: VITAL SIGNS: Please see below. GENERAL: Comfortable, in no apparent distress HEENT: Head normocephalic, atraumatic NECK: Supple CARDIOVASCULAR EXAMINATION: Regular rate and rhythm RESPIRATORY EXAMINATION: Lungs clear to auscultation bilaterally ABDOMINAL EXAMINATION: Soft, non-tender, normal bowel sounds EXTREMITIES: No pitting edema bilaterally SKIN: Warm and dry NEUROLOGICAL EXAMINATION: CN 3-12 grossly intact PSYCHIATRIC EXAMINATION: Normal mood and affect LABORATORY DATA: Please see below. IMAGING: CT head 1. No acute findings. 2. Moderately advanced cerebral atrophy and chronic microvascular ischemic change within the deep white matter CT spine 1. No acute findings. 2. Moderately advanced degenerative disc disease. Multilevel mild foraminal stenosis. No central stenosis. CXR 1. Some left atrial enlargement with borderline heart size. No gross effusion or noel edema. Tortuous calcified aorta as before with some ectasia. This displaces the trachea towards the right 2. Chronic patchy density above the right minor fissure in the right upper lobe suggesting some chronic atelectasis or infiltrate. This was seen on the previous chest x-ray and CT, 1 and 2 years ago respectively. No masslike characteristics on that previous CT, appearance quite similar today. Underlying fibrosis and COPD. Elevated diaphragm on the right side. CT angio neck 1. Mild stenosis right proximal internal carotid artery 2. Mild stenosis left proximal internal carotid artery. 3. Atherosclerotic change of the vertebral arteries bilaterally. No stenosis. CT angio head 1. No acute findings. 2. Atherosclerotic change noted in the iogvru-km-Omknwv. 3. Moderately advanced chronic microvascular ischemic change in the deep white matter. Cerebral atrophy. No significant change from previous. PROGNOSIS: Good ACTIVITY: As tolerated. DIET: Carbohydrate Consistent Diet DISCHARGE PLAN: Home with home services DISPOSITION: 01 Home, Self-Care. DISCHARGE INSTRUCTIONS: 1. Follow up with PCP within 5 days ITEMS TO FOLLOWUP ON ON OUTPATIENT: 1. Echocardiogram DISCHARGE CONDITION: Stable. Total time spent on discharge planning, discharge summary, and medication reconciliation: 55 minutes Vital Signs/I&Os Vital Signs Date Time Temp Pulse Resp B/P (MAP) Pulse Ox O2 Delivery O2 Flow Rate FiO2 07/26/20 17:53 16 Room Air 07/26/20 10:00 96.7 60 156/73 (100) 97 07/25/20 06:00 2.0 I&O- Last 24 Hours up to 6 AM 07/26/20 06:00 Intake Total 1170 ml Output Total 1275 ml Balance -105 ml Laboratory Data Labs 24H Laboratory Tests 2 07/26/20 06:15: Nucleated Red Blood Cells % (auto) 0.0, Anion Gap 6L, Glomerular Filtration Rate > 60.0, Calcium Level 8.7L, Total Bilirubin 0.4, Aspartate Amino Transf (AST/SGOT) 9, Alanine Aminotransferase (ALT/SGPT) 16, Alkaline Phosphatase 57, Total Protein 6.2L, Albumin 3.5, Albumin/Globulin Ratio 1.3 CBC/BMP Laboratory Tests 07/26/20 06:15 Microbiology Microbiology 07/24/20 Respiratory Virus Panel (PCR) ([facility]) - Final, Complete Discharge Medications Scheduled Acetaminophen (Tylenol) 325 Mg Tablet, 650 MG PO TID, (Reported) Alfuzosin HCl (Alfuzosin HCl ER) 10 Mg Tab.er.24h, 10 MG PO QPM, (Reported) Amlodipine Besylate (Amlodipine Besylate) 2.5 Mg Tablet, 2.5 MG PO DAILY Apixaban (Eliquis) 5 Mg Tab, 5 MG PO BID, (Reported) Atenolol (Atenolol) 25 Mg Tab, 25 MG PO DAILY, (Reported) Cholecalciferol (Vitamin D3) (Vitamin D3) 1,000 Unit Tablet, 1,000 UNITS PO DAILY, (Reported) Cyanocobalamin (Vitamin B-12) (Vitamin B-12) 500 Mcg Tablet, 1,000 MCG PO DAILY, (Reported) Diclofenac Sodium (Diclofenac Sodium) 1% 100GM Gel..gram., 2 GRAM TOP TID, (Reported) Donepezil HCl (Donepezil HCl) 10 Mg Tablet, 10 MG PO QPM, (Reported) Duloxetine HCl (Duloxetine HCl) 30 Mg Capsule.dr, 90 MG PO QPM, (Reported) Fexofenadine HCl (Fexofenadine HCl) 180 Mg Tablet, 180 MG PO DAILY, (Reported) Finasteride (Finasteride) 5 Mg Tab, 5 MG PO DAILY, (Reported) Fludrocortisone Acetate (Fludrocortisone Acetate) 0.1 Mg Tablet, 0.1 MG PO DAILY, (Reported) Hydrocodone/Acetaminophen (Hydrocodone-Acetamin 5-325 mg) 1 Each Tablet, 1 TAB PO BID, (Reported) 0800/1800 Ipratropium Advance (Ipratropium Advance) 15 Ml [place], 2 SPRAY NARES BID, (Reported) Ipratropium/Albuterol Sulfate (Combivent Respimat 20-100 Mcg) 4 Gm Mist.inhal, 1 PUFF INH QID, (Reported) Lactose-Reduced Food (Ensure Plus) 237 Ml Liquid, 1 LIQ PO BID, (Reported) Metformin HCl (Metformin HCl ER) 500 Mg Tab.er.24h, 500 MG PO QPM, (Reported) Mineral Oil/Petrolatum,White (Artificial Tears Eye Ointment) 3.5 Gm Oint...g., 1 DOSE OU QHS, (Reported) Multivitamins (Thera M Plus Tablet) 1 Tab Tab, 1 TAB PO DAILY, (Reported) Potassium Chloride (K-Tab ER) 10 Meq Tab, 20 MEQ PO BID, (Reported) Ropinirole HCl (Ropinirole HCl) 0.5 Mg Tablet, 0.5 MG PO QPM, (Reported) Rosuvastatin Calcium (Rosuvastatin Calcium) 40 Mg Tab, 20 MG PO QPM, (Reported) Sennosides (Senna Lax) 8.6 Mg Tablet, 17.2 MG PO BID, (Reported) Vitc/E/Zn/Copper/Lutein/Zeaxan (Icaps Areds2 Softgel) 1 Each Capsule, 1 CAP PO BID, (Reported) Scheduled PRN Ammonium Lactate (Ammonium Lactate) 12% Cream..g., 1 DOSE TOP BID PRN for DRY SKIN, (Reported) APPLY TO FEET Hydrocodone/Acetaminophen (Hydrocodone-Acetamin 5-325 mg) 1 Each Tablet, 1 TAB PO QHS PRN for PAIN, (Reported) MDD 4 Meclizine HCl (Meclizine HCl) 25 Mg Tablet, 25 MG PO Q6HP PRN for VERTIGO/DIZZINESS Nitroglycerin (Nitrostat) 0.4 Mg Subl, 0.4 MG SL NITRO PRN for CHEST PAIN, (Reported) Polyethylene Glycol 3350 (Miralax) 119 Gm Powder, 17 GM PO TID PRN for CONSTIPATION, (Reported) Polyvinyl Alcohol (Artificial Tears) 15 Ml Drops, 1 DROP OU QID PRN for DRY EYES, (Reported) Sodium Chloride (Saline Nasal [place]) 88 Ml [place], 2 SPRAYS NARES TID PRN for NASAL DRYNESS, (Reported) Allergies Coded Allergies: No Known Allergies (Unverified , 2/3/20) HARSH LOYOLA DO Jul 26, 2020 19:26
--- NOTE | 2020-07-29 12:44 | ECHO ---
DATE OF PROCEDURE: 07/26/2020 Age: 85 Gender: Male REFERRING PHYSICIAN: Gabbi Quezada MD PATIENT LOCATION: Room 4229. REASON FOR STUDY: Cerebrovascular accident (CVA). 2D MEASUREMENTS: IVS 1.6 cm LVPW 1.2 cm LV 4.7 LA 4.6 cm Aorta 4.2 cm IVC 1.9 cm DOPPLER MEASUREMENT Peak velocity across the aortic valve 1.2 m/s Peak velocity across the LVOT 0.66 m/s Mitral E 0.80 Mitral A 0.56 with a ratio of 1.4 Maximum tricuspid valve velocity 2.7 m/s 2D COMMENTS: 1. Normal left ventricular size and systolic function, with a low normal global left ventricular systolic function. The estimated left ventricular systolic ejection fraction is 50% to 55%. Subjectively, there is mild concentric left ventricular hypertrophy. 2. Mildly dilated left atrium at 4.6 cm. Normal right atrium and right ventricle. 3. The atrial septum appeared to be normal without evidence of defect or shunt. 4. Mildly dilated aortic root at 4.3 cm. 5. The atrial septum appeared to be normal without evidence of defect or shunt. 6. Trace pericardial effusion noted, no evidence of cardiac tamponade. 7. Mildly calcified aortic valve with normal leaflet excursion. Mildly calcified mitral annulus with normal anterior mitral valve leaflet motion. Normal tricuspid valve and pulmonic valve. The proximal pulmonary artery branches were not well visualized. 8. The inferior vena cava is normal in size, central venous pressure is most likely normal. 9. Doppler detects mild aortic regurgitation, bbgk-kf-fbonwdhp mitral regurgitation, moderate to severe tricuspid regurgitation. The calculated pulmonary artery systolic pressure varies between 30 to 40 mmHg. Assessment of the left ventricular diastolic function appeared to be normal. IMPRESSION: 1. Low normal global left ventricular systolic function with probably mild concentric left ventricular hypertrophy. Assessment of the left ventricular diastolic function appeared to be normal. 2. Aortic valve sclerosis with mild aortic regurgitation, but no aortic stenosis. 3. Mitral annular calcification with [id number]-ti-kyiqrebd mitral regurgitation and a mildly enlarged left atrium. 4. Moderate to severe tricuspid regurgitation with mild pulmonary hypertension. 5. Mildly dilated aortic root at 4.3 cm. 6. A trace pericardial effusion was noted, no evidence of cardiac tamponade. 7. Pacemaker wire artifacts noted in the right heart chambers. 8. Bubble study with agitated normal saline was negative for intracardiac shunt. MTDD
== END 2020-07-26 18:33 | disposition home or self-care (01) | DRG 149 ==
LOC: M ED 16:53 → M ED INP 20:56 → M ICU 22:12 → M MSPAV 07-25 11:03
PROVIDERS: ADMIT Internal Medicine; ATTEND Internal Medicine
DX: H81.10 Benign paroxysmal vertigo, unspecified ear (principal); R26.81 Unsteadiness on feet; I10 Essential (primary) hypertension; I25.10 Atherosclerotic heart disease of native coronary artery without angina pectoris; I48.91 Unspecified atrial fibrillation; F32.9 Major depressive disorder, single episode, unspecified; F43.10 Post-traumatic stress disorder, unspecified; E11.9 Type 2 diabetes mellitus without complications; E78.5 Hyperlipidemia, unspecified; G47.33 Obstructive sleep apnea (adult) (pediatric); N40.0 Benign prostatic hyperplasia without lower urinary tract symptoms; G89.29 Other chronic pain; F03.90 Unspecified dementia, unspecified severity, without behavioral disturbance, psychotic disturbance, mood disturbance, and anxiety; H04.123 Dry eye syndrome of bilateral lacrimal glands; G25.81 Restless legs syndrome; Z87.891 Personal history of nicotine dependence; Z79.01 Long term (current) use of anticoagulants; Z95.0 Presence of cardiac pacemaker; Z79.891 Long term (current) use of opiate analgesic; Z95.5 Presence of coronary angioplasty implant and graft; Z91.19 Patient's noncompliance with other medical treatment and regimen; Z79.899 Other long term (current) drug therapy; Z87.442 Personal history of urinary calculi; Z79.84 Long term (current) use of oral hypoglycemic drugs; Z20.822 Contact with and (suspected) exposure to COVID-19

== ENCOUNTER 2021-06-15 18:09 | Emergency (ER) | payer OTHER ==
[~2021-06-15] VITALS: Ht 182.9 cm; Wt 81.8 kg
[~2021-06-15 18:09] MED LIST changes: +AMLO25TA PO; +ASPI-569 PO; -ASPI81TAEC PO; -CEFD1CAP8 PO; +CEFD300C41 PO; +D31000TA2 PO; +DONE-1 PO; +DONE10TA90 PO; +DONE5TAB86 PO; -DONETAB5 PO; -DONETAB6 PO; +DULO30CA47 PO; +FERR324T21 PO; -FERR325T16 PO; +FEXO-4 PO; +IPRA6SP NARES; +LOSA25TA13 PO; -LOSA25TA14 PO; +MECL-86 PO; +METF-1191 PO; +METF-838 PO; -METF-954 PO; +PX S0.65 NARES
[2021-06-15] MEDS ORDERED: JARD1TAB3 PO (18:29)
[2021-06-15] MEDS ORDERED: AMLO1TAB25 PO (18:29)
[2021-06-15] MEDS ORDERED: MAGN200T10 PO (18:29)
[2021-06-15] MEDS ORDERED: BOOSTRIX/ADACEL VACCINE (DIPHTH/PERTUSS/ACELL/TETANUS) 0.5ML SYR IM ONE (20:05)
[2021-06-15] MEDS ORDERED: DERMABOND TOPICAL SKIN ADHESIVE TOP ONE (20:05)
[2021-06-15] MEDS ORDERED: NEOSPORIN TOP OINT 15GM TOP ONE (20:05)
[2021-06-15 20:54] VITALS: BP 163/77
== END 2021-06-15 20:56 | disposition home or self-care (01) ==
LOC: M ED 18:09
DX: S91.111A Laceration without foreign body of right great toe without damage to nail, initial encounter (principal); S90.411A Abrasion, right great toe, initial encounter; Z87.442 Personal history of urinary calculi; E11.9 Type 2 diabetes mellitus without complications; K21.9 Gastro-esophageal reflux disease without esophagitis; J44.9 Chronic obstructive pulmonary disease, unspecified; I25.2 Old myocardial infarction; Z79.899 Other long term (current) drug therapy; Y92.009 Unspecified place in unspecified non-institutional (private) residence as the place of occurrence of the external cause; Y93.9 Activity, unspecified; Y99.9 Unspecified external cause status

== ENCOUNTER 2021-08-04 13:02 | Inpatient (IN) | payer OTHER ==
[~2021-08-04] VITALS: Ht 182.9 cm; Wt 79.1 kg
[~2021-08-04 13:02] MED LIST changes: -D31000TA2 PO; +JARD1TAB3 PO; +MAGN200T10 PO; +VITA100093 PO
[2021-08-04 14:39] LABS: BASO # 0.1 10^3/uL (0.0-0.2); BASO % 0.8 % (0.0-1.0); EOS # 0.2 10^3/uL (0.0-0.5); EOS % 2.8 % (0.0-3.0); HEMATOCRIT 40.2 % (42.0-52.0); HEMOGLOBIN 12.9 g/dl (13.5-17.5); LYMPH # 0.6 10^3/uL (1.5-5.0); LYMPH % 9.9 % (24.0-44.0); MEAN CORPUSCULAR HEMOGLOBIN 29.2 pg (27.0-33.0); MEAN CORPUSCULAR HGB CONC 32.1 g/dl (32.0-36.5); MONO # 0.7 10^3/uL (0.0-0.8); MONO % 10.2 % (2.0-8.0); NEUTROPHILS # 4.8 10^3/uL (1.5-8.5); PLATELET COUNT, AUTOMATED 118 10^3/uL (150-450); RED BLOOD COUNT 4.42 10^6/uL (4.30-6.10); WHITE BLOOD COUNT 6.4 10^3/uL (4.0-10.0)
[2021-08-04 14:57] LABS: ABG BASE EXCESS -2.2 (-2.0-2.0); ABG HCO3 22.4 MEQ/L (22.0-26.0); ABG O2 SATURATION 93.9 % (95.0-99.0); ABG PARTIAL PRESSURE O2 75.4 mmHg (75.0-100.0); ABG STANDARD HCO3 22.6 MEQ/L (22.0-26.0); ABG TOTAL CO2 23.6 MEQ/L (23.0-31.0); ABG pH (ARTERIAL) 7.389 UNITS (7.350-7.450)
[2021-08-04 15:17] LABS: ALBUMIN 3.5 GM/DL (3.2-5.2); ALT/SGPT 26 U/L (12-78); BILIRUBIN,DIRECT 0.5 MG/DL (0.0-0.2); BILIRUBIN,TOTAL 0.8 MG/DL (0.2-1.0); BLOOD UREA NITROGEN 17 MG/DL (7-18); CALCIUM LEVEL 8.8 MG/DL (8.8-10.2); CARBON DIOXIDE LEVEL 27 MEQ/L (21-32); CHLORIDE LEVEL 107 MEQ/L (98-107); CREATININE FOR GFR 0.84 MG/DL (0.70-1.30); FREE T4 1.19 NG/DL (0.76-1.46); GLOMERULAR FILTRATION RATE > 60.0 (>35); GLUCOSE, FASTING 112 MG/DL (70-100); LIPASE 29 U/L (73-393); NT-PRO BNP 5317 PG/ML (<450); SODIUM LEVEL 140 MEQ/L (136-145); TOTAL PROTEIN 6.6 GM/DL (6.4-8.2)
[2021-08-04] MEDS ORDERED: FUROSEMIDE 40MG/4ML VIAL (J1940) IV ONE (15:35)
[2021-08-04] MEDS ORDERED: GLUCOSE 4GM CHEW TABLET PO PRN (17:10)
[2021-08-04] MEDS ORDERED: GLUCAGON INJ 1MG VIAL SC PRN (17:10)
[2021-08-04] MEDS ORDERED: DEXTROSE 50% 50 ML SYRINGE IV PRN (17:10)
[2021-08-04] MEDS ORDERED: atenoloL 25 MG TAB PO ONE (17:20)
[2021-08-04] MEDS: HumaLOG INSULIN (NovoLOG) PER UNIT SC SCH ×2 (17:30→21:00)
[2021-08-04] MEDS ORDERED: JARD1TAB3 PO (17:56)
[2021-08-04] MEDS ORDERED: ROSU20TA5 PO (17:56)
[2021-08-04] MEDS ORDERED: AMLO1TAB24 PO (17:56)
[2021-08-04] MEDS ORDERED: HOME MED LIST COMPLETE! XX SCH (18:00)
[2021-08-04] MEDS ORDERED: MIRALAX *UNIT DOSE* 17GM PACKET PO PRN (19:25)
[2021-08-04] MEDS ORDERED: POLYVINYL ALCOHOL OPHTH SOLN 15 ML(LIQUITEARS) OU PRN (19:25)
[2021-08-04] MEDS ORDERED: NITROGLYCERIN 0.4 MG SUBL TABLET SL PRN (19:25)
[2021-08-04] MEDS ORDERED: SENNA 8.6 MG TAB (SENOKOT) PO PRN (19:25)
[2021-08-04] MEDS ORDERED: LACTIC ACID 12% LOTION 225 GM BTL TOP PRN (19:25)
[2021-08-04] MEDS ORDERED: MECLIZINE 25 MG TABLET PO PRN (19:25)
[2021-08-04] MEDS ORDERED: cloNIDine 0.2 MG TAB PO PRN (19:30)
[2021-08-04] MEDS: hydrALAZINE 20MG/ML 1ML VIAL (J0360 PER 20MG) IV SCH (20:03)
[2021-08-04] MEDS: atenoloL 25 MG TAB PO SCH (21:00)
[2021-08-04] MEDS: LACRILUBE (AKWA TEARS) OPHTH OINT 3.5 GM OU SCH (21:00)
[2021-08-04] MEDS: POTASSIUM CHLORIDE 10MEQ SR TABLET PO SCH (21:00)
[2021-08-04 21:05] VITALS: BP 166/76
[2021-08-04 22:00] VITALS: BP 166/76
[2021-08-04] MEDS: ROSUVASTATIN 10 MG TAB (CRESTOR) PO SCH (22:24)
[2021-08-04] MEDS: ISOSORBIDE DIN (ISORDIL) 10MG TAB PO SCH (22:24)
[2021-08-04] MEDS: APIXABAN 5 MG TAB (ELIQUIS) PO SCH (22:25)
[2021-08-04] MEDS: ACETAMINOPHEN TAB 650MG DOSE (2X325MG) PO SCH (22:25)
[2021-08-04] MEDS: FUROSEMIDE injection 250 MG in D5W 225 ML IV SCH (22:37)
[2021-08-05] VITALS: BP 170/80
[2021-08-05] MEDS: hydrALAZINE 20MG/ML 1ML VIAL (J0360 PER 20MG) IV SCH ×3 (00:23→07:43)
[2021-08-05] MEDS: NORCO, ANEXSIA 5/325MG TABLET (HYDROcodone/ACETAMINOPHEN) PO PRN ×2 (00:25→20:53)
[2021-08-05 00:33] LABS: CK-MB VALUE MASS 2.9 NG/ML (<3.6); MB/CK RELATIVE INDEX 3.33 (< OR =4)
[2021-08-05 04:00] VITALS: BP 154/75
[2021-08-05 05:52] LABS: HEMATOCRIT 41.9 % (42.0-52.0); HEMOGLOBIN 13.7 g/dl (13.5-17.5); MEAN CORPUSCULAR HEMOGLOBIN 29.1 pg (27.0-33.0); MEAN CORPUSCULAR HGB CONC 32.7 g/dl (32.0-36.5); PLATELET COUNT, AUTOMATED 130 10^3/uL (150-450); RED BLOOD COUNT 4.71 10^6/uL (4.30-6.10); WHITE BLOOD COUNT 9.5 10^3/uL (4.0-10.0)
[2021-08-05 06:13] LABS: BLOOD UREA NITROGEN 18 MG/DL (7-18); CALCIUM LEVEL 8.9 MG/DL (8.8-10.2); CARBON DIOXIDE LEVEL 29 MEQ/L (21-32); CHLORIDE LEVEL 104 MEQ/L (98-107); CREATININE FOR GFR 0.87 MG/DL (0.70-1.30); GLOMERULAR FILTRATION RATE > 60.0 (>35); GLUCOSE, FASTING 104 MG/DL (70-100); POTASSIUM SERUM 3.4 MEQ/L (3.5-5.1); SODIUM LEVEL 141 MEQ/L (136-145)
[2021-08-05] MEDS: ISOSORBIDE DIN (ISORDIL) 10MG TAB PO SCH (06:13)
[2021-08-05 06:18] LABS: CK-MB VALUE MASS 2.4 NG/ML (<3.6); MB/CK RELATIVE INDEX 2.11 (< OR =4)
[2021-08-05] MEDS: HumaLOG INSULIN (NovoLOG) PER UNIT SC SCH ×4 (07:30→21:00)
[2021-08-05] MEDS: NORCO, ANEXSIA 5/325MG TABLET (HYDROcodone/ACETAMINOPHEN) PO SCH ×2 (07:44→17:15)
[2021-08-05] MEDS: ACETAMINOPHEN TAB 650MG DOSE (2X325MG) PO SCH ×3 (07:44→20:52)
[2021-08-05] MEDS: MULTIVITAMINS/MINERALS THERAP 1 TAB PO SCH (07:45)
[2021-08-05] MEDS: VITAMIN D 1,000 INTERNATIONAL UNITS TABLET PO SCH (07:45)
[2021-08-05] MEDS: POTASSIUM CHLORIDE 10MEQ SR TABLET PO SCH ×2 (07:45→20:51)
[2021-08-05] MEDS: CYANOCOBALAMIN 500 MCG TAB PO SCH (07:46)
[2021-08-05] MEDS: FINASTERIDE 5 MG TAB PO SCH (07:46)
[2021-08-05] MEDS: APIXABAN 5 MG TAB (ELIQUIS) PO SCH ×2 (07:46→20:54)
[2021-08-05 08:00] VITALS: BP 164/77
[2021-08-05] MEDS: COMBIVENT RESPIMAT 100-20MCG INHALER 4GM INH SCH ×4 (08:00→20:25)
[2021-08-05] MEDS ORDERED: POTASSIUM CHLORIDE 10MEQ SR TABLET PO ONE (11:00)
[2021-08-05 12:00] VITALS: BP 122/56
[2021-08-05 12:03] LABS: C REACTIVE PROTEIN QUANTITATIV < 0.30 MG/DL (0.00-0.30); MAGNESIUM LEVEL 1.8 MG/DL (1.8-2.4)
[2021-08-05 12:18] LABS: ERYTHROCYTE SEDIMENTATION RATE 4 mm/hr (0-20)
[2021-08-05 16:00] VITALS: BP 145/68
[2021-08-05] MEDS: DULoxetine 30MG CAPSULE (CYMBALTA) PO SCH (17:14)
[2021-08-05 20:00] VITALS: BP 170/80
[2021-08-05] MEDS: ROSUVASTATIN 10 MG TAB (CRESTOR) PO SCH (20:51)
[2021-08-05] MEDS: TAMSULOSIN 0.4 MG CAP PO SCH (20:51)
[2021-08-05] MEDS: **hydrALAZINE HCL** 25 MG TAB PO PRN (20:53)
[2021-08-05] MEDS: atenoloL 25 MG TAB PO SCH (20:54)
[2021-08-05] MEDS: NYSTATIN 100,000 UNITS/GM TOPICAL PWD 15 GM TOP SCH (20:55)
[2021-08-05] MEDS: LACRILUBE (AKWA TEARS) OPHTH OINT 3.5 GM OU SCH (21:04)
[2021-08-05] MEDS: FUROSEMIDE injection 250 MG in D5W 225 ML IV SCH (22:44)
[2021-08-06] VITALS (7 sets, daily range): BP systolic 131–196; BP diastolic 69–95
[2021-08-06] MEDS: **hydrALAZINE HCL** 25 MG TAB PO PRN (05:36)
[2021-08-06 06:19] LABS: HEMATOCRIT 40.2 % (42.0-52.0); HEMOGLOBIN 13.4 g/dl (13.5-17.5); MEAN CORPUSCULAR HEMOGLOBIN 28.9 pg (27.0-33.0); MEAN CORPUSCULAR HGB CONC 33.3 g/dl (32.0-36.5); MEAN CORPUSCULAR VOLUME 86.6 fl (80.0-96.0); PLATELET COUNT, AUTOMATED 145 10^3/uL (150-450); RED BLOOD COUNT 4.64 10^6/uL (4.30-6.10); WHITE BLOOD COUNT 9.6 10^3/uL (4.0-10.0)
[2021-08-06 06:44] LABS: BLOOD UREA NITROGEN 22 MG/DL (7-18); CALCIUM LEVEL 9.3 MG/DL (8.8-10.2); CARBON DIOXIDE LEVEL 30 MEQ/L (21-32); CHLORIDE LEVEL 102 MEQ/L (98-107); CREATININE FOR GFR 0.98 MG/DL (0.70-1.30); GLOMERULAR FILTRATION RATE > 60.0 (>35); GLUCOSE, FASTING 131 MG/DL (70-100); POTASSIUM SERUM 3.7 MEQ/L (3.5-5.1); SODIUM LEVEL 140 MEQ/L (136-145)
[2021-08-06] MEDS: COMBIVENT RESPIMAT 100-20MCG INHALER 4GM INH SCH ×4 (07:14→20:28)
[2021-08-06] MEDS: HumaLOG INSULIN (NovoLOG) PER UNIT SC SCH ×4 (08:40→20:55)
[2021-08-06] MEDS: NORCO, ANEXSIA 5/325MG TABLET (HYDROcodone/ACETAMINOPHEN) PO SCH ×2 (08:40→18:12)
[2021-08-06] MEDS: ACETAMINOPHEN TAB 650MG DOSE (2X325MG) PO SCH ×3 (08:41→21:07)
[2021-08-06] MEDS: MULTIVITAMINS/MINERALS THERAP 1 TAB PO SCH (08:42)
[2021-08-06] MEDS: CYANOCOBALAMIN 500 MCG TAB PO SCH (08:42)
[2021-08-06] MEDS: NYSTATIN 100,000 UNITS/GM TOPICAL PWD 15 GM TOP SCH ×2 (08:42→21:08)
[2021-08-06] MEDS: FINASTERIDE 5 MG TAB PO SCH (08:42)
[2021-08-06] MEDS: VITAMIN D 1,000 INTERNATIONAL UNITS TABLET PO SCH (08:42)
[2021-08-06] MEDS: POTASSIUM CHLORIDE 10MEQ SR TABLET PO SCH ×2 (08:42→21:05)
[2021-08-06] MEDS: APIXABAN 5 MG TAB (ELIQUIS) PO SCH ×2 (08:42→21:05)
[2021-08-06] MEDS: DULoxetine 30MG CAPSULE (CYMBALTA) PO SCH (18:11)
[2021-08-06] MEDS: LACRILUBE (AKWA TEARS) OPHTH OINT 3.5 GM OU SCH (21:04)
[2021-08-06] MEDS: TAMSULOSIN 0.4 MG CAP PO SCH (21:05)
[2021-08-06] MEDS: ROSUVASTATIN 10 MG TAB (CRESTOR) PO SCH (21:08)
[2021-08-06] MEDS: atenoloL 25 MG TAB PO SCH (21:08)
[2021-08-06] MEDS: FUROSEMIDE injection 250 MG in D5W 225 ML IV SCH (21:09)
[2021-08-07 00:25] VITALS: BP 186/91
[2021-08-07] MEDS: **hydrALAZINE HCL** 25 MG TAB PO PRN (00:43)
[2021-08-07] MEDS: NORCO, ANEXSIA 5/325MG TABLET (HYDROcodone/ACETAMINOPHEN) PO PRN (00:43)
[2021-08-07 00:47] VITALS: BP 169/79
[2021-08-07 04:25] VITALS: BP 160/81
[2021-08-07 05:39] LABS: HEMATOCRIT 42.6 % (42.0-52.0); HEMOGLOBIN 14.1 g/dl (13.5-17.5); MEAN CORPUSCULAR HGB CONC 33.1 g/dl (32.0-36.5); MEAN CORPUSCULAR VOLUME 87.5 fl (80.0-96.0); PLATELET COUNT, AUTOMATED 135 10^3/uL (150-450); RED BLOOD COUNT 4.87 10^6/uL (4.30-6.10); WHITE BLOOD COUNT 9.8 10^3/uL (4.0-10.0)
[2021-08-07 06:04] LABS: BLOOD UREA NITROGEN 24 MG/DL (7-18); CALCIUM LEVEL 9.3 MG/DL (8.8-10.2); CARBON DIOXIDE LEVEL 34 MEQ/L (21-32); CHLORIDE LEVEL 100 MEQ/L (98-107); CREATININE FOR GFR 0.99 MG/DL (0.70-1.30); GLOMERULAR FILTRATION RATE > 60.0 (>35); GLUCOSE, FASTING 133 MG/DL (70-100); POTASSIUM SERUM 3.8 MEQ/L (3.5-5.1); SODIUM LEVEL 137 MEQ/L (136-145)
[2021-08-07] MEDS: COMBIVENT RESPIMAT 100-20MCG INHALER 4GM INH SCH ×2 (07:16→11:00)
[2021-08-07 07:33] VITALS: BP 140/72
[2021-08-07] MEDS: MULTIVITAMINS/MINERALS THERAP 1 TAB PO SCH (08:49)
[2021-08-07] MEDS: POTASSIUM CHLORIDE 10MEQ SR TABLET PO SCH (08:49)
[2021-08-07] MEDS: HumaLOG INSULIN (NovoLOG) PER UNIT SC SCH ×2 (08:49→13:02)
[2021-08-07] MEDS: FINASTERIDE 5 MG TAB PO SCH (08:49)
[2021-08-07] MEDS: ACETAMINOPHEN TAB 650MG DOSE (2X325MG) PO SCH (08:50)
[2021-08-07] MEDS: NORCO, ANEXSIA 5/325MG TABLET (HYDROcodone/ACETAMINOPHEN) PO SCH (08:50)
[2021-08-07 08:51] VITALS: BP 140/72
[2021-08-07] MEDS: CYANOCOBALAMIN 500 MCG TAB PO SCH (08:51)
[2021-08-07] MEDS: APIXABAN 5 MG TAB (ELIQUIS) PO SCH (08:51)
[2021-08-07] MEDS: VITAMIN D 1,000 INTERNATIONAL UNITS TABLET PO SCH (08:51)
[2021-08-07] MEDS: NYSTATIN 100,000 UNITS/GM TOPICAL PWD 15 GM TOP SCH (08:52)
[2021-08-07] MEDS ORDERED: amLODIPine 5 MG TAB PO SCH (09:00)
[2021-08-07] MEDS ORDERED: FURO40TA2 PO (09:33)
[2021-08-07 12:30] VITALS: BP 168/85
[2021-08-08] MEDS ORDERED: FUROSEMIDE 40 MG TAB PO SCH (09:00)
== END 2021-08-07 14:02 | disposition home health service (06) | DRG 291 ==
LOC: M ED 13:02 → M ED INP 16:27 → ENRESERV 20:03 → M PCU 21:01
PROVIDERS: ADMIT General Practice; ATTEND Internal Medicine
DX: I11.0 Hypertensive heart disease with heart failure (principal); I50.33 Acute on chronic diastolic (congestive) heart failure; J96.11 Chronic respiratory failure with hypoxia; I48.20 Chronic atrial fibrillation, unspecified; I25.10 Atherosclerotic heart disease of native coronary artery without angina pectoris; I36.1 Nonrheumatic tricuspid (valve) insufficiency; N40.0 Benign prostatic hyperplasia without lower urinary tract symptoms; E78.5 Hyperlipidemia, unspecified; E11.42 Type 2 diabetes mellitus with diabetic polyneuropathy; F32.A Depression, unspecified; I27.20 Pulmonary hypertension, unspecified; Z95.1 Presence of aortocoronary bypass graft; Z95.0 Presence of cardiac pacemaker; Z79.01 Long term (current) use of anticoagulants; Z79.84 Long term (current) use of oral hypoglycemic drugs; Z20.822 Contact with and (suspected) exposure to COVID-19; Z99.81 Dependence on supplemental oxygen; Z79.891 Long term (current) use of opiate analgesic; Z79.899 Other long term (current) drug therapy

== ENCOUNTER 2021-12-08 16:23 | Observation (INO) | payer OTHER ==
[~2021-12-08] VITALS: Ht 182.9 cm; Wt 73.9 kg
[~2021-12-08 16:23] MED LIST changes: +FEXO-112 PO; -FEXO-4 PO; +FURO40TA2 PO; +ROSU20TA5 PO
[2021-12-08] MEDS ORDERED: ONDANSETRON 4MG 2ML VIAL IV ONE (17:25)
[2021-12-08] MEDS ORDERED: LIDOCAINE 5% (LIDODERM) PATCH TD ONE (17:25)
[2021-12-08] MEDS ORDERED: MORPHINE 4 MG/ML 1ML VIAL/SYRINGE IV ONE ×2 (17:25→19:55)
[2021-12-08] MEDS ORDERED: NS 1,000 ML IV ONE (17:25)
[2021-12-08 17:59] LABS: BASO # 0.1 10^3/uL (0.0-0.2); BASO % 0.7 % (0.0-1.0); EOS # 0.4 10^3/uL (0.0-0.5); HEMATOCRIT 48.5 % (42.0-52.0); HEMOGLOBIN 15.5 g/dl (13.5-17.5); LYMPH # 1.7 10^3/uL (1.5-5.0); LYMPH % 19.1 % (24.0-44.0); MEAN CORPUSCULAR HEMOGLOBIN 30.3 pg (27.0-33.0); MEAN CORPUSCULAR VOLUME 94.9 fl (80.0-96.0); MONO # 0.8 10^3/uL (0.0-0.8); MONO % 8.8 % (2.0-8.0); NEUTROPHILS # 6.1 10^3/uL (1.5-8.5); NEUTROPHILS % 67.1 % (36.0-66.0); PLATELET COUNT, AUTOMATED 158 10^3/uL (150-450); RED BLOOD COUNT 5.11 10^6/uL (4.30-6.10); WHITE BLOOD COUNT 9.1 10^3/uL (4.0-10.0)
[2021-12-08 19:02] LABS: ERYTHROCYTE SEDIMENTATION RATE 3 mm/hr (0-20)
[2021-12-08] MEDS ORDERED: ISOVUE-370 76% 100ML VIAL As Ordered ONE (19:22)
[2021-12-08 19:36] LABS: APPEARANCE, URINE HAZY (CLEAR); BACTERIA, URINE AUTO NEGATIVE (NEGATIVE); BILIRUBIN, URINE AUTO NEGATIVE (NEGATIVE); BLOOD, URINE BLOOD NEGATIVE (NEGATIVE); COLOR, URINE YELLOW (YELLOW); GLUCOSE, URINE (UA) AUTO 3+ mg/dL (NEGATIVE); KETONE, URINE AUTO NEGATIVE (NEGATIVE); LEUKOCYTE ESTERASE, URINE AUTO 2+ (NEGATIVE); NITRITE, URINE AUTO NEGATIVE (NEGATIVE); PROTEIN, URINE AUTO NEGATIVE (NEGATIVE); RBC, URINE AUTO 0 /HPF (0-3); SPECIFIC GRAVITY URINE AUTO 1.009 (1.002-1.035); SQUAMOUS EPITHELIAL CELL UR AU 0 /HPF (0-6); UROBILINOGEN, URINE AUTO 0.2 mg/dL (0.0-2.0); WBC, URINE AUTO 99 /HPF (0-3)
[2021-12-08 19:54] LABS: CK-MB VALUE MASS 1.9 NG/ML (<3.6); MB/CK RELATIVE INDEX 3.8 (< OR =4)
[2021-12-08] MEDS: DOCUSATE SODIUM 100MG CAPSULE PO SCH (21:00)
[2021-12-08] MEDS ORDERED: diazePAM 10MG/2ML SYRINGE (J3360 PER 5MG) IV ONE (21:05)
[2021-12-08 22:10] LABS: MB/CK RELATIVE INDEX 3.12 (< OR =4)
[2021-12-08] MEDS ORDERED: NORCO, ANEXSIA 5/325MG TABLET (HYDROcodone/ACETAMINOPHEN) PO ONE (22:35)
[2021-12-08] MEDS ORDERED: MOM 30ML SUSPENSION UDC PO PRN (23:00)
[2021-12-08] MEDS ORDERED: ACETAMINOPHEN TAB 650MG DOSE (2X325MG) PO PRN (23:00)
[2021-12-08] MEDS ORDERED: MAALOX 30 ML SUSP *UDC PO PRN (23:00)
[2021-12-08 23:16] LABS: RSV AMPLIFICATION NEGATIVE (NEGATIVE)
[2021-12-09] MEDS ORDERED: FOSFOMYCIN TROMETHAMINE 3 GM POWDER PACKET (MONUROL) PO ONE
[2021-12-09 01:01] VITALS: BP 116/60
[2021-12-09] MEDS ORDERED: NORCO, ANEXSIA 5/325MG TABLET (HYDROcodone/ACETAMINOPHEN) PO PRN (01:40)
[2021-12-09] MEDS: NORCO, ANEXSIA 5/325MG TABLET (HYDROcodone/ACETAMINOPHEN) PO PRN (02:48)
[2021-12-09 03:56] VITALS: BP 146/77
[2021-12-09] MEDS ORDERED: DEXTROSE 50% 50 ML SYRINGE IV PRN (04:15)
[2021-12-09] MEDS ORDERED: GLUCOSE 4GM CHEW TABLET PO PRN (04:15)
[2021-12-09] MEDS ORDERED: GLUCAGON INJ 1MG VIAL SC PRN (04:15)
[2021-12-09 05:44] LABS: HEMATOCRIT 44.5 % (42.0-52.0); HEMOGLOBIN 14.7 g/dl (13.5-17.5); MEAN CORPUSCULAR HEMOGLOBIN 31.1 pg (27.0-33.0); MEAN CORPUSCULAR VOLUME 94.1 fl (80.0-96.0); PLATELET COUNT, AUTOMATED 142 10^3/uL (150-450); RED BLOOD COUNT 4.73 10^6/uL (4.30-6.10); WHITE BLOOD COUNT 8.9 10^3/uL (4.0-10.0)
[2021-12-09] MEDS ORDERED: **NOTE PATIENT COMMENT** MISC XX ONE (06:00)
[2021-12-09 06:05] LABS: INR 1.22; PROTHROMBIN TIME 15.8 SECONDS (12.7-14.5)
[2021-12-09 06:06] LABS: PARTIAL THROMBOPLASTIN TIME 43.4 SECONDS (25.9-37.0)
[2021-12-09 06:11] LABS: BLOOD UREA NITROGEN 17 MG/DL (7-18); CALCIUM LEVEL 8.9 MG/DL (8.8-10.2); CARBON DIOXIDE LEVEL 29 MEQ/L (21-32); CHLORIDE LEVEL 104 MEQ/L (98-107); CREATININE FOR GFR 1.01 MG/DL (0.70-1.30); GLOMERULAR FILTRATION RATE > 60.0 (>35); GLUCOSE, FASTING 122 MG/DL (70-100); MAGNESIUM LEVEL 1.8 MG/DL (1.8-2.4); POTASSIUM SERUM 4.3 MEQ/L (3.5-5.1); SODIUM LEVEL 136 MEQ/L (136-145)
[2021-12-09] MEDS: INSULIN LISPRO (NovoLOG) PER UNIT SC SCH ×4 (07:30→21:00)
[2021-12-09 08:00] VITALS: BP 115/57
[2021-12-09] MEDS: DOCUSATE SODIUM 100MG CAPSULE PO SCH ×2 (08:31→21:04)
[2021-12-09] MEDS ORDERED: HYDR-4514 PO (09:05)
[2021-12-09] MEDS ORDERED: PATIENT COMMENT (09:05)
[2021-12-09] MEDS ORDERED: BUSP15TA47 PO (09:05)
[2021-12-09] MEDS ORDERED: FURO20TA2 PO (09:05)
[2021-12-09] MEDS ORDERED: HOME MED LIST COMPLETE! XX SCH (09:10)
[2021-12-09] MEDS: atenoloL 25 MG TAB PO SCH (09:38)
[2021-12-09] MEDS: APIXABAN 5 MG TAB (ELIQUIS) PO SCH ×2 (09:38→21:05)
[2021-12-09] MEDS: SENOKOT S TAB PO SCH ×2 (10:27→21:05)
[2021-12-09] MEDS: MOM 30ML SUSPENSION UDC PO SCH (10:27)
[2021-12-09] MEDS: busPIRone 5 MG TAB PO SCH (10:27)
[2021-12-09] MEDS: MAGNESIUM OXIDE 400MG TAB (MAG-OX) PO SCH (10:28)
[2021-12-09] MEDS: FINASTERIDE 5MG TAB PO SCH (11:51)
[2021-12-09 12:00] VITALS: BP 155/75
[2021-12-09 16:00] VITALS: BP 114/72
[2021-12-09] MEDS ORDERED: FLEET ENEMA PR PRN (19:00)
[2021-12-09] MEDS ORDERED: FLEET ENEMA PR ONE (19:10)
[2021-12-09 20:00] VITALS: BP 155/72
[2021-12-09] MEDS: BISACODYL 10 MG SUPP PR SCH (20:59)
[2021-12-09] MEDS: DONEPEZIL 5 MG TAB PO SCH (21:04)
[2021-12-09] MEDS: rOPINIRole 0.25 MG TAB(REQUIP) PO SCH (21:04)
[2021-12-09] MEDS: ROSUVASTATIN 10 MG TAB (CRESTOR) PO SCH (21:04)
[2021-12-09] MEDS: DULoxetine 30MG CAPSULE (CYMBALTA) PO SCH (21:04)
[2021-12-10 04:00] VITALS: BP 145/83
[2021-12-10 06:22] LABS: BASO # 0.1 10^3/uL (0.0-0.2); BASO % 0.8 % (0.0-1.0); EOS # 0.5 10^3/uL (0.0-0.5); EOS % 6.1 % (0.0-3.0); HEMATOCRIT 45.5 % (42.0-52.0); HEMOGLOBIN 15.1 g/dl (13.5-17.5); LYMPH # 1.5 10^3/uL (1.5-5.0); LYMPH % 18.6 % (24.0-44.0); MEAN CORPUSCULAR HEMOGLOBIN 30.4 pg (27.0-33.0); MEAN CORPUSCULAR HGB CONC 33.2 g/dl (32.0-36.5); MEAN CORPUSCULAR VOLUME 91.5 fl (80.0-96.0); MONO # 0.8 10^3/uL (0.0-0.8); MONO % 10.2 % (2.0-8.0); NEUTROPHILS % 63.9 % (36.0-66.0); PLATELET COUNT, AUTOMATED 150 10^3/uL (150-450); RED BLOOD COUNT 4.97 10^6/uL (4.30-6.10); WHITE BLOOD COUNT 7.8 10^3/uL (4.0-10.0)
[2021-12-10 06:48] LABS: BLOOD UREA NITROGEN 19 MG/DL (7-18); CALCIUM LEVEL 9.6 MG/DL (8.8-10.2); CARBON DIOXIDE LEVEL 27 MEQ/L (21-32); CHLORIDE LEVEL 105 MEQ/L (98-107); CREATININE FOR GFR 0.83 MG/DL (0.70-1.30); GLOMERULAR FILTRATION RATE > 60.0 (>35); GLUCOSE, FASTING 167 MG/DL (70-100); POTASSIUM SERUM 4.4 MEQ/L (3.5-5.1); SODIUM LEVEL 135 MEQ/L (136-145)
[2021-12-10 08:00] VITALS: BP 157/79
[2021-12-10] MEDS ORDERED: ACET-907 PO (08:49)
[2021-12-10] MEDS ORDERED: RA S8.6T3 PO (08:49)
[2021-12-10] MEDS ORDERED: HYDR-4514 PO (08:49)
[2021-12-10] MEDS: APIXABAN 5 MG TAB (ELIQUIS) PO SCH ×2 (08:59→21:18)
[2021-12-10] MEDS: SENOKOT S TAB PO SCH ×2 (08:59→21:18)
[2021-12-10] MEDS: DOCUSATE SODIUM 100MG CAPSULE PO SCH ×2 (08:59→21:18)
[2021-12-10] MEDS: MAGNESIUM OXIDE 400MG TAB (MAG-OX) PO SCH (09:00)
[2021-12-10] MEDS: atenoloL 25 MG TAB PO SCH (09:00)
[2021-12-10] MEDS: busPIRone 5 MG TAB PO SCH (09:00)
[2021-12-10] MEDS: MOM 30ML SUSPENSION UDC PO SCH (09:00)
[2021-12-10] MEDS: BISACODYL 10 MG SUPP PR SCH ×2 (09:00→21:00)
[2021-12-10] MEDS: FINASTERIDE 5MG TAB PO SCH (09:00)
[2021-12-10] MEDS: INSULIN LISPRO (NovoLOG) PER UNIT SC SCH ×4 (09:10→21:00)
[2021-12-10 16:15] VITALS: BP 167/87
[2021-12-10 20:00] VITALS: BP 162/78
[2021-12-10] MEDS: DULoxetine 30MG CAPSULE (CYMBALTA) PO SCH (21:18)
[2021-12-10] MEDS: ROSUVASTATIN 10 MG TAB (CRESTOR) PO SCH (21:18)
[2021-12-10] MEDS: rOPINIRole 0.25 MG TAB(REQUIP) PO SCH (21:18)
[2021-12-10] MEDS: DONEPEZIL 5 MG TAB PO SCH (21:18)
[2021-12-10] MEDS: NORCO, ANEXSIA 5/325MG TABLET (HYDROcodone/ACETAMINOPHEN) PO PRN (23:13)
[2021-12-11 04:00] VITALS: BP 146/51
[2021-12-11 06:28] LABS: BASO # 0.1 10^3/uL (0.0-0.2); BASO % 0.7 % (0.0-1.0); EOS # 0.5 10^3/uL (0.0-0.5); EOS % 5.1 % (0.0-3.0); HEMATOCRIT 46.1 % (42.0-52.0); HEMOGLOBIN 15.1 g/dl (13.5-17.5); LYMPH # 1.6 10^3/uL (1.5-5.0); LYMPH % 17.8 % (24.0-44.0); MEAN CORPUSCULAR HEMOGLOBIN 30.5 pg (27.0-33.0); MEAN CORPUSCULAR HGB CONC 32.8 g/dl (32.0-36.5); MEAN CORPUSCULAR VOLUME 93.1 fl (80.0-96.0); MONO # 0.9 10^3/uL (0.0-0.8); MONO % 9.3 % (2.0-8.0); NEUTROPHILS # 6.1 10^3/uL (1.5-8.5); NEUTROPHILS % 66.8 % (36.0-66.0); PLATELET COUNT, AUTOMATED 158 10^3/uL (150-450); RED BLOOD COUNT 4.95 10^6/uL (4.30-6.10); WHITE BLOOD COUNT 9.2 10^3/uL (4.0-10.0)
[2021-12-11 06:56] LABS: BLOOD UREA NITROGEN 21 MG/DL (7-18); CALCIUM LEVEL 9.2 MG/DL (8.8-10.2); CARBON DIOXIDE LEVEL 27 MEQ/L (21-32); CHLORIDE LEVEL 102 MEQ/L (98-107); GLOMERULAR FILTRATION RATE > 60.0 (>35); GLUCOSE, FASTING 193 MG/DL (70-100); POTASSIUM SERUM 4.4 MEQ/L (3.5-5.1); SODIUM LEVEL 136 MEQ/L (136-145)
[2021-12-11] MEDS: INSULIN LISPRO (NovoLOG) PER UNIT SC SCH (08:31)
[2021-12-11 08:32] VITALS: BP 122/83
[2021-12-11] MEDS: MAGNESIUM OXIDE 400MG TAB (MAG-OX) PO SCH (08:32)
[2021-12-11] MEDS: atenoloL 25 MG TAB PO SCH (08:32)
[2021-12-11] MEDS: APIXABAN 5 MG TAB (ELIQUIS) PO SCH (08:32)
[2021-12-11] MEDS: busPIRone 5 MG TAB PO SCH (08:32)
[2021-12-11] MEDS: SENOKOT S TAB PO SCH (08:33)
[2021-12-11] MEDS: BISACODYL 10 MG SUPP PR SCH (08:33)
[2021-12-11] MEDS: DOCUSATE SODIUM 100MG CAPSULE PO SCH (08:33)
[2021-12-11] MEDS: MOM 30ML SUSPENSION UDC PO SCH (08:33)
[2021-12-11] MEDS: FINASTERIDE 5MG TAB PO SCH (08:33)
== END 2021-12-11 10:40 | disposition home health service (06) ==
LOC: M ED 16:23 → M ED INP 16:24 → ENRESERV 12-09 → M PCU 12-09 00:54
PROVIDERS: ADMIT Internal Medicine; ATTEND Internal Medicine Nephrology
DX: U07.1 COVID-19 (principal); M54.9 Dorsalgia, unspecified; G89.29 Other chronic pain; R26.2 Difficulty in walking, not elsewhere classified; K59.00 Constipation, unspecified; Z99.3 Dependence on wheelchair; J98.11 Atelectasis; R91.8 Other nonspecific abnormal finding of lung field; S32.019 Unspecified fracture of first lumbar vertebra; M48.10 Ankylosing hyperostosis [Forestier], site unspecified; M41.9 Scoliosis, unspecified; E11.9 Type 2 diabetes mellitus without complications; F03.90 Unspecified dementia, unspecified severity, without behavioral disturbance, psychotic disturbance, mood disturbance, and anxiety; I25.10 Atherosclerotic heart disease of native coronary artery without angina pectoris; Z95.1 Presence of aortocoronary bypass graft; I50.30 Unspecified diastolic (congestive) heart failure; I48.91 Unspecified atrial fibrillation; I11.0 Hypertensive heart disease with heart failure; I49.5 Sick sinus syndrome; J44.9 Chronic obstructive pulmonary disease, unspecified; N40.0 Benign prostatic hyperplasia without lower urinary tract symptoms; I27.20 Pulmonary hypertension, unspecified; G47.33 Obstructive sleep apnea (adult) (pediatric); Z86.718 Personal history of other venous thrombosis and embolism; I71.2 Thoracic aortic aneurysm, without rupture; Z87.442 Personal history of urinary calculi; N20.0 Calculus of kidney; K57.90 Diverticulosis of intestine, part unspecified, without perforation or abscess without bleeding; R59.0 Localized enlarged lymph nodes; Z79.899 Other long term (current) drug therapy; Z79.01 Long term (current) use of anticoagulants; Z79.84 Long term (current) use of oral hypoglycemic drugs
CPT/HCPCS: 36415; 71260; 72128; 72131; 74177; 80047; 80048; 81001; 82550; 82553; 83735; 84484; 85025; 85027; 85610; 85652; 85730; 86140; 87086; 87631; 93005; 96361; 96374; 96375; 97161; 97165; 97530; 97535; 99284; G0378; J1815; J2270; J2405; J3360; Q9967

== ENCOUNTER → 2022-01-30 | Outpatient (CLI) | payer OTHER ==
[~2022-01-30] MED LIST changes: +BUSP15TA47 PO; +FURO20TA2 PO; +HYDR-4514 PO
== END ==
LOC: M PAIN 13:00
PROVIDERS: ATTEND Nurse Practitioner Family
DX: M79.10 Myalgia, unspecified site (principal); E11.9 Type 2 diabetes mellitus without complications; F03.90 Unspecified dementia, unspecified severity, without behavioral disturbance, psychotic disturbance, mood disturbance, and anxiety; I25.2 Old myocardial infarction; Z95.0 Presence of cardiac pacemaker; Z87.891 Personal history of nicotine dependence; Z79.01 Long term (current) use of anticoagulants; Z79.899 Other long term (current) drug therapy

== ENCOUNTER → 2022-02-23 | Outpatient (REF) ==
[2022-02-23 03:32] LABS: APPEARANCE, URINE MANUAL HAZY (CLEAR); COLOR, URINE MANUAL YELLOW (YELLOW)
[2022-02-23 03:33] LABS: GLUCOSE, URINE (UA) MANUAL 4+(1000 MG/DL) mg/dL (NEGATIVE); PROTEIN, URINE MANUAL NEGATIVE (NEGATIVE); SPECIFIC GRAVITY,URINE MANUAL 1.015 (1.002-1.035)
[2022-02-23 03:34] LABS: BILIRUBIN, URINE MANUAL NEGATIVE (NEGATIVE); BLOOD URINE MANUAL POSITIVE (NEGATIVE); KETONE, URINE MANUAL NEGATIVE (NEGATIVE); LEUKOCYTE ESTERASE, URINE MAN POSITIVE (NEGATIVE); NITRITE, URINE MANUAL NEGATIVE (NEGATIVE); UROBILINOGEN, URINE MANUAL NORMAL (NORMAL)
[2022-02-23 03:40] LABS: BACTERIA, URINE SMALL AMOUNT; HYALINE CAST, URINE NONE SEEN /lpf (0-1); SQUAMOUS EPITHELIAL CELL URINE SMALL AMOUNT /hpf (SMALL AMT); TRANSITIONAL EPI CELLS, URINE SMALL AMOUNT /hpf; WBC, URINE 40-50 /hpf (0-3)
[2022-02-23 03:41] LABS: MUCUS, URINE SMALL AMOUNT (NEGATIVE); YEAST, URINE SMALL AMOUNT
[2022-02-23 10:15] LABS: BASO % 0.5 % (0.0-1.0); EOS # 0.3 10^3/uL (0.0-0.5); EOS % 4.2 % (0.0-3.0); HEMATOCRIT 45.6 % (42.0-52.0); HEMOGLOBIN 14.7 g/dl (13.5-17.5); LYMPH # 1.7 10^3/uL (1.5-5.0); LYMPH % 21.1 % (24.0-44.0); MEAN CORPUSCULAR HEMOGLOBIN 30.7 pg (27.0-33.0); MEAN CORPUSCULAR HGB CONC 32.2 g/dl (32.0-36.5); MEAN CORPUSCULAR VOLUME 95.2 fl (80.0-96.0); MONO # 0.8 10^3/uL (0.0-0.8); MONO % 9.6 % (2.0-8.0); NEUTROPHILS # 5.2 10^3/uL (1.5-8.5); NEUTROPHILS % 64.1 % (36.0-66.0); PLATELET COUNT, AUTOMATED 194 10^3/uL (150-450); RED BLOOD COUNT 4.79 10^6/uL (4.30-6.10); WHITE BLOOD COUNT 8.1 10^3/uL (4.0-10.0)
[2022-02-23 10:38] LABS: HEMOGLOBIN A1c 6.7 %
[2022-02-23 10:52] LABS: ALT/SGPT 24 U/L (12-78); BILIRUBIN,TOTAL 0.5 MG/DL (0.2-1.0); BLOOD UREA NITROGEN 23 MG/DL (7-18); CALCIUM LEVEL 9.5 MG/DL (8.8-10.2); CARBON DIOXIDE LEVEL 28 MEQ/L (21-32); CHLORIDE LEVEL 101 MEQ/L (98-107); CREATININE FOR GFR 1.04 MG/DL (0.70-1.30); GLOMERULAR FILTRATION RATE > 60.0 (>35); GLUCOSE, FASTING 103 MG/DL (70-100); POTASSIUM SERUM 4.1 MEQ/L (3.5-5.1); SODIUM LEVEL 135 MEQ/L (136-145); TOTAL PROTEIN 7.6 GM/DL (6.4-8.2)
[2022-02-23 10:53] LABS: ALBUMIN 3.7 GM/DL (3.2-5.2)
== END ==
LOC: SKLAB4 03:00
PROVIDERS: ATTEND Nurse Practitioner Family
DX: E11.9 Type 2 diabetes mellitus without complications (principal)

== ENCOUNTER → 2022-03-20 | Outpatient (CLI) | payer MEDICARE, OTHER | LOC: M SOG 07:56 | PROVIDERS: ATTEND Orthopaedic Surgery | DX: Z53.9 Procedure and treatment not carried out, unspecified reason (principal) ==

== ENCOUNTER → 2022-04-06 | Outpatient (REF) | payer OTHER, MEDICARE ==
[~2022-04-06] MED LIST changes: +CLOP75TA99 PO; -PLAV1TAB2 PO
== END ==
LOC: SKLAB4 09:57
PROVIDERS: ATTEND Nurse Practitioner Family
DX: Z01.818 Encounter for other preprocedural examination (principal); Z20.822 Contact with and (suspected) exposure to COVID-19

== ENCOUNTER → 2022-04-27 | Outpatient (REF) | payer OTHER, MEDICARE | LOC: SKLAB4 09:11 | PROVIDERS: ATTEND Nurse Practitioner Family | DX: Z01.818 Encounter for other preprocedural examination (principal); Z20.822 Contact with and (suspected) exposure to COVID-19 ==

== ENCOUNTER → 2022-04-28 | Outpatient (CLI) | payer OTHER | LOC: M PAIN 08:15 | PROVIDERS: ATTEND Anesthesiology | DX: M54.50 Low back pain, unspecified (principal); D64.9 Anemia, unspecified; N40.0 Benign prostatic hyperplasia without lower urinary tract symptoms; I50.9 Heart failure, unspecified; F03.90 Unspecified dementia, unspecified severity, without behavioral disturbance, psychotic disturbance, mood disturbance, and anxiety; E78.2 Mixed hyperlipidemia; I25.2 Old myocardial infarction; I48.91 Unspecified atrial fibrillation; J30.2 Other seasonal allergic rhinitis; Z95.0 Presence of cardiac pacemaker; E11.9 Type 2 diabetes mellitus without complications; Z95.1 Presence of aortocoronary bypass graft; Z87.891 Personal history of nicotine dependence; Z79.891 Long term (current) use of opiate analgesic; Z79.899 Other long term (current) drug therapy; Z79.01 Long term (current) use of anticoagulants; Z79.84 Long term (current) use of oral hypoglycemic drugs; Z88.1 Allergy status to other antibiotic agents; Z88.8 Allergy status to other drugs, medicaments and biological substances ==

== ENCOUNTER → 2022-04-28 | Outpatient (REF) | payer OTHER, MEDICARE | LOC: SKLAB4 00:05 | PROVIDERS: ATTEND Internal Medicine | DX: Z01.818 Encounter for other preprocedural examination (principal); Z20.822 Contact with and (suspected) exposure to COVID-19 ==

== ENCOUNTER → 2022-07-27 | Outpatient (CLI) | payer MEDICARE, OTHER | LOC: M PAIN 10:15 | PROVIDERS: ATTEND Nurse Practitioner Family | DX: M79.10 Myalgia, unspecified site (principal); F03.90 Unspecified dementia, unspecified severity, without behavioral disturbance, psychotic disturbance, mood disturbance, and anxiety; I25.2 Old myocardial infarction; Z95.0 Presence of cardiac pacemaker; Z87.891 Personal history of nicotine dependence; Z88.1 Allergy status to other antibiotic agents; Z88.8 Allergy status to other drugs, medicaments and biological substances; Z79.01 Long term (current) use of anticoagulants; Z79.899 Other long term (current) drug therapy ==

== ENCOUNTER → 2022-08-12 | Outpatient (REF) | payer MEDICARE, OTHER ==
[2022-08-12 01:54] LABS: APPEARANCE, URINE CLOUDY (CLEAR); BACTERIA, URINE AUTO NEGATIVE (NEGATIVE); BILIRUBIN, URINE AUTO NEGATIVE (NEGATIVE); BLOOD, URINE BLOOD 1+ (NEGATIVE); COLOR, URINE YELLOW (YELLOW); GLUCOSE, URINE (UA) AUTO 3+ mg/dL (NEGATIVE); KETONE, URINE AUTO NEGATIVE (NEGATIVE); LEUKOCYTE ESTERASE, URINE AUTO 3+ (NEGATIVE); MUCUS, URINE SMALL (NEGATIVE); NITRITE, URINE AUTO NEGATIVE (NEGATIVE); PROTEIN, URINE AUTO 1+ mg/dL (NEGATIVE); RBC, URINE AUTO 15 /HPF (0-3); SPECIFIC GRAVITY URINE AUTO 1.022 (1.002-1.035); SQUAMOUS EPITHELIAL CELL UR AU 1 /HPF (0-6); UROBILINOGEN, URINE AUTO 0.2 mg/dL (0.0-2.0); WBC, URINE AUTO TNTC /HPF (0-3)
[2022-08-12 09:08] LABS: BASO # 0.1 10^3/uL (0.0-0.2); BASO % 0.6 % (0.0-1.0); EOS # 0.4 10^3/uL (0.0-0.5); EOS % 3.8 % (0.0-3.0); HEMATOCRIT 45.8 % (42.0-52.0); HEMOGLOBIN 14.7 g/dl (13.5-17.5); LYMPH # 1.5 10^3/uL (1.5-5.0); LYMPH % 13.9 % (24.0-44.0); MEAN CORPUSCULAR HEMOGLOBIN 30.5 pg (27.0-33.0); MEAN CORPUSCULAR HGB CONC 32.1 g/dl (32.0-36.5); MONO # 1.2 10^3/uL (0.0-0.8); MONO % 11.2 % (2.0-8.0); NEUTROPHILS # 7.4 10^3/uL (1.5-8.5); NEUTROPHILS % 69.9 % (36.0-66.0); PLATELET COUNT, AUTOMATED 213 10^3/uL (150-450); RED BLOOD COUNT 4.82 10^6/uL (4.30-6.10); WHITE BLOOD COUNT 10.5 10^3/uL (4.0-10.0)
[2022-08-12 09:30] LABS: HEMOGLOBIN A1c 6.8 % (4.0-6.0)
[2022-08-12 09:32] LABS: ALBUMIN 3.5 G/DL (3.2-5.2); ALKALINE PHOSPHATASE 95 U/L (46-116); ALT/SGPT 15 U/L (7.0-40); AST/SGOT 12 U/L (<34); BILIRUBIN,TOTAL 0.8 MG/DL (0.3-1.2); BLOOD UREA NITROGEN 21 MG/DL (9-23); CALCIUM LEVEL 9.3 MG/DL (8.3-10.6); CARBON DIOXIDE LEVEL 30 MMOL/L (20-31); CHLORIDE LEVEL 101 MMOL/L (98-107); CREATININE FOR GFR 0.77 MG/DL (0.70-1.30); GLOMERULAR FILTRATION RATE > 60.0 (>35); GLUCOSE, FASTING 133 MG/DL (74-106); POTASSIUM SERUM 4.2 MMOL/L (3.5-5.1); SODIUM LEVEL 135 MMOL/L (136-145); TOTAL PROTEIN 7.2 G/DL (5.7-8.2)
== END ==
LOC: SKLAB4 01:30
PROVIDERS: ATTEND Internal Medicine
DX: E11.9 Type 2 diabetes mellitus without complications (principal)

== ENCOUNTER → 2022-08-31 | Outpatient (CLI) | payer MEDICARE, OTHER ==
[~2022-08-31] MED LIST changes: +ARTIDRO4 OU; +FLUT50SP17 NARES; -FLUTISP NARES; -POLYOPD OU
== END ==
LOC: M PAIN 10:30
PROVIDERS: ATTEND Nurse Practitioner Family
DX: M79.18 Myalgia, other site (principal); D64.9 Anemia, unspecified; N40.0 Benign prostatic hyperplasia without lower urinary tract symptoms; I50.9 Heart failure, unspecified; F03.90 Unspecified dementia, unspecified severity, without behavioral disturbance, psychotic disturbance, mood disturbance, and anxiety; M54.50 Low back pain, unspecified; E78.2 Mixed hyperlipidemia; I25.5 Ischemic cardiomyopathy; I48.91 Unspecified atrial fibrillation; Z95.0 Presence of cardiac pacemaker; E11.9 Type 2 diabetes mellitus without complications; G89.29 Other chronic pain; Z87.891 Personal history of nicotine dependence; Z79.891 Long term (current) use of opiate analgesic; Z79.01 Long term (current) use of anticoagulants; Z79.84 Long term (current) use of oral hypoglycemic drugs; Z79.899 Other long term (current) drug therapy; Z88.1 Allergy status to other antibiotic agents; Z88.8 Allergy status to other drugs, medicaments and biological substances

== ENCOUNTER → 2022-09-22 | Outpatient (CLI) | payer MEDICARE, OTHER ==
[~2022-09-22] MED LIST changes: +BUPIVACAINE HCL 0.25% 10ML VIAL As Ordered ONE; +BUPIVACAINE HCL 0.25% 30ML VIAL As Ordered ONE; +TRIAMCINOLONE ACETONIDE SUSP 40MG/ML 1ML VIAL As Ordered ONE
== END ==
LOC: M PAIN 07:45
PROVIDERS: ATTEND Anesthesiology
DX: M79.18 Myalgia, other site (principal); D64.9 Anemia, unspecified; N40.0 Benign prostatic hyperplasia without lower urinary tract symptoms; I50.9 Heart failure, unspecified; F03.90 Unspecified dementia, unspecified severity, without behavioral disturbance, psychotic disturbance, mood disturbance, and anxiety; E78.2 Mixed hyperlipidemia; I25.2 Old myocardial infarction; I48.91 Unspecified atrial fibrillation; Z95.0 Presence of cardiac pacemaker; E11.9 Type 2 diabetes mellitus without complications; Z87.891 Personal history of nicotine dependence; Z79.84 Long term (current) use of oral hypoglycemic drugs; Z79.01 Long term (current) use of anticoagulants; Z79.891 Long term (current) use of opiate analgesic; Z79.899 Other long term (current) drug therapy; Z88.1 Allergy status to other antibiotic agents; Z88.8 Allergy status to other drugs, medicaments and biological substances
CPT/HCPCS: 20552; J3301

== ENCOUNTER → 2022-10-13 | Outpatient (CLI) | payer MEDICARE, OTHER ==
[~2022-10-13] MED LIST changes: -BUPIVACAINE HCL 0.25% 10ML VIAL As Ordered ONE; -BUPIVACAINE HCL 0.25% 30ML VIAL As Ordered ONE; -TRIAMCINOLONE ACETONIDE SUSP 40MG/ML 1ML VIAL As Ordered ONE
== END ==
LOC: M PAIN 10:30
PROVIDERS: ATTEND Nurse Practitioner Family
DX: M79.18 Myalgia, other site (principal); G89.29 Other chronic pain; D64.9 Anemia, unspecified; N40.0 Benign prostatic hyperplasia without lower urinary tract symptoms; I50.9 Heart failure, unspecified; F03.90 Unspecified dementia, unspecified severity, without behavioral disturbance, psychotic disturbance, mood disturbance, and anxiety; M54.50 Low back pain, unspecified; E78.2 Mixed hyperlipidemia; I25.2 Old myocardial infarction; I48.91 Unspecified atrial fibrillation; E11.9 Type 2 diabetes mellitus without complications; J30.2 Other seasonal allergic rhinitis; M25.511 Pain in right shoulder; M25.512 Pain in left shoulder; Z95.0 Presence of cardiac pacemaker; Z87.891 Personal history of nicotine dependence; Z79.891 Long term (current) use of opiate analgesic; Z79.01 Long term (current) use of anticoagulants; Z79.84 Long term (current) use of oral hypoglycemic drugs; Z79.899 Other long term (current) drug therapy; Z88.1 Allergy status to other antibiotic agents; Z88.8 Allergy status to other drugs, medicaments and biological substances

== ENCOUNTER → 2022-11-10 | Outpatient (CLI) | payer MEDICARE, OTHER ==
[~2022-11-10] MED LIST changes: -K-TA10TA2 PO; +POTA-165 PO; -ROSU20TA5 PO; +ROSU20TA61 PO; +TRIAMCINOLONE ACETONIDE SUSP 40MG/ML 1ML VIAL As Ordered ONE
== END ==
LOC: M PAIN 08:15
PROVIDERS: ATTEND Anesthesiology
DX: M79.18 Myalgia, other site (principal); D64.9 Anemia, unspecified; N40.0 Benign prostatic hyperplasia without lower urinary tract symptoms; I50.9 Heart failure, unspecified; F03.90 Unspecified dementia, unspecified severity, without behavioral disturbance, psychotic disturbance, mood disturbance, and anxiety; E78.2 Mixed hyperlipidemia; I25.2 Old myocardial infarction; I48.91 Unspecified atrial fibrillation; Z95.0 Presence of cardiac pacemaker; E11.9 Type 2 diabetes mellitus without complications; M54.50 Low back pain, unspecified; G89.29 Other chronic pain; M25.561 Pain in right knee; M25.562 Pain in left knee; M25.511 Pain in right shoulder; M25.512 Pain in left shoulder; Z87.891 Personal history of nicotine dependence; Z79.891 Long term (current) use of opiate analgesic; Z79.84 Long term (current) use of oral hypoglycemic drugs; Z79.899 Other long term (current) drug therapy; Z88.1 Allergy status to other antibiotic agents; Z88.8 Allergy status to other drugs, medicaments and biological substances; J30.2 Other seasonal allergic rhinitis
CPT/HCPCS: 20552; J3301

== ENCOUNTER → 2022-12-11 | Outpatient (CLI) | payer MEDICARE, OTHER ==
[~2022-12-11] MED LIST changes: -ROPI0.253 PO; +ROPI5TAB19 PO; -TRIAMCINOLONE ACETONIDE SUSP 40MG/ML 1ML VIAL As Ordered ONE
== END ==
LOC: M PAIN 10:45
PROVIDERS: ATTEND Nurse Practitioner Family
DX: M79.18 Myalgia, other site (principal); D64.9 Anemia, unspecified; N40.0 Benign prostatic hyperplasia without lower urinary tract symptoms; I50.9 Heart failure, unspecified; F03.90 Unspecified dementia, unspecified severity, without behavioral disturbance, psychotic disturbance, mood disturbance, and anxiety; M54.50 Low back pain, unspecified; E78.2 Mixed hyperlipidemia; I25.2 Old myocardial infarction; I48.91 Unspecified atrial fibrillation; E11.9 Type 2 diabetes mellitus without complications; M25.511 Pain in right shoulder; M25.512 Pain in left shoulder; M25.561 Pain in right knee; M25.562 Pain in left knee; G89.29 Other chronic pain; Z95.0 Presence of cardiac pacemaker; Z95.1 Presence of aortocoronary bypass graft; Z87.891 Personal history of nicotine dependence; Z79.891 Long term (current) use of opiate analgesic; Z79.84 Long term (current) use of oral hypoglycemic drugs; Z79.899 Other long term (current) drug therapy; Z88.1 Allergy status to other antibiotic agents; Z88.8 Allergy status to other drugs, medicaments and biological substances

== ENCOUNTER → 2023-01-15 | Outpatient (CLI) | payer MEDICARE, OTHER ==
[~2023-01-15] MED LIST changes: +DICL100G10 TOP; -DICL1GEL3 TOP
== END ==
LOC: M PAIN 09:15
PROVIDERS: ATTEND Nurse Practitioner Family
DX: M79.18 Myalgia, other site (principal); G89.29 Other chronic pain; D64.9 Anemia, unspecified; N40.0 Benign prostatic hyperplasia without lower urinary tract symptoms; F03.90 Unspecified dementia, unspecified severity, without behavioral disturbance, psychotic disturbance, mood disturbance, and anxiety; I50.9 Heart failure, unspecified; M54.50 Low back pain, unspecified; E78.2 Mixed hyperlipidemia; I25.2 Old myocardial infarction; J30.2 Other seasonal allergic rhinitis; I48.91 Unspecified atrial fibrillation; Z95.0 Presence of cardiac pacemaker; Z87.891 Personal history of nicotine dependence; Z79.891 Long term (current) use of opiate analgesic; Z79.84 Long term (current) use of oral hypoglycemic drugs; Z79.899 Other long term (current) drug therapy; Z88.1 Allergy status to other antibiotic agents; Z88.8 Allergy status to other drugs, medicaments and biological substances

== ENCOUNTER → 2023-01-27 | Outpatient (REF) | payer OTHER ==
[2023-01-27 13:03] LABS: HEMATOCRIT 51.8 % (42.0-52.0); HEMOGLOBIN 16.7 g/dl (13.5-17.5); MEAN CORPUSCULAR HEMOGLOBIN 30.8 pg (27.0-33.0); MEAN CORPUSCULAR HGB CONC 32.2 g/dl (32.0-36.5); MEAN CORPUSCULAR VOLUME 95.6 fl (80.0-96.0); PLATELET COUNT, AUTOMATED 241 10^3/uL (150-450); RED BLOOD COUNT 5.42 10^6/uL (4.30-6.10); WHITE BLOOD COUNT 10.2 10^3/uL (4.0-10.0)
[2023-01-27 13:36] LABS: ALBUMIN 3.9 G/DL (3.2-5.2); ALKALINE PHOSPHATASE 94 U/L (46-116); ALT/SGPT 13 U/L (7.0-40); AST/SGOT 9 U/L (<34); BILIRUBIN,TOTAL 0.6 MG/DL (0.3-1.2); BLOOD UREA NITROGEN 13 MG/DL (9-23); CALCIUM LEVEL 9.6 MG/DL (8.3-10.6); CARBON DIOXIDE LEVEL 27 MMOL/L (20-31); CHLORIDE LEVEL 102 MMOL/L (98-107); CREATININE FOR GFR 0.87 MG/DL (0.70-1.30); GLOMERULAR FILTRATION RATE > 60.0 (>35); GLUCOSE, FASTING 121 MG/DL (74-106); POTASSIUM SERUM 4.1 MMOL/L (3.5-5.1); SODIUM LEVEL 137 MMOL/L (136-145); TOTAL PROTEIN 7.9 G/DL (5.7-8.2)
== END ==
LOC: SKLAB4 12:29
PROVIDERS: ATTEND Internal Medicine
DX: R06.00 Dyspnea, unspecified (principal); I50.9 Heart failure, unspecified; Z95.0 Presence of cardiac pacemaker

== ENCOUNTER → 2023-02-09 | Outpatient (CLI) | payer MEDICARE, OTHER | LOC: M RAD 13:46 | PROVIDERS: ATTEND Family Medicine | DX: I73.9 Peripheral vascular disease, unspecified (principal) ==

== ENCOUNTER → 2023-02-17 | Outpatient (REF) | payer OTHER ==
[2023-02-17 02:38] LABS: APPEARANCE, URINE HAZY (CLEAR); BACTERIA, URINE AUTO NEGATIVE (NEGATIVE); BILIRUBIN, URINE AUTO NEGATIVE (NEGATIVE); BLOOD, URINE BLOOD NEGATIVE (NEGATIVE); COLOR, URINE YELLOW (YELLOW); GLUCOSE, URINE (UA) AUTO 3+ mg/dL (NEGATIVE); KETONE, URINE AUTO NEGATIVE (NEGATIVE); LEUKOCYTE ESTERASE, URINE AUTO 3+ (NEGATIVE); NITRITE, URINE AUTO NEGATIVE (NEGATIVE); PROTEIN, URINE AUTO NEGATIVE (NEGATIVE); RBC, URINE AUTO 13 /HPF (0-3); SPECIFIC GRAVITY URINE AUTO 1.023 (1.002-1.035); SQUAMOUS EPITHELIAL CELL UR AU 1 /HPF (0-6); UROBILINOGEN, URINE AUTO 0.2 mg/dL (0.0-2.0); WBC, URINE AUTO TNTC /HPF (0-3)
[2023-02-17 08:38] LABS: BASO # 0.1 10^3/uL (0.0-0.2); EOS # 0.5 10^3/uL (0.0-0.5); EOS % 7.2 % (0.0-3.0); HEMATOCRIT 49.8 % (42.0-52.0); HEMOGLOBIN 16.3 g/dl (13.5-17.5); LYMPH # 1.1 10^3/uL (1.5-5.0); LYMPH % 14.3 % (24.0-44.0); MEAN CORPUSCULAR HEMOGLOBIN 31.2 pg (27.0-33.0); MEAN CORPUSCULAR HGB CONC 32.7 g/dl (32.0-36.5); MEAN CORPUSCULAR VOLUME 95.4 fl (80.0-96.0); MONO # 0.9 10^3/uL (0.0-0.8); MONO % 12.1 % (2.0-8.0); NEUTROPHILS # 4.8 10^3/uL (1.5-8.5); NEUTROPHILS % 64.6 % (36.0-66.0); PLATELET COUNT, AUTOMATED 208 10^3/uL (150-450); RED BLOOD COUNT 5.22 10^6/uL (4.30-6.10); WHITE BLOOD COUNT 7.4 10^3/uL (4.0-10.0)
[2023-02-17 09:10] LABS: ALBUMIN 3.2 G/DL (3.2-5.2); ALKALINE PHOSPHATASE 78 U/L (46-116); ALT/SGPT 13 U/L (7.0-40); AST/SGOT 11 U/L (<34); BILIRUBIN,TOTAL 0.6 MG/DL (0.3-1.2); BLOOD UREA NITROGEN 21 MG/DL (9-23); CALCIUM LEVEL 9.4 MG/DL (8.3-10.6); CARBON DIOXIDE LEVEL 31 MMOL/L (20-31); CHLORIDE LEVEL 101 MMOL/L (98-107); CREATININE FOR GFR 0.89 MG/DL (0.70-1.30); GLOMERULAR FILTRATION RATE > 60.0 (>35); GLUCOSE, FASTING 119 MG/DL (74-106); POTASSIUM SERUM 4.8 MMOL/L (3.5-5.1); SODIUM LEVEL 136 MMOL/L (136-145); TOTAL PROTEIN 6.6 G/DL (5.7-8.2)
[2023-02-17 09:17] LABS: HEMOGLOBIN A1c 7.2 % (4.0-6.0)
== END ==
LOC: SKLAB4 08:08
PROVIDERS: ATTEND Internal Medicine
DX: E11.9 Type 2 diabetes mellitus without complications (principal)

== ENCOUNTER → 2023-03-08 | Outpatient (CLI) | payer MEDICARE, OTHER ==
[~2023-03-08] MED LIST changes: -CEFD300C41 PO; +CEFD300C42 PO; +TRIAMCINOLONE ACETONIDE SUSP 40MG/ML 1ML VIAL As Ordered ONE
== END ==
LOC: M PAIN 10:15
PROVIDERS: ATTEND Anesthesiology
DX: M79.12 Myalgia of auxiliary muscles, head and neck (principal); M79.18 Myalgia, other site; G89.29 Other chronic pain; D64.9 Anemia, unspecified; N40.0 Benign prostatic hyperplasia without lower urinary tract symptoms; I50.9 Heart failure, unspecified; F03.90 Unspecified dementia, unspecified severity, without behavioral disturbance, psychotic disturbance, mood disturbance, and anxiety; M54.50 Low back pain, unspecified; E78.2 Mixed hyperlipidemia; I25.2 Old myocardial infarction; I48.91 Unspecified atrial fibrillation; E11.9 Type 2 diabetes mellitus without complications; M25.511 Pain in right shoulder; M25.512 Pain in left shoulder; M25.561 Pain in right knee; M25.562 Pain in left knee; Z95.0 Presence of cardiac pacemaker; Z95.1 Presence of aortocoronary bypass graft; Z87.891 Personal history of nicotine dependence; Z79.891 Long term (current) use of opiate analgesic; Z79.84 Long term (current) use of oral hypoglycemic drugs; Z79.899 Other long term (current) drug therapy; Z88.1 Allergy status to other antibiotic agents; Z88.8 Allergy status to other drugs, medicaments and biological substances
CPT/HCPCS: 20552; J0665; J3301

== ENCOUNTER → 2023-04-16 | Outpatient (CLI) | payer MEDICARE, OTHER ==
[~2023-04-16] MED LIST changes: -TRIAMCINOLONE ACETONIDE SUSP 40MG/ML 1ML VIAL As Ordered ONE
== END ==
LOC: M PAIN 11:30
PROVIDERS: ATTEND Anesthesiology
DX: M79.18 Myalgia, other site (principal); M54.50 Low back pain, unspecified; E11.42 Type 2 diabetes mellitus with diabetic polyneuropathy; D64.9 Anemia, unspecified; Z95.0 Presence of cardiac pacemaker; N40.0 Benign prostatic hyperplasia without lower urinary tract symptoms; I50.9 Heart failure, unspecified; Z95.1 Presence of aortocoronary bypass graft; F03.90 Unspecified dementia, unspecified severity, without behavioral disturbance, psychotic disturbance, mood disturbance, and anxiety; E78.2 Mixed hyperlipidemia; I25.2 Old myocardial infarction; I48.91 Unspecified atrial fibrillation; G89.29 Other chronic pain; Z87.891 Personal history of nicotine dependence; Z79.891 Long term (current) use of opiate analgesic; Z79.84 Long term (current) use of oral hypoglycemic drugs; Z79.899 Other long term (current) drug therapy; Z88.1 Allergy status to other antibiotic agents; Z88.8 Allergy status to other drugs, medicaments and biological substances; J30.2 Other seasonal allergic rhinitis